=== PATIENT | male | born 1960 | race Caucasian/White ===

== ENCOUNTER 2024-10-03 17:16 | Emergency (ER) | payer MEDICAID, SELFPAY ==
[2024-10-03] VITALS (12 sets, daily range): BP systolic 93–129; BP diastolic 58–92; PULSE 60–90; RESP 12–21; TEMP 36.6–36.7; O2SAT 93–100; BMI 21.4
--- NOTE | 2024-10-03 17:19 | XR_ITS ---
PROCEDURE INFORMATION: Exam: XR Chest Exam date and time: 10/03/2024 5:31 PM Age: 64 years old Clinical indication: Injury or trauma; Fall; Blunt trauma (contusions or hematomas); Additional info: Fall, L shoulder/clav pain TECHNIQUE: Imaging protocol: Radiologic exam of the chest. Views: 1 view. COMPARISON: CR XR CLAVICLE LT 10/03/2024 5:31 PM FINDINGS: Lungs: Unremarkable. No consolidation. Pleural spaces: Unremarkable. No pleural effusion. No pneumothorax. Heart/Mediastinum: Unremarkable. No cardiomegaly. Bones/joints: Comminuted segmental fractures of the mid to distal left clavicle redemonstrated. Displaced fractures of the posterior left 6th through 8th ribs noted thought to be subacute to chronic. Old fracture of the right posterior 7th rib noted. Resection of the distal right clavicle. Old healed fracture of the proximal right humerus. IMPRESSION: 1. Comminuted segmental left clavicle fracture redemonstrated. 2. Left posterior 6th through 8th rib fractures favored to be subacute to chronic. No other acute abnormality identified.
--- NOTE | 2024-10-03 17:19 | XR_ITS ---
PROCEDURE INFORMATION: Exam: XR Left Shoulder Exam date and time: 10/03/2024 5:31 PM Age: 64 years old Clinical indication: Injury or trauma; Fall; Blunt trauma (contusions or hematomas); Shoulder; Left; Additional info: Fall, anterior joint pain TECHNIQUE: Imaging protocol: Radiologic exam of the left shoulder. Views: 2 or more views. COMPARISON: CR XR CLAVICLE LT 10/03/2024 5:31 PM FINDINGS: Bones/joints: A fracture of the mid left clavicle with inferior displacement of the distal fracture component noted. Additional fracture of the more distal portion of the left clavicle noted that may be acute versus subacute. Evidence for displaced fractures of the posterolateral left 6th and 7th ribs of indeterminate age. Old fracture of the lateral 4th left rib noted. Soft tissues: Normal. IMPRESSION: 1. Comminuted left clavicle fractures. The distal fracture component potentially may be subacute. 2. Fractures of the left 6th and 7th ribs of indeterminate age and potentially may be healing or healed fractures if no specific symptoms in this region.
--- NOTE | 2024-10-03 17:19 | XR_ITS ---
PROCEDURE INFORMATION: Exam: XR Left Clavicle, Complete Exam date and time: 10/03/2024 5:31 PM Age: 64 years old Clinical indication: Injury or trauma; Fall; Blunt trauma (contusions or hematomas); Shoulder; Left; Additional info: Fall, deformity TECHNIQUE: Imaging protocol: Radiologic exam of the left clavicle. Complete exam. Views: Any number of views. COMPARISON: CR XR SHOULDER LT MIN 2V 10/03/2024 5:31 PM FINDINGS: Bones/joints: Comminuted segmental fracture of the mid to distal left clavicle. The most distal fracture component potentially may be subacute. Soft tissues: Normal. IMPRESSION: Comminuted left clavicle fractures redemonstrated.
[2024-10-03] MEDS: KETOROLAC 30MG/ML VIAL 15 MG IV (17:27)
[2024-10-03] MEDS: HYDROMORPHONE 2MG/ML SYRINGE 0.5 MG IV (17:28)
[2024-10-03 17:33] LABS: Basophils % 0.2 % (0.1-2.0); Eosinophils # 0.2 Kmm3 (0.0-0.4); Eosinophils % 2.2 % (0.1-12.0); Hemoglobin 11.5 g/dL (14.1-18.0); Immature Granulocytes # 0.03 10^3uL; Immature Granulocytes % 0.3 %; Lymphocytes # 2.5 K/mm3 (0.7-4.5); Lymphocytes % 23.3 % (10-50); Mean Corpuscular HGB Conc 31.1 g/dL (31.8-35.4); Mean Corpuscular Hemoglobin 24.5 pg (27.0-31.2); Mean Corpuscular Volume 78.7 fl (80-94); Mean Platelet Volume 10.4 fl (7.4-10.4); Monocytes # 1.4 K/mm3 (0.1-1.0); Monocytes % 12.7 % (1.7-9.3); Neutrophils # 6.7 K/mm3 (1.8-7.8); Neutrophils % 61.3 % (37.0-80.0); Nucleated Red Blood Cells # 0 10^3/uL; Nucleated Red Blood Cells % 0 %; Platelet Count 453 K/mm3 (142-424); Red Cell Distribution Width 21.5 % (11.5-17.5); Red Cell Distribution Width-SD 58.4 fL; White Blood Count 10.8 K/mm3 (4.8-10.8)
--- NOTE | 2024-10-03 17:33 | XR_ITS ---
PROCEDURE INFORMATION: Exam: XR Left Foot Exam date and time: 10/03/2024 5:35 PM Age: 64 years old Clinical indication: Other: Wound; Additional info: Wound 1st digit TECHNIQUE: Imaging protocol: Radiologic exam of the left foot. Views: 3 or more views. COMPARISON: No relevant prior studies available. FINDINGS: Bones/joints: Hallux valgus and bunion and degenerative changes of the 1st MTP joint. Small ulcer lateral to the 1st metatarsal head. No underlying osteomyelitis. No acute fracture identified. Soft tissues: Normal. IMPRESSION: Small ulcer adjacent to the 1st metatarsal head with no acute bony abnormality.
[2024-10-03 17:36] LABS: Albumin Level 4.1 g/dl (3.5-5.0); Chloride 107 mmol/L (98-107)
[2024-10-03 17:37] LABS: Potassium 3.9 mmoL/L (3.5-5.1); Sodium 139 mmol/L (136-145)
[2024-10-03 17:39] LABS: Alanine Aminotransferase 17 U/L (12-78); Anion Gap 10.9 mEq/L (5-15); Aspartate Amino Transferase 25 U/L (17-59); Blood Urea Nitrogen 3 mg/dl (9-20); Carbon Dioxide 25 mmol/L (22.0-30.0); Creatinine Clearance Estimated 71 mL/min (50-200); Estimated Glomerular Filt Rate 168 ml/min (>60); GFR (African American) 204 ML/MIN (>60)
[2024-10-03 17:40] LABS: Albumin/Globulin Ratio 1.3 (1.1-1.8); Alkaline Phosphatase 71 U/L (38-126); Bilirubin,Total 0.4 mg/dl (0.2-1.3); Calcium 8.8 mg/dl (8.4-10.2); Chol/HDL Ratio 2.6 (1-3.5); Cholesterol 124 mg/dl (140-200); Globulin 3.1 g/dL (1.3-3.2); Glucose 97 mg/dl (74-100); HDL Cholesterol 47 mg/dl (40-60); Total Protein,Serum 7.2 g/dl (6.3-8.2); Triglycerides 127 mg/dl (30-150); VLDL Cholesterol 25 mg/dL (0-40)
--- OUTSIDE RECORDS SUMMARY | 2024-10-03 17:40 | XMS_ITS | Clinical Summary ---
Author Organization [facility] are -Transitions Address [address] [place] [phone] Phone Care Team Providers Care Director Of Operations For Therapy Name Role Phone Darshana Hoffmann APRN Primary Care Physician + Conditions or Problems Problem Name Problem Code Onset Date Status Entry Date Provider Comment Standard Description Annotate Body mass index (BMI) 21.0-21.9; adult Z68.21 (ICD-10-CM) 05/05 Active 05/05 Darshana Hoffmann APRN Body mass index [BMI] 21.0-21.9, adult Body mass index (BMI) 25.0-25.9; adult Z68.25 (ICD-10-CM) 04/21 Correctio n 04/21 Darshana Hoffmann APRN Body mass index [BMI] 25.0-25.9, adult Leg cramps 005175790 (SNOMED CT) 05/05 Active 05/05 Darshana Hoffmann APRN Cramp in lower limb Leg pain, bilateral 05752055 (SNOMED CT) 04/21 Active 04/21 Akilah Elder MANAGER CONTRACT Pain in lower limb Body mass index (BMI) 25.0-25.9; adult Z68.25 (ICD-10-CM) 04/21 Removed 04/21 Akilah Elder MANAGER CONTRACT Body mass index [BMI] 25.0-25.9, adult Body mass index (BMI) 21.0-21.9; adult Z68.21 (ICD-10-CM) Correctio n Akilah Elder APRN Body mass index [BMI] 21.0-21.9, adult Sore throat (acute) 720113781 (SNOMED CT) 04/21 Inactive 04/21 Akilah Mejíazenobia MANAGER CONTRACT Pain in throat Runny nose 49654098 (SNOMED CT) 04/21 Inactive 04/21 Akilah Elder MANAGER CONTRACT Rhinitis Body mass index (BMI) 21.0-21.9; adult Z68.21 (ICD-10-CM) Removed Junejennifer Salazar MANAGER CONTRACT Body mass index [BMI] 21.0-21.9, adult Body mass index (BMI) 20.0-20.9; adult Z68.20 (ICD-10-CM) Correctio n Junejennifer Ayalamary anne MANAGER CONTRACT Body mass index [BMI] 20.0-20.9, adult Neck pain, chronic 25731104267 07 (SNOMED CT) Active Deepti Ayalamary anne MANAGER CONTRACT Chronic neck pain Body mass index (BMI) 20.0-20.9; adult Z68.20 (ICD-10-CM) Removed Darshana Hoffmann APRN Body mass index [BMI] 20.0-20.9, adult Body mass index (BMI) 19 or less; adult Z68.1 (ICD-10-CM) 08/19 Correctio n 08/19 Darshana Hoffmann APRN Body mass index [BMI] 19.9 or less, adult Body mass index (BMI) 19 or less; adult Z68.1 (ICD-10-CM) 08/19 Removed 08/19 Darshana Potts APRN Body mass index [BMI] 19.9 or less, adult Screening for diabetes mellitus 034494756 (SNOMED CT) 08/19 Inactive 08/19 Darshana Potts APRN Diabetes mellitus screening Screening for prostate cancer 040089980 (SNOMED CT) 08/19 Inactive 08/19 Darshana Potts MANAGER CONTRACT Screening for malignant neoplasm of prostate Hx of CVA 028249940 (SNOMED CT) 08/19 Active 08/19 Darshana Potts MANAGER CONTRACT History of cerebrovascula r accident RIGHT PONTINE STROKE Tobacco User 815159815 (SNOMED CT) 08/19 Active 08/19 Darshana Potts MANAGER CONTRACT Tobacco user Hx of alcohol abuse 748816183 (SNOMED CT) 08/19 Active 08/19 Darshana Potts APRN History of alcohol abuse Hx of iron deficiency anemia 574890485 (SNOMED CT) 08/19 Active 08/19 Darshana Potts APRN H/O: anemia - iron deficient Screening for colon cancer 514546607 (SNOMED CT) 08/19 Inactive 08/19 Darshana Potts APRN Screening for malignant neoplasm of colon CLOSED FRACTURE OF NAVICULAR BONE OF WRIST S62.009 (ICD-10-CM) 11/29 Active 11/29 Pratik Monique MD Unspecified fracture of navicular [scaphoid] bone of unspecified wrist FRACTURE, WRIST, RIGHT 46946024 (SNOMED CT) 11/23 Active 11/23 Pratik Monique MD Fracture of carpal bone HYPERTENSIO N 26655731 (SNOMED CT) 11/22 Active 11/22 Pratik Monique MD Hypertensive disorder ALCOHOL ABUSE 65164081 (SNOMED CT) 11/22 Active 11/22 Pratik Monique MD Harmful pattern of use of alcohol WRIST PAIN RIGHT M25.539 (ICD-10-CM) 11/22 Active 11/22 Pratik Monique MD Pain in unspecified wrist Medications Medication Instructions Start Date Stop Date Generic Name ND Provider loperamide 2 mg tablet TAKE 2 TABLETS BY MOUTH ONCE THEN TAKE 1 TABLET AFTER EACH LOOSE BOWEL MOVEMENT. MAX 6 TABLETS IN 24 HOURS. FOR DIARRHEA loperamide 15308182465 Darshana Hoffmann APRN LOPERAMIDE HCL 2 MG TABS TAKE 2 TABLETS BY MOUTH ONCE THEN TAKE 1 TABLET AFTER EACH LOOSE BOWEL MOVEMENT. MAX 6 TABLETS IN 24 HOURS. as neededFOR DIARRHEA loperamide 69422237489 Darshana Hoffmann APRN SM IRON 325 (65 Fe) MG TABS Take 1 tablet by mouth once a day ferrous sulfate 60872092701 Darshana Hoffmann APRN LORATADINE 10 MG TABS as needed as directed TAKE 1 TABLET BY MOUTH EVERY DAY for runny nose and allergies loratadine 73706602853 Akilah Elder APRN FLUTICASONE PROPIONATE 50 MCG/ACT SUSP [place] 2 spray into both nostrils once a day as needed as directed FOR NASAL CONGESTION fluticasone propionate 02939789526 Akilah Elder APRN COUGH DROPS 5 MG LOZG Hold 1 lozenge in mouth four times a day as needed for cough/sore throat menthol 65566137053 Akilah Elder APRN NICODERM CQ 14 MG/24HR PT24 Apply 1 patch to skin once a day remove and replace patch daily for 6 weeks nicotine 72904946645 Deepti Salazar APRN ACETAMINOPHEN 500 MG TABS Take 1 tablet by mouth every six to eight hours as needed for pain for neck pain acetaminophen 70571243570 Deepti Salazar APRN ATORVASTATIN CALCIUM 40 MG TABS Take 1 tablet by mouth every night atorvastatin 96890801760 Darshana Hoffmann APRN CLOPIDOGREL BISULFATE 75 MG TABS TAKE 1 TABLET BY MOUTH EVERY DAY clopidogrel 02782529205 Darshana Hoffmann APRN ESCITALOPRAM OXALATE 10 MG TABS Take 1 tablet by mouth once a day escitalopram oxalate 15927012486 Darshana Hoffmann APRN LISINOPRIL 5 MG TABS Take 1 tablet by mouth once a day lisinopril 37293601213 Darshana Hoffmann APRN OXCARBAZEPINE 150 MG TABS 1 tablet by mouth twice a day oxcarbazepine 68350782723 Darshana Hoffmann APRN PANTOPRAZOLE SODIUM 40 MG TBEC Take 1 tablet by mouth once a day pantoprazole 40730016758 Darshanaisabel Hoffmann APRN TAMSULOSIN HCL 0.4 MG CAPS Take 1 capsule by mouth every night for prostate tamsulosin 89266831780 Darshana Hoffmann APRN TRAZODONE HCL 50 MG TABS Take 1 tablet by mouth every night at bedtime as needed as directed trazodone 73717543331 Darshanaisabel Hoffmann APRN ATORVASTATIN CALCIUM 40 MG TABS Take 1 tablet by mouth every night atorvastatin 94320370102 Darshana Delroy CHESTERN AMLODIPINE BESYLATE 5 MG TABS Take 1 tablet by mouth once a day amlodipine 17357526356 Darshana Potts APRN AMLODIPINE BESYLATE 5 MG TABS TAKE 1 TABLET BY MOUTH 1 TIME A DAY AMLODIPINE BESYLATE 12026452491 Pratik Monique MD Medications Administered No information available. Allergies, Adverse Reactions, Alerts Allergy Name Reaction Description Start Date Severity Statu s Provider IBUPROFEN pt breaks out in hives Severe Active Pratik Monique MD Results Date Name Value Unit Range Flag Description Office Visit: Hx of CVA LDL GOAL <70 mg/dL LDL target l evel Clinical Lists Update: Prelo ad Flowsheet - 06/22/22 bloodwork LDL 56 mg/dL Cholesterol i n LDL [Mass/volume] in Serum or Plasma - mg/dL HDL 58 mg/dL Cholesterol i n HDL [Mass/volume] in Serum or Plasma - mg/dL TRIGLYC TOT 91 mg/dL Triglycer alpesh [Mass/volume] in Serum or Plasma - mg/dL CHOLESTEROL 131 mg/dL Cholester ol [Mass/volume] in Serum or Plasma - mg/dL TRANSFERRIN 280 mg/dL transferr in, serum TIBC 392 ug/dL Iron binding capacity [Mass/volume] in Serum or Plasma EGFR 111 mL/min/1 .73m2 Glomerular filtration rate/1.73 sq M.predicted [Volume Rate/Area] in Serum, Plasma or Blood by Creatinine-based formula (MDRD) CO2 TOTAL 22 mmol/L carbon diox alpesh, serum, total Lab Report: HEPATITIS PANEL, ACUTE W/REFLEX TO CONFIRMATION, HEPATITIS P ... HGBA1C 4.9 % OF TOTAL HGB % <5.7 N Hemoglobin A1c/Hemoglobin, total in Blood - % TSH 2.59 u[iU]/mL 0.40-4.50 N Thyrotropi n [Units/volume] in Serum or Plasma PSA 2.91 ng/mL < OR = 4.00 N Prostate specific Ag [Mass/volume] in Serum or Plasma B12 831 pg/mL 200-1100 N Cobalamin (V itamin B12) [Mass/volume] in Serum or Plasma FOLATE 14.2 ng/mL N Folate [Mass/volume] in Serum or Plasma IRON SATUR % 3 % (CALC) % 20-48 L Iron saturation [Mass Fraction] in Serum or Plasma IRON 13 ug/dL 50-180 L Iron [Mass/vo lume] in Serum or Plasma HCV RNA QT <15 NOT DETECTED IU/mL [iU]/mL NOT DETECTED N Hepatitis C virus RNA [Units/volume] (viral load) in Specimen by EJ with probe detection HEP C AB REACTIVE NON-REACTIV E A Hepatitis C virus Ab [Presence] in Serum HB CORE IGM NON-REACTIVE NON-REACTIV E N Hepatitis B virus core IgM Ab [Units/volume] in Serum HBSAG NON-REACTIVE NON-REACTIV E N Hepatitis B virus surface Ag [Units/volume] in Serum ANTI-HAV IGM NON-REACTIVE NON-REACTI V E N Hepatitis A virus IgM Ab [Presence] in Serum Lab Report: COMPREHENSIVE ME TABOLIC PANEL, CBC (INCLUDES DIFF/PLT) BASO % MANU 0.7 % N basophils as percent of blood leukocytes, manual count EOS % MANU 2.1 % N eosinophil s as percent of blood leukocytes, manual count MONOCYTE % 14.3 % N Monocytes/ 100 leukocytes in Blood by Automated count LYMPH% P BLD 33.6 % N lymphocy jessica as percent of blood leukocytes PMN % 49.3 % N Neutrophils/1 00 leukocytes in Blood by Automated count ABS BASOS 62 {Cells}/ uL 0-200 N Basophils [#/volume] in Blood ABS EOS 187 {Cells}/ uL 15-500 N Eosinophils [#/volume] in Blood ABS MONOS 1273 {Cells}/ uL 200-950 H Monocytes [#/volume] in Blood ABSLYMPHCT 2990 {Cells}/ uL 850-3900 N Lymphocytes [#/volume] in Blood ABS NEUTROPH 4388 CELLS/UL 10*3/uL 9665-3618 N Neutrophils [#/volume] in Blood MPV 11.4 fL 7.5-12.5 N Platelet afua n volume [Entitic volume] in Blood by Bhupendra PLATELETK/UL 414 THOUSAND/UL 10*3/uL 140-400 H platelet count RDW 16.4 % 11.0-15.0 H Erythrocyte distribution width [Ratio] by Automated count OL-MCHC 30.0 g/dL 32.0-36.0 L mean corpus cular hemoglobin concentration, rbc MCH 24.4 pg 27.0-33.0 L MCH [Entiti c mass] by Automated count MCV 81.3 fL 80.0-100.0 N MCV [Entit ic volume] by Automated count HCT 34.7 % 38.5-50.0 L Hematocrit [Volume Fraction] of Blood by Automated count HGB 10.4 g/dL 13.2-17.1 L Hemoglobin [Mass/volume] in Blood RBC M/UL 4.27 MILLION/UL 10*6/uL 4.20-5.80 N red blood count WBC CT BLOOD 8.9 10*3/uL 3.8-10.8 N leukocy te count, blood SGPT (ALT) 15 U/L 9-46 N Alanine aminotransferase [Enzymatic activity/volume] in Serum or Plasma SGOT (AST) 17 U/L 10-35 N Aspartate aminotransferase [Enzymatic activity/volume] in Serum or Plasma ALK PHOS 64 U/L 35-144 N Alkaline phosphatase [Enzymatic activity/volume] in Blood BILI TOTAL 0.6 mg/dL 0.2-1.2 N Bilirubin. total [Mass/volume] in Serum or Plasma A/G RATIO 1.4 (calc) 1.0-2.5 N Albumin/ Globulin [Mass Ratio] in Serum or Plasma GLOBULIN TOT 2.9 G/DL (CALC) g/dL 1.9-3.7 N Globulin [Mass/volume] in Serum ALBUMIN EOP 4.2 g/dL 3.6-5.1 N Albumin [Mass/volume] in Serum or Plasma by Electrophoresis PROTEIN, TOT 7.1 g/dL 6.1-8.1 N Protein [Mass/volume] in Serum or Plasma CALCIUM 9.3 mg/dL 8.6-10.3 N Calcium [Moles/volume] in Serum or Plasma CO2 25 mmol/L 20-32 N Carbon dioxid e, total [Moles/volume] in Venous blood CHLORIDE BLD 102 mmol/L 98-110 N chloride , blood POTASSIUM 4.2 mmol/L 3.5-5.3 N Potassium [Moles/volume] in Serum or Plasma SODIUM 135 mmol/L 135-146 N Sodium [Moles/volume] in Serum or Plasma BUN/CREAT 14 (calc) 6-22 N Urea nitrogen/Creatinine [Mass Ratio] in Serum or Plasma CREATININE 0.69 mg/dL 0.70-1.35 L Creatini ne [Mass/volume] in Serum or Plasma BUN 10 mg/dL 7-25 N Urea nitrogen [Mass/volume] in Serum or Plasma GLUCOSE SER 105 mg/dL 65-99 H Glucose [Mass/volume] in Serum or Plasma Plan of Care Type Date Detail Referral [employer] [facility] [place], [address] Pending order T1 CBC with diff Pending order T1 CMP Pending order T1 CBC with diff Pending order T1 CMP Pending order T1 HGBA1c Pending order T1 TSH reflex to free T4 Pending order T1 Prostate Scre ening Pending order T1 Acute Hepatit s Panel Pending order T1 TIBC w iron l evel Pending order T1 B12 Pending order T1 Folic Acid Pending order T1 G.C. Chlamydi a Pending order T1 G.C. Chlamydi a Pending Order exclud ed from report: Pending order MRI Wrist w-out contrast Pending order X-Ray Wrist Patient education Patient Educat ion Given Patient education Patient Educat ion Given Patient education Patient Educat ion Given Procedures Code Procedure Name Date Entry Date CPT-3074F Most recent systolic blood pressure <130 mm Hg CPT-3078F Most recent diastoli c blood pressure <80 mm Hg CPT-1159F Medication list docu mented in medical record [facility]-[id number] Medication Reconciliation 4004F Patient screened for tobacco use and received tobacco cessation intervention [id number] Current every day smoker 20 11/03/18 [id number] Smoking cessation education CPT-1160F Review of all medica tions by a prescribing practitioner [facility] 6399 T1 CBC with diff [facility] 36524 T1 CMP [id number] Medication Reconciliation CPT-3074F Most recent systolic blood pressure <130 mm Hg CPT-3078F Most recent diastoli c blood pressure <80 mm Hg CPT-1159F Medication list docu mented in medical record CPT-1160F Review of all medica tions by a prescribing practitioner 4004F Patient screened for tobacco use and received tobacco cessation intervention [id number] Current every day smoker 20 11/03/04 [id number] Smoking cessation education [id number] Giving encouragement to exercise 4004F Patient screened for tobacco use and received tobacco cessation intervention [id number] Medication Reconciliation CPT-3074F Most recent systolic blood pressure <130 mm Hg CPT-3078F Most recent diastoli c blood pressure <80 mm Hg CPT-1159F Medication list docu mented in medical record CPT-1160F Review of all medica tions by a prescribing practitioner [id number] Medication Reconciliation 4004F Patient screened for tobacco use and received tobacco cessation intervention [id number] Current every day smoker 20 08/02/29 [id number] Smoking cessation education CPT-3074F Most recent systolic blood pressure <130 mm Hg CPT-3078F Most recent diastoli c blood pressure <80 mm Hg CPT-1159F Medication list docu mented in medical record CPT-1160F Review of all medica tions by a prescribing practitioner CPT-1159F Medication list docu mented in medical record CPT-3075F Most recent systolic blood pressure 130-139 mm Hg CPT-3078F Most recent diastoli c blood pressure <80 mm Hg [facility] 41904 T1 G.C. Chlamydia 4004F Patient screened for tobacco use and received tobacco cessation intervention [facility]-[id number] Medication Reconciliation [facility] 6399 T1 CBC with diff [facility] 20516 T1 CMP [facility] 496 T1 HGBA1c [facility] 04803 T1 TSH reflex to free T4 06/21/03 [facility] 5363 T1 Prostate Screening 08/19 [facility] 00443 T1 Acute Hepatits Panel 2022 [facility] 7573 T1 TIBC w iron level [facility] 927 T1 B12 [facility] 466 T1 Folic Acid ORTHO COMMON Orthopedic Referral [facility] 20 30/12/28 mri wrist w-o edg MRI Wrist w-out contrast X-Ray Wrist X-Ray Wrist Vital Signs Date Name Value Unit Description BMI (Body Mass Index) 21.82 kg/m2 Bod y Mass Index (Ratio) Body Temperature 98.2 [degF] temperat ure E&M Body Temperature 36.78 Dorota temperat ure in centigrade E&M BP Diastolic 68 mm[Hg] blood pressu re, diastolic BP Systolic 107 mm[Hg] blood pressur e, systolic BSA (Body Surface Area) 1.84 b danelle surface area Heart Rate 72 /min pulse rate Height 70 [in_us] height E&M Height 177.8 cm height in cent imeters E&M Weight Measured 68.86 kg weight in kilograms E&M Weight Measured 151.5 [lb_av] weight E& M Weight Measured 151.5 [lb_av] weight E& M Heart Rate 89 /min pulse rate 10 Immunizations Vaccine Administration Date Standard Description CVX Co de Dose flu vax#1 141 Unknown Adacel Intramuscular Suspension 5-2-15.5 Adacel Intramuscular Suspension 5-2-15.5 115 Unknown Advance Directives No information available.
--- OUTSIDE RECORDS SUMMARY | 2024-10-03 17:40 | XMS_ITS | Clinical Summary ---
Author Organization [facility] Address [facility] [place] [address] Phone Care Team Providers Care Clay Hoister Name Role Phone Brandy Martell Unavailable [phone] Conditions or Problems No information available. Medications No information available. Medications Administered No information available. Allergies, Adverse Reactions, Alerts No information available. Results No information available. Plan of Care No information available. Procedures No information available. Vital Signs No information available. Immunizations No information available. Advance Directives No information available.
--- NOTE | 2024-10-03 17:45 | PC.NURSE ---
CONSULTED ON THE PTS XRAYS
[2024-10-03 17:51] LABS: Direct LDL Cholesterol 39.27 mg/dL (100-129)
--- NOTE | 2024-10-03 17:51 | ED_ITS ---
Discharge Plan Disposition Patient Disposition: Home, Self-Care Prescriptions Prescriptions: New doxycycline hyclate 100 mg capsule 100 mg PO BID 7 Days Qty: 14 0RF Referrals Follow up/Referrals: Provider,Referral, MD [Primary Care Provider, Medical] - See instructions Nate Patterson DO [Staff Physician, Orthopedics] - See instructions Krista Almodovar DPM [Staff Physician, Podiatry] - See instructions Activity Restrictions/Add. Instructions Additional Instructions/Restrictions: Call your family doctor to establish care for this visit to the emergency department and schedule follow-up within 48 hours to ensure improvement. If you have any worsening of your condition or any other concerning signs or symptoms, return to the emergency department or your primary care doctor for further evaluation. Call Dr. Almodovar for your foot to schedule follow-up with her in order to manage the ulcer. Doxycycline twice daily for 7 days. While taking doxycycline, limit sunlight exposure. It can cause severe sunburns even if you do not typically get sunburn. Be sure to wear hats, long sleeves, sunscreen if you are out in the sun for prolonged periods of time while taking doxycycline. Call Dr. Patterson to have clavicle (collarbone) managed to determine whether or not you need surgery in the long-term. Clinical Impressions Clinical Impression: Cellulitis of left foot, Closed fracture of left clavicle Print Language Print Language: Swazi Discharge ED Provider: Abhinav Huitron General Adult HPI General Chief complaint: Extremity Injury, Upper Stated complaint: Fall Time Seen by Provider: 10/03/24 17:19 History of Present Illness HPI narrative: Please note that above description of symptoms, in this electronic medical record under categorization of recalled from ER triage doctor by RN are reflective of an initial nursing assessment, however, is not reflective of my full history and physical exam that was personally taken and clarified. Consequentially, this preceding description of symptoms, which may include the patient's categorized chief complaint in the EMR, do not reflect my personal clinical impression, and the ultimate description of history of present illness and patient stated complaints should be deferred to this section of the note. Unless stated otherwise or congruent with this section of the note, additional signs, symptoms, or incongruence should be interpreted as inaccurate with my clinical impression. Related Data Previous Rx's ?Medication ?Instructions ?Recorded doxycycline hyclate 100 mg capsule 100 mg PO BID 7 day s #14 caps 10/03/24 Allergies Allergy/AdvReac Type Severity Reaction Status Date / Time aspirin Allergy Unknown Verified 10/03/24 17:23 allergy reaction [facility] Disclaimer: The information contained in this section may have been updated after the patient was seen, as this information can be updated by other users. Social History Smoking Status: Current every day smoker alcohol intake: never current occupational status: retired Travel in the last 8 weeks?: None ROS Obtained: Yes All systems reviewed & no additional complaints except as documented Physical Exam General General appearance: alert and in distress (secondary to pain) Head Head exam: atraumatic and normocephalic Eye Eye exam: Present normal appearance, PERRL and EOMI Neck Neck exam: Present normal inspection, full ROM and trachea midline Chest Chest inspection: Present tenderness (Left upper outer chest with obvious deformity tenting the skin at the clavicle) Respiratory Respiratory exam: Present normal lung sounds bilaterally; Absent respiratory distress, wheezes, stridor, accessory muscle use or prolonged expiratory phase Cardiovascular Cardiovascular exam: Present other (Pulses equal symmetric in upper and lower extremities) Abdominal Exam Abdominal exam: Present soft; Absent distention, tenderness or pulsatile mass Extremities Exam Extremities exam: Present other (Tenderness of the proximal shoulder anteriorly in the joint space. No obvious deformity or swelling of the shoulder itself.); Absent edema Neurological Exam Neurological exam: Present alert, oriented X3 and CN II-XII intact; Absent motor sensory deficit Skin Skin exam: Present warm and dry; Absent diaphoresis or erythema Medical Decision Making Medical Records Medical records reviewed: Yes I reviewed the patient's medical records. Screening: Per USPSTF and CDC recommendations, given the prevalence of disease in our region, it is our hospital?s policy to screen for HIV and viral Hepatitis for all patients aged 18 and over and those with ongoing risk factors. Thai Inquiry Pt receiving controlled substance: No Thai was queried for this patient: No Vital Signs: 10/03/24 17:31 10/03/24 17:49 10/03/24 18:15 Temperature 97.8 F Temperature Source Oral Pulse Rate 82 65 Pulse Rate [Left] 90 Respiratory Rate 21 16 18 Blood Pressure 117/82 117/82 Blood Pressure [Right Arm] 103/79 L Blood Pressure Mean Blood Pressure Mean [Right Arm] 87 Blood Pressure Source Blood Pressure Source [Right Arm] Automatic Cuff 02 Sat by Pulse Oximetry 93 L 95 97 Oxygen Delivery Method Room Air 10/03/24 18:35 10/03/24 18:37 Temperature Temperature Source Pulse Rate 62 67 Pulse Rate [Left] Respiratory Rate 16 16 Blood Pressure 128/92 H 128/92 H Blood Pressure [Right Arm] Blood Pressure Mean 99 Blood Pressure Mean [Right Arm] Blood Pressure Source Automatic Cuff Blood Pressure Source [Right Arm] 02 Sat by Pulse Oximetry 98 97 Oxygen Delivery Method Room Air Lab Data Lab Results 10/03/24 17:20: WBC 10.8, RBC 4.70, Hgb 11.5 L, Hct 37.0 L, MCV 78.7 L, MCH 24.5 L, MCHC 31.1 L, RDW 21.5 H, Plt Count 453 H, MPV 10.4, Neut % (Auto) 61.3, Lymph % (Auto) 23.3, Custer % (Auto) 12.7 H, Eos % (Auto) 2.2, Baso % (Auto) 0.2, Neut # (Auto) 6.7, Lymph # (Auto) 2.5, Custer # (Auto) 1.4 H, Eos # (Auto) 0.2, Baso # (Auto) 0.0, ESR 17, Sodium 139, Potassium 3.9, Chloride 107, Carbon Dioxide 25, Anion Gap 10.9, BUN 3 L, Creatinine 0.50 L, Estimated Creat Clear 71, Estimated GFR 168, Est GFR ( Amer) 204, Glucose 97, Hemoglobin A1c 5.3, Calcium 8.8, Total Bilirubin 0.4, AST 25, ALT 17, Alkaline Phosphatase 71, C-Reactive Protein 37.6 H, Total Protein 7.2, Albumin 4.1, Globulin 3.1, Albumin/Globulin Ratio 1.3, Triglycerides 127, Cholesterol 124 L, LDL Cholesterol Direct 39.27 L, VLDL Cholesterol 25, HDL Cholesterol 47, Cholesterol/HDL Ratio 2.6 10/03/24 17:42: Lactate 1.8 10/03/24 18:32: HCV Ab JACQUELINE w/Rflx PCR Qn Reactive, HIV Ag/Ab Combo Qual Negative 10/03/24 17:20 10/03/24 17:20 Orders (Tests/Meds): ED MEDICATIONS Generic Name Dose Route Start Last Admin Trade Name Freq PRN Reason Stop Dose Admin Vancomycin/PEG/NADA/Lysine/Water 1.25 gm in 250 mls @ 125 mls/hr 10/03/24 19:15 10/03/24 19:44 Vancomycin 1.25gm/250ml (Peg) Premix IV 10/03/24 21:14 125 mls/hr ONCE ONE Administration Miscellaneous 1 each 10/03/24 19:15 10/03/24 19:29 Vancomycin Consult Request NOTAPPLIC 11/02/24 19:14 1 each [facility]SULT [facility] Administration Discontinued Medications Generic Name Dose Route Start Last Admin Trade Name Alejandra PRN Reason Stop Dose Admin Hydromorphone HCl 0.5 mg 10/03/24 17:19 10/03/24 17:28 Hydromorphone 2mg/Ml Syringe IV 10/03/24 17:20 0.5 mg ONCE ONE Administration Cefepime HCl 2 gm/ Sodium 100 mls @ 200 mls/hr 10/03/24 19:11 10/03/24 19:20 Chloride IV 10/03/24 19:40 200 mls/hr ONCE ONE Administration Ketorolac Tromethamine 15 mg 10/03/24 17:19 10/03/24 17:27 Ketorolac 30mg/Ml Vial IV 10/03/24 17:20 15 mg ONCE ONE Administration ORDERS Category Date Time Status CT shoulder LT wo con Stat Cat Scan 10/03/24 17:59 Completed Clavicle XR left [XR clavicle LT] Stat Exams 10/03/24 17:19 Completed Shoulder XR left minimum 2 views [XR shoulder LT min 2V Exams 10/03/24 17:19 Completed ] Stat XR chest portable Stat Exams 10/03/24 17:19 Completed XR foot LT min 3V Stat Exams 10/03/24 17:33 Completed CBC w/Auto Diff [Complete Blood Count Auto Diff] Stat Lab 10/03/24 17:20 Completed CMP [Comprehensive Metabolic Panel] Stat Lab 10/03/24 17:20 Completed CRP [C-Reactive Protein] Stat Lab 10/03/24 17:20 Completed Erythrocyte Sedimentation Rate Stat Lab 10/03/24 17:20 Completed HCV RNA PCR, Quant Stat Lab 10/03/24 18:32 Received HIV Combo Stat Lab 10/03/24 18:32 Completed Hemoglobin A1C Stat Lab 10/03/24 17:20 Completed Hepatitis C Ab Qual. W/ RFX Stat Lab 06/18/25 18:32 Completed Lactic Acid Stat Lab 10/03/24 17:42 Completed Lipid Panel Stat Lab 10/03/24 17:20 Completed Blood Culture Stat Micro 10/03/24 17:42 Received Wound Culture and Gram Stain Stat Micro 10/03/24 17:38 Results Medical Decision Narrative: This is a 64-year-old male presenting with fall. He states he was sitting in his chair at his assisted facility when he leaned forward, fell out of his chair, landed on his left upper extremity as it was down by his side. Had immediate pain in his left shoulder. States he is unable to elevate his left arm secondary to pain. EMS was called. On arrival, concern for deformity brought him to the emergency department. On arrival to the emergency department, patient had significant pain in his left shoulder. Unable to move it actively due to pain. Passive range of motion intact, but limited secondary to pain. Has anterior left shoulder pain, but obvious deformity at the left clavicle with skin tenting and significant tenderness. I contacted orthopedics, he recommended no acute management especially given patient has pain in his left foot. Repeat evaluation with patient, he is complaining of pain in his medial aspect of his left foot at his first MTP. Patient has obvious ulcer, redness, erythema, pain. Is consistent with cellulitis. X-rays obtained to see if patient has any degree of osteomyelitis underlying. On independent interpretation, no obvious bony erosion. Patient given first dose of vancomycin and cefepime here. I touch base with hospital medicine, no acute need for admission at this time. I agree with this, soft tissue cellulitis able to be treated with outpatient doxycycline. Also, orthopedist said that patient would not be acutely treated in terms of his left clavicular fracture especially if patient has ongoing infection and risk for seeding the hardware at this time. I feel is appropriate. This was relayed to patient. He is agreeable to outpatient management. Because patient at baseline without signs or symptoms of clinical decompensation, deemed appropriate for discharge. Results were relayed to patient[] who voiced understanding and were agreeable to outpatient management and follow up. I discussed my clinical impression with patient[] and answered all questions. At this time, the evidence for any other entities in the differential is insufficient to warrant any further testing or ED observation. This was explained as well. Advisory was given that persistent or worsening symptoms require further evaluation. I confirmed the understanding of this discussion. Orthopedic Shoe Fitter disclaimer Much of this encounter note is an electronic tensile tester spoken language to printed text. Electronic tensile tester of the spoken language may permit errors. Although I have reviewed the note, some errors may still exist. Critical Care Critical Care Time Critical Care Time: No
--- NOTE | 2024-10-03 17:59 | CT_ITS ---
PROCEDURE INFORMATION: Exam: CT Left Upper Extremity Without Contrast, Shoulder Exam date and time: 10/03/2024 6:10 PM Age: 64 years old Clinical indication: Injury or trauma; Fall; Blunt trauma (contusions or hematomas); Shoulder; Left; Additional info: Eval clavicle and shoulder after fall TECHNIQUE: Imaging protocol: Computed tomography of the left upper extremity without contrast. Exam focused on the shoulder. Radiation optimization: All CT scans at this facility use at least one of these dose optimization techniques: automated exposure control; mA and/or kV adjustment per patient size (includes targeted exams where dose is matched to clinical indication); or iterative reconstruction. COMPARISON: CR XR SHOULDER LT MIN 2V 10/03/2024 5:31 PM FINDINGS: Bones/joints: A comminuted fracture of the mid left clavicle with inferior displacement of the major distal fracture component. 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 Old-appearing incompletely united fractures of the posterolateral left 6th through 8th ribs. Old healed fractures of some of the lateral left ribs also noted. No other acute fracture. Soft tissues: Normal. IMPRESSION: 1. Comminuted acute fracture of the mid left clavicle with inferior displacement of the distal fracture components. 2. 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 3. 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
[2024-10-03 18:05] LABS: Lactic Acid 1.8 mmol/L (0.7-2.1)
[2024-10-03 18:10] LABS: C-Reactive Protein 37.6 mg/L (0-4)
[2024-10-03 18:48] LABS: Erythrocyte Sedimentation Rate 17 mm/hr (0-20)
--- NOTE | 2024-10-03 19:09 | PC.NURSE ---
ed provider on the phone at this time speaking with consulting physician.
[2024-10-03] MEDS: CEFEPIME HCL 2 GM in 0.9 % SODIUM CHLORIDE 100 ML IV (19:20)
[2024-10-03 19:21] LABS: Hemoglobin A1C 5.3 % (4.0-6.0)
[2024-10-03] MEDS: VANCOMYCIN CONSULT REQUEST 1 EACH NOTAPPLIC (19:29)
--- NOTE | 2024-10-03 19:29 | PC.NURSE ---
pt resting in bed with eyes closed, nad noted, rr even and non labored, skin pwd.
[2024-10-03 19:40] LABS: HIV Combo NEGATIVE (Negative)
[2024-10-03] MEDS: VANCOMYCIN/WATER FOR INJ (PEG) 1.25 GM/250 ML PIGGYBACK IV (19:44)
[2024-10-03 19:48] LABS: Hepatitis C Ab Qual. W/ RFX REACTIVE (Negative)
--- NOTE | 2024-10-03 19:51 | PC.NURSE ---
Pepsi given upon request with a snack.
--- NOTE | 2024-10-03 21:44 | PC.NURSE ---
multiple attempts at contacting [facility] with no success. No contacts at [facility].
--- NOTE | 2024-10-03 21:47 | PC.NURSE ---
no answer at [facility] at this time either.
--- NOTE | 2024-10-03 21:59 | PC.NURSE ---
Sha Hernandez contacted at this time with staff stating I will try to get ahold of [facility] if I haven't gotten ahold of anybody by 10:10 I'll come and get him myself.
--- NOTE | 2024-10-05 09:01 | PC.NURSE ---
Wound culture results reviewed by Dr. Read, no new orders received at this time.
--- NOTE | 2024-10-06 14:19 | PC.NURSE ---
I spoke with regarding the pts final wound culture. no change needed to treatment plan.
== END 2024-10-03 22:20 | disposition home or self-care (01) ==
PROVIDERS: Emergency Provider Emergency Medicine
DX: S42.002A Fracture of unspecified part of left clavicle, initial encounter for closed fracture (principal); L03.116 Cellulitis of left lower limb; F17.210 Nicotine dependence, cigarettes, uncomplicated; W07.XXXA Fall from chair, initial encounter
CPT/HCPCS: 71045; 73000; 73030; 73200; 73630; 80053; 80061; 80074; 83036; 83605; 85025; 85651; 86140; 87040; 87070; 87077; 87186; 87205; 87389; 87522; 96365; 96366; 96375; 99285; J0692; J1171; J1885; J3372

== ENCOUNTER 2024-10-29 14:34 | Emergency (ER) | payer MEDICAID, SELFPAY ==
[2024-10-29] VITALS (8 sets, daily range): BP systolic 107–149; BP diastolic 74–109; PULSE 69–91; RESP 15–16; TEMP 36.6–36.7; O2SAT 95–100; BMI 21.9
--- NOTE | 2024-10-29 14:36 | ED_ITS ---
Discharge Plan Disposition Chief Complaint: PAIN Prescriptions Prescriptions: No Action doxycycline hyclate 100 mg capsule 100 mg PO BID 7 Days Qty: 14 0RF Referrals Follow up/Referrals: Provider,Referral, MD [Primary Care Provider, Medical] - See instructions Print Language Print Language: Armenian Discharge ED Provider: Tia Lopez General Adult HPI General Chief complaint: PAIN Stated complaint: infected toe Time Seen by Provider: 10/29/24 14:35 Mode of Arrival: EMS Source of Information: Patient Limitations: No Limitations History of Present Illness HPI narrative: 64-year-old male presents to the emergency department via EMS, for a 2-month history of left foot pain, and ongoing left foot wound, patient is somewhat of a poor historian, states he has past medical history consistent with hypertension, denies any history of type 2 diabetes, no diabetic foot ulcer diabetic neuropathy, patient was seen in the emergency department on September 2024 for similar complaint, diagnosed with left foot cellulitis, no evidence of osteomyelitis on radiographic findings and laboratory studies at that time. Was treated with outpatient antibiotics. Patient denies any chest pain shortness of breath, admits to subjective fever and chills, no recorded Tmax, denies any abdominal pain nausea vomiting constipation diarrhea, denies any urinary type symptomatology, patient has no radicular type otology, no back pain, pain is located in his left plantar aspect of his foot, where he has ongoing wound, patient is a current everyday smoker, former alcohol use disorder, states he is 2 months clean and sober, after being what sounds like admitted to alcohol rehabilitation , denies any illicit drug use. Initial triage vitals are unremarkable. Onset (ago): month(s) Related Data Previous Rx's ?Medication ?Instructions ?Recorded doxycycline hyclate 100 mg capsule 100 mg PO BID 7 day s #14 caps 10/03/24 Allergies Allergy/AdvReac Type Severity Reaction Status Date / Time aspirin Allergy Unknown Verified 10/03/24 17:23 allergy reaction [facility] Disclaimer: The information contained in this section may have been updated after the patient was seen, as this information can be updated by other users. Social History Smoking Status: Current every day smoker alcohol intake: never current occupational status: retired Travel in the last 8 weeks?: None Have you lived/traveled outside US in past 30 days?: No Contact w/someone who lives/traveled outside US past 30 days?: No Exposure to someone with infectious disease in past 14 days?: No Do you have a fever (greater than 100.4 F or 38 C)?: No Have you tested positive for COVID-19?: No Exposed to someone with COVID-19 in past 14 days?: No Do you have a sore throat?: No Do you have a cough?: No Do you have any weakness?: No Do you have any diarrhea?: No Are you experiencing any unusual bleeding?: No Do you have any muscle aches/pain?: No Do you have any abdominal pain?: No Are you experiencing loss of taste or smell?: No ROS Obtained: Yes All systems reviewed & no additional complaints except as documented Physical Exam General General appearance: alert and in no apparent distress Head Head exam: atraumatic and normocephalic Eye Eye exam: Present PERRL and EOMI ENT ENT exam: Present mucous membranes moist Neck Neck exam: Present normal inspection Chest Chest inspection: Present normal inspection and symmetric chest wall rise Respiratory Respiratory exam: Present normal lung sounds bilaterally; Absent respiratory distress Cardiovascular Cardiovascular exam: Present regular rate and normal rhythm Abdominal Exam Abdominal exam: Present soft; Absent tenderness, guarding or rebound Extremities Exam Extremities exam: Present normal inspection Neurological Exam Neurological exam: Present alert and oriented X3 Psychiatric Psychiatric exam: Present normal affect Skin Skin exam: Present warm, dry, erythema and other (There is an area of what appears to be a stage I-II diabetic foot ulcer, with some active purulent discharge, and overlying erythema, no real induration or fluctuance per my exam there is pain palpation over the area, otherwise neurovascular intact.) Medical Decision Making Medical Records Medical records reviewed: Yes I reviewed the patient's medical records. Screening: Per USPSTF and CDC recommendations, given the prevalence of disease in our region, it is our hospital?s policy to screen for HIV and viral Hepatitis for all patients aged 18 and over and those with ongoing risk factors. Thai Inquiry Pt receiving controlled substance: No Thai was queried for this patient: No Vital Signs: 10/29/24 14:39 10/29/24 14:48 10/29/24 15:01 Temperature 97.9 F 97.9 F Temperature Source Oral Oral Pulse Rate 75 75 Pulse Rate [Right] 75 Respiratory Rate 15 15 Blood Pressure 149/109 H 127/76 Blood Pressure [Right Arm] 149/109 H Blood Pressure Mean [Right Arm] 122 Blood Pressure Source Automatic Cuff Blood Pressure Source [Right Arm] Automatic Cuff Blood Pressure Position Supine Blood Pressure Position [Right Arm] Supine 02 Sat by Pulse Oximetry 96 96 96 Oxygen Delivery Method Room Air Room Air Lab Data Lab results reviewed: Yes I reviewed the patient's lab results. Orders (Tests/Meds): ORDERS Category Date Time Status CT foot LT w con Stat Cat Scan 10/29/24 14:53 Ordered CRP [C-Reactive Protein] Stat Lab 10/29/24 14:52 Ordered Complete Blood Count Auto Diff Stat Lab 10/29/24 14:52 Ordered Comprehensive Metabolic Panel Stat Lab 10/29/24 14:52 Ordered ESR [Erythrocyte Sedimentation Rate] Stat Lab 10/29/24 14:52 Ordered Lactic Acid Stat Lab 10/29/24 14:52 Ordered Blood Culture Stat Micro 10/29/24 15:54 Ordered Medical Decision Narrative: 64-year-old male presents to the emergency department with left foot pain/left foot wound, differential diagnosis include but not limited to diabetic foot ulcer, cellulitis, cellulitic abscess, osteomyelitis, NSTI, gangrene infection, pressure ulcer among others. Will obtain basic laboratory studies, inflammatory markers to include CRP and ESR, lactic acid level, and CT foot on the left with contrast.
--- OUTSIDE RECORDS SUMMARY | 2024-10-29 14:45 | XMS_ITS | Clinical Summary ---
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 Role Phone Darshana Hoffmann APRN Primary [...] mass index [BMI] 25.0-25.9, adult Leg cramps 639055836 (SNOMED CT) 05/05 Active 05/05 Darshana Hoffmann APRN Cramp in lower limb Leg pain, bilateral 31624588 (SNOMED CT) 04/21 Active 04/21 Akilah Elder [employer] Pain in lower limb Body mass index (BMI) 25.0-25.9; adult Z68.25 (ICD-10-CM) 04/21 Removed 04/21 Akilah Elder [employer] Body mass index [BMI] 25.0-25.9, adult Body mass index (BMI) 21.0-21.9; adult Z68.21 (ICD-10-CM) Correctio n Akilah Elder APRN Body mass index [BMI] 21.0-21.9, adult Sore throat (acute) 539870675 (SNOMED CT) 04/21 Inactive 04/21 Akilah Mejíazenobia [employer] Pain in throat Runny nose 02074411 (SNOMED CT) 04/21 Inactive 04/21 Akilah Elder [employer] Rhinitis Body mass index (BMI) 21.0-21.9; adult Z68.21 (ICD-10-CM) Removed Junejennifer Salazar [employer] Body mass index [BMI] 21.0-21.9, adult Body mass index (BMI) 20.0-20.9; adult Z68.20 (ICD-10-CM) Correctio n Junejennifer Ayalamary anne [employer] Body mass index [BMI] 20.0-20.9, adult Neck pain, chronic [id number] 07 (SNOMED CT) Active Deepti Ayalamary anne [employer] Chronic neck pain Body mass index (BMI) [...] or less, adult Screening for diabetes mellitus 819053451 (SNOMED CT) 08/19 Inactive 08/19 Darshana Potts APRN Diabetes mellitus screening Screening for prostate cancer 960661766 (SNOMED CT) 08/19 Inactive 08/19 Darshana Potts [employer] Screening for malignant neoplasm of prostate Hx of CVA 260448648 (SNOMED CT) 08/19 Active 08/19 Darshana Potts [employer] History of cerebrovascula r accident RIGHT PONTINE STROKE Tobacco User 155235262 (SNOMED CT) 08/19 Active 08/19 Darshana Potts [employer] Tobacco user Hx of alcohol abuse 379593524 (SNOMED CT) 08/19 Active 08/19 Darshaan Potts APRN History of alcohol abuse Hx of iron deficiency anemia 162609967 (SNOMED CT) 08/19 Active 08/19 Darshana Potts APRN H/O: anemia - iron deficient Screening for colon cancer 011098502 (SNOMED CT) 08/19 Inactive 08/19 Darshana Potts APRN Screening for malignant neoplasm of colon CLOSED FRACTURE OF NAVICULAR BONE OF WRIST S62.009 (ICD-10-CM) 11/29 Active 11/29 Pratik Monique MD Unspecified fracture of navicular [scaphoid] bone of unspecified wrist FRACTURE, WRIST, RIGHT 67525353 (SNOMED CT) 11/23 Active 11/23 Pratik Monique MD Fracture of carpal bone HYPERTENSIO N 53393420 (SNOMED CT) 11/22 Active 11/22 Pratik Monique MD Hypertensive disorder ALCOHOL ABUSE 97183635 (SNOMED CT) 11/22 Active 11/22 Pratik Monique [...] TABLETS IN 24 HOURS. FOR DIARRHEA loperamide 40429186666 Darshana Hoffmann APRN LOPERAMIDE HCL 2 MG TABS TAKE 2 TABLETS BY MOUTH ONCE THEN TAKE 1 TABLET AFTER EACH LOOSE BOWEL MOVEMENT. MAX 6 TABLETS IN 24 HOURS. as neededFOR DIARRHEA loperamide 72308061218 Darshana Hoffmann APRN iron 325 mg (65 mg iron) tablet Take 1 tablet by mouth once a day ferrous sulfate 14741521323 Darshana Hoffmann APRN LORATADINE 10 MG TABS as needed as directed TAKE 1 TABLET BY MOUTH EVERY DAY for runny nose and allergies loratadine 30789038645 Akilah Elder APRN FLUTICASONE PROPIONATE 50 MCG/ACT SUSP [place] 2 spray into both nostrils once a day as needed as directed FOR NASAL CONGESTION fluticasone propionate 65196714914 Akilah Elder APRN COUGH DROPS 5 MG LOZG Hold 1 lozenge in mouth four times a day as needed for cough/sore throat menthol 56120650689 Akilah Elder APRN NICODERM CQ 14 MG/24HR PT24 Apply 1 patch to skin once a day remove and replace patch daily for 6 weeks nicotine 90219368051 Deepti Salazar APRN ACETAMINOPHEN 500 MG TABS Take 1 tablet by mouth every six to eight hours as needed for pain for neck pain acetaminophen 23665142272 Deepti Salazar APRN ATORVASTATIN CALCIUM 40 MG TABS Take 1 tablet by mouth every night atorvastatin 81183109331 Darshana Hoffmann APRN CLOPIDOGREL BISULFATE 75 MG TABS TAKE 1 TABLET BY MOUTH EVERY DAY clopidogrel 18095003571 Darshana Hoffmann APRN ESCITALOPRAM OXALATE 10 MG TABS Take 1 tablet by mouth once a day escitalopram oxalate 29606943454 Darshana Hoffmann APRN LISINOPRIL 5 MG TABS Take 1 tablet by mouth once a day lisinopril 21488181511 Darshana Hoffmann APRN OXCARBAZEPINE 150 MG TABS 1 tablet by mouth twice a day oxcarbazepine 94376246440 Darshana Hoffmann APRN PANTOPRAZOLE SODIUM 40 MG TBEC Take 1 tablet by mouth once a day pantoprazole 73317912309 Darshana Hoffmann APRN TAMSULOSIN HCL 0.4 MG CAPS Take 1 capsule by mouth every night for prostate tamsulosin 19691986114 Darshana Hoffmann APRN TRAZODONE HCL 50 MG TABS Take 1 tablet by mouth every night at bedtime as needed as directed trazodone 23399644124 Darshana Hoffmann APRN ATORVASTATIN CALCIUM 40 MG TABS Take 1 tablet by mouth every night atorvastatin 14620888399 Darshana Potts APRN AMLODIPINE BESYLATE 5 MG TABS Take 1 tablet by mouth once a day amlodipine 63364066757 Darshana Potts APRN AMLODIPINE BESYLATE 5 MG TABS TAKE 1 TABLET BY MOUTH 1 TIME A DAY AMLODIPINE BESYLATE 85391815186 Pratik Monique MD Medications Administered No information [...] N Hepatitis B virus core IgM Ab [Presence] in Serum HBSAG NON-REACTIVE NON-REACTIV E N [...] in Blood ABS NEUTROPH 4388 CELLS/UL 10*3/uL 5963-9960 N Neutrophils [#/volume] in Blood MPV 11.4 [...] Plan of Care Type Date Detail Referral [employer] Referral Orthopedic Refer [facility] [place], [address] Pending order T1 CBC with diff Pending [...] Medication list docu mented in medical record [facility]-[id number] Medication Reconciliation 4004F Patient screened for tobacco use and received tobacco cessation intervention [id number] Current every day smoker 20 11/03/18 [id number] Smoking cessation education CPT-1160F Review of all medica tions by a prescribing practitioner [facility] 6399 T1 CBC with diff [facility] 52455 T1 CMP [id number] Medication Reconciliation CPT-3074F Most recent systolic blood pressure <130 mm Hg CPT-3078F Most recent diastoli c blood pressure <80 mm Hg CPT-1159F Medication list docu mented in medical record CPT-1160F Review of all medica tions by a prescribing practitioner 4004F Patient screened for tobacco use and received tobacco cessation intervention [id number] Current every day smoker 11/03/04 [id number] Smoking cessation education [id number] Giving encouragement to exercise 4004F Patient screened for tobacco use and received tobacco cessation intervention [id number] Medication Reconciliation CPT-3074F Most recent systolic blood pressure <130 mm Hg CPT-3078F Most recent diastoli c blood pressure <80 mm Hg CPT-1159F Medication list docu mented in medical record CPT-1160F Review of all medica tions by a prescribing practitioner [id number] Medication Reconciliation 4004F Patient screened for tobacco use and received tobacco cessation intervention [id number] Current every day smoker 20 08/02/29 [id number] Smoking cessation education CPT-3074F Most recent systolic [...] c blood pressure <80 mm Hg [facility] 90772 T1 G.C. Chlamydia 4004F Patient screened for tobacco use and received tobacco cessation intervention [facility]-[id number] Medication Reconciliation [facility] 6399 T1 CBC with diff [facility] 13885 T1 CMP [facility] 496 T1 HGBA1c [facility] 08365 T1 TSH reflex to free T4 06/21/03 [facility] 5363 T1 Prostate Screening 08/19 [facility] 41873 T1 Acute Hepatits Panel 2022 [facility] 7573 [...]
--- NOTE | 2024-10-29 14:53 | CT_ITS ---
PROCEDURE INFORMATION: Exam: CT Left Lower Extremity With Contrast, Foot Exam date and time: 10/29/2024 5:01 PM Age: 64 years old Clinical indication: Other: Concern for osteomyelitis, left plantar wound/ulcer TECHNIQUE: Imaging protocol: CT of the left lower extremity with intravenous contrast was performed. Exam focused on the foot. Radiation optimization: All CT scans at this facility use at least one of these dose optimization techniques: automated exposure control; mA and/or kV adjustment per patient size (includes targeted exams where dose is matched to clinical indication); or iterative reconstruction. Contrast material: ISOVUE; Contrast volume: 100 ml; Contrast route: IV; COMPARISON: CR XR FOOT LT MIN 3V 10/03/2024 5:35 PM FINDINGS: Bones/joints: There is moderate hallux valgus. No acute fracture. No significant arthritic changes. No destructive osseous changes or other findings suggestive of osteomyelitis. Soft tissues: No significant soft tissue swelling. No abnormal soft tissue fluid collections or gas evident. IMPRESSION: No findings concerning for osteomyelitis or necrotic soft tissue infection
--- NOTE | 2024-10-29 15:55 | ED_ITS ---
<Statement entered by Tia Lopez DO - 10/29/24 19:31> I was consulted by the DANNA, and we discussed the complexity of the problems being addressed. I approved the treatment and management plan for this patient's care in the emergency department, thus performing a substantive portion of the medical decision making. Given reassuring workup and exam, patient deemed to be appropriate for discharge home on oral antibiotics. Prior wound cultures reviewed. Strict return precautions given as well as instructions for close follow-up with podiatry. Tia Lopez DO Discharge Plan Disposition Patient Disposition: Home, Self-Care Condition: Good Prescriptions Prescriptions: New sulfamethoxazole-trimethoprim [Bactrim DS] 800-160 mg tablet 1 tab PO BID 14 Days Qty: 28 0RF No Action doxycycline hyclate 100 mg capsule 100 mg PO BID 7 Days Qty: 14 0RF Referrals Follow up/Referrals: Provider,Referral, [Primary Care Provider, Medical] - See instructions Krista Almodovar DPM [Staff Physician, Podiatry] - See instructions Activity Restrictions/Add. Instructions Additional Instructions/Restrictions: Please return to the emergency department with any worsening signs or symptoms, please take your medication as prescribed with food, please follow-up with the foot doctor/financial planning adviser, please continue to wrap your wound. Clinical Impressions Clinical Impression: Foot ulcer, left Instructions Patient Instructions: DI for Diabetic Foot Ulcer, Diabetes and Foot Care Print Language Print Language: Czech Discharge ED Provider: Tia Lopez General Adult HPI General Chief complaint: PAIN Stated complaint: infected toe Time Seen by Provider: 10/29/24 14:35 Mode of Arrival: EMS Source of Information: Patient Limitations: No Limitations History of Present Illness HPI narrative: 64-year-old male presents to the emergency department via EMS, for a 2-month history of left foot pain, and ongoing left foot wound, patient is somewhat of a poor historian, states he has past medical history consistent with hypertension, denies any history of type 2 diabetes, no diabetic foot ulcer diabetic neuropathy, patient was seen in the emergency department on September 2024 for similar complaint, diagnosed with left foot cellulitis, no evidence of osteomyelitis on radiographic findings and laboratory studies at that time. Was treated with outpatient antibiotics. Patient denies any chest pain shortness of breath, admits to subjective fever and chills, no recorded Tmax, denies any abdominal pain nausea vomiting constipation diarrhea, denies any urinary type symptomatology, patient has no radicular type otology, no back pain, pain is located in his left plantar aspect of his foot, where he has ongoing wound, patient is a current everyday smoker, former alcohol use disorder, states he is 2 months clean and sober, after being what sounds like admitted to alcohol rehabilitation , denies any illicit drug use. Initial triage vitals are unremarkable. Onset (ago): month(s) Related Data Previous Rx's ?Medication ?Instructions ?Recorded doxycycline hyclate 100 mg capsule 100 mg PO BID 7 day s #14 caps 10/03/24 sulfamethoxazole 800 1 tab PO BID 14 days #28 tab s 10/29/24 mg-trimethoprim 160 mg tablet (Bactrim DS) Allergies Allergy/AdvReac Type Severity Reaction Status Date / Time aspirin Allergy Unknown Verified 10/03/24 17:23 allergy reaction [facility] Disclaimer: The information contained in this section may have been updated after the patient was seen, as this information can be updated by other users. Social History Smoking Status: Current every day smoker alcohol intake: never current occupational status: retired Travel in the last 8 weeks?: None Have you lived/traveled outside US in past 30 days?: No Contact w/someone who lives/traveled outside US past 30 days?: No Exposure to someone with infectious disease in past 14 days?: No Do you have a fever (greater than 100.4 F or 38 C)?: No Have you tested positive for COVID-19?: No Exposed to someone with COVID-19 in past 14 days?: No Do you have a sore throat?: No Do you have a cough?: No Do you have any weakness?: No Do you have any diarrhea?: No Are you experiencing any unusual bleeding?: No Do you have any muscle aches/pain?: No Do you have any abdominal pain?: No Are you experiencing loss of taste or smell?: No ROS Obtained: Yes All systems reviewed & no additional complaints except as documented Physical Exam General General appearance: alert and in no apparent distress Head Head exam: atraumatic and normocephalic Eye Eye exam: Present PERRL and EOMI ENT ENT exam: Present mucous membranes moist Neck Neck exam: Present normal inspection Chest Chest inspection: Present normal inspection and symmetric chest wall rise Respiratory Respiratory exam: Present normal lung sounds bilaterally; Absent respiratory distress Cardiovascular Cardiovascular exam: Present regular rate and normal rhythm Abdominal Exam Abdominal exam: Present soft; Absent tenderness, guarding or rebound Extremities Exam Extremities exam: Present normal inspection Neurological Exam Neurological exam: Present alert and oriented X3 Psychiatric Psychiatric exam: Present normal affect Skin Skin exam: Present warm, dry, erythema and other (There is an area of what appears to be a stage I-II diabetic foot ulcer, with some active purulent discharge, and overlying erythema, no real induration or fluctuance per my exam there is pain palpation over the area, otherwise neurovascular intact.) Medical Decision Making Medical Records Medical records reviewed: Yes I reviewed the patient's medical records. Screening: Per USPSTF and CDC recommendations, given the prevalence of disease in our region, it is our hospital?s policy to screen for HIV and viral Hepatitis for all patients aged 18 and over and those with ongoing risk factors. Thai Inquiry Pt receiving controlled substance: No Thai was queried for this patient: No Vital Signs: 10/29/24 14:39 10/29/24 14:48 10/29/24 15:01 Temperature 97.9 F 97.9 F Temperature Source Oral Oral Pulse Rate 75 75 Pulse Rate [Right] 75 Respiratory Rate 15 15 Blood Pressure 149/109 H 127/76 Blood Pressure [Right Arm] 149/109 H Blood Pressure Mean Blood Pressure Mean [Right Arm] 122 Blood Pressure Source Automatic Cuff Blood Pressure Source [Right Arm] Automatic Cuff Blood Pressure Position Supine Blood Pressure Position [Right Arm] Supine 02 Sat by Pulse Oximetry 96 96 96 Oxygen Delivery Method Room Air Room Air 10/29/24 15:30 10/29/24 16:30 10/29/24 17:00 Temperature Temperature Source Pulse Rate 72 72 74 Pulse Rate [Right] Respiratory Rate Blood Pressure 122/74 116/76 113/79 Blood Pressure [Right Arm] Blood Pressure Mean 85 Blood Pressure Mean [Right Arm] Blood Pressure Source Blood Pressure Source [Right Arm] Blood Pressure Position Blood Pressure Position [Right Arm] 02 Sat by Pulse Oximetry 100 97 95 Oxygen Delivery Method 10/29/24 17:31 Temperature Temperature Source Pulse Rate 69 Pulse Rate [Right] Respiratory Rate Blood Pressure 107/90 L Blood Pressure [Right Arm] Blood Pressure Mean Blood Pressure Mean [Right Arm] Blood Pressure Source Blood Pressure Source [Right Arm] Blood Pressure Position Blood Pressure Position [Right Arm] 02 Sat by Pulse Oximetry 99 Oxygen Delivery Method Lab Data Lab results reviewed: Yes I reviewed the patient's lab results. Lab Results 10/29/24 16:00: WBC 9.3, RBC 5.29, Hgb 12.9 L, Hct 41.3 L, MCV 78.1 L, MCH 24.4 L, MCHC 31.2 L, RDW 20.2 H, Plt Count 483 H, MPV 10.6 H, Neut % (Auto) 46.1, Lymph % (Auto) 36.8, [place] % (Auto) 13.0 H, Eos % (Auto) 3.1, Baso % (Auto) 0.8, Neut # (Auto) 4.3, Lymph # (Auto) 3.4, [place] # (Auto) 1.2 H, Eos # (Auto) 0.3, Baso # (Auto) 0.1, ESR 5, Sodium 141, Potassium 4.6, Chloride 101, Carbon Dioxide 27, Anion Gap 17.6 H, BUN 11, Creatinine 0.60 L, Estimated Creat Clear 73, Estimated GFR 137, Est GFR ( Amer) 165, Glucose 110 H, Lactate 1.3, Calcium 10.1, Total Bilirubin 0.6, AST 25, ALT 11 L, Alkaline Phosphatase 79, C- Reactive Protein 4.0, Total Protein 8.6 H, Albumin 4.8, Globulin 3.8 H, Albumin/Globulin Ratio 1.3 10/29/24 16:00 10/29/24 16:00 Orders (Tests/Meds): ED MEDICATIONS Generic Name Dose Route Start Last Admin Trade Name Freq PRN Reason Stop Dose Admin Sodium Chloride 10 ml 10/29/24 17:08 10/29/24 17:13 Sodium Chloride 0.9% 10ml Syr (Rad Only) IV 11/28/24 17:07 10 ml NEEDED PRN Administration Maintain IV Site Discontinued Medications Generic Name Dose Route Start Last Admin Trade Name Freq PRN Reason Stop Dose Admin Iopamidol 100 ml 10/29/24 17:08 10/29/24 17:13 Iopamidol-370 (76%);100ml Bottle IV 10/29/24 17:09 100 ml ONCE ONE Administration Iopamidol 10 ml 10/29/24 17:08 10/29/24 17:13 Iopamidol-200 (41%);10ml Vial IV 10/29/24 17:09 Not Given ONCE ONE Sodium Chloride 50 ml 10/29/24 17:08 10/29/24 17:13 0.9 % Sodium Chloride 50 Ml Vial IV 10/29/24 17:09 50 ml ONCE ONE Administration ORDERS Category Date Time Status CT foot LT w con Stat Cat Scan 10/29/24 14:53 Completed CRP [C-Reactive Protein] Stat Lab 10/29/24 16:00 Completed Complete Blood Count Auto Diff Stat Lab 10/29/24 16:00 Completed Comprehensive Metabolic Panel Stat Lab 10/29/24 16:00 Completed ESR [Erythrocyte Sedimentation Rate] Stat Lab 10/29/24 16:00 Completed Lactic Acid Stat Lab 10/29/24 16:00 Completed Blood Culture Stat Micro 10/29/24 16:20 Received Medical Decision Narrative: 64-year-old male presents to the emergency department with left foot pain/left foot wound, differential diagnosis include but not limited to diabetic foot ulcer, cellulitis, cellulitic abscess, osteomyelitis, NSTI, gangrene infection, pressure ulcer among others. I discussed patient case with attending physician Dr. Lopez Will obtain basic laboratory studies, inflammatory markers to include CRP and ESR, lactic acid level, and CT foot on the left with contrast and obtain blood cultures. CBC is notable for MCV that is decreased 78.1, thrombocytosis of 483 CMP is notable for normal lactic acid level, otherwise unremarkable. ESR within normal limits I reviewed the patient's CT foot on the left with contrast along the corresponding radiologic report, no findings concerning for osteomyelitis or necrotic soft tissue infection. I discussed the results with the patient at bedside, patient is in agreement with current treatment plan/discharge plan, prescribe the patient Bactrim DS twice daily for 14 days, we will wrap the patient's foot wound, he was given diabetic foot wound precautions, as well as follow-up with podiatry, patient was given strict ED return precautions, patient voiced understanding agree with current treatment plan/discharge plan. Most likely patient has undiagnosed pressure ulcer versus diabetic foot ulcer stage II to stage III. Patient is otherwise hemodynamically stable, labs are nonactionable, CT imaging shows no evidence of osteomyelitis/cellulitis or soft tissue infection/abscess. Critical Care Critical Care Time Critical Care Time: No
[2024-10-29 16:14] LABS: Hematocrit 41.3 % (42.0-52.0); Hemoglobin 12.9 g/dL (14.1-18.0); Immature Granulocytes % 0.2 %; Mean Corpuscular HGB Conc 31.2 g/dL (31.8-35.4); Mean Corpuscular Hemoglobin 24.4 pg (27.0-31.2); Mean Corpuscular Volume 78.1 fl (80-94); Nucleated Red Blood Cells % 0 %; Platelet Count 483 K/mm3 (142-424); Red Blood Count 5.29 M/mm3 (4.60-6.20); Red Cell Distribution Width-SD 54.9 fL; White Blood Count 9.3 K/mm3 (4.8-10.8)
[2024-10-29 16:33] LABS: Alanine Aminotransferase 11 U/L (12-78); Albumin Level 4.8 g/dl (3.5-5.0); Albumin/Globulin Ratio 1.3 (1.1-1.8); Alkaline Phosphatase 79 U/L (38-126); Anion Gap 17.6 mEq/L (5-15); Aspartate Amino Transferase 25 U/L (17-59); Bilirubin,Total 0.6 mg/dl (0.2-1.3); Blood Urea Nitrogen 11 mg/dl (9-20); Calcium 10.1 mg/dl (8.4-10.2); Carbon Dioxide 27 mmol/L (22.0-30.0); Chloride 101 mmol/L (98-107); Creatinine Clearance Estimated 73 mL/min (50-200); Creatinine,Serum 0.60 mg/dl (0.66-1.25); Estimated Glomerular Filt Rate 137 ml/min (>60); GFR (African American) 165 ML/MIN (>60); Globulin 3.8 g/dL (1.3-3.2); Glucose 110 mg/dl (74-100); Potassium 4.6 mmoL/L (3.5-5.1); Sodium 141 mmol/L (136-145); Total Protein,Serum 8.6 g/dl (6.3-8.2)
[2024-10-29 16:38] LABS: C-Reactive Protein 4.0 mg/L (0-4)
--- NOTE | 2024-10-29 17:00 | PC.NURSE ---
letitia from [facility] called for update on pt. states that phone at facility is not charging, call her with update if pt needs ride back to facility. [phone]
[2024-10-29] MEDS: SODIUM CHLORIDE 0.9% 10ML SYR (RAD ONLY) 10 ML IV (17:13)
[2024-10-29] MEDS: 0.9 % SODIUM CHLORIDE 50 ML VIAL IV (17:13)
[2024-10-29] MEDS: IOPAMIDOL-370 (76%);100ML BOTTLE 100 ML IV (17:13)
--- NOTE | 2024-10-29 18:57 | PC.NURSE ---
DANIEL NOTIFIED PT IS READY FOR DISCHARGE
== END 2024-10-29 19:21 | disposition home or self-care (01) ==
PROVIDERS: Physician Assistant; Emergency Provider Emergency Medicine
DX: L97.529 Non-pressure chronic ulcer of other part of left foot with unspecified severity (principal); F17.210 Nicotine dependence, cigarettes, uncomplicated
CPT/HCPCS: 73701; 80053; 83605; 85025; 85651; 86140; 87040; 99284; Q9967

== ENCOUNTER 2024-12-05 14:16 | Outpatient (CLI) | payer MEDICAID, SELFPAY ==
--- OUTSIDE RECORDS SUMMARY | 2024-12-05 14:17 | XMS_ITS | Clinical Summary ---
Author Organization [employer] [facility] are -Transitions Address [address] [place] [phone] Phone Care Team Providers Care Veterans Contact Representative Name Role Phone Darshana Hoffmann APRN Primary [...] mass index [BMI] 25.0-25.9, adult Leg cramps 128928479 (SNOMED CT) 05/05 Active 05/05 Darshana Hoffmann APRN Cramp in lower limb Leg pain, bilateral 17024170 (SNOMED CT) 04/21 Active 04/21 Akilah Elder HHAS Pain in lower limb Body mass index (BMI) 25.0-25.9; adult Z68.25 (ICD-10-CM) 04/21 Removed 04/21 Akilah Elder HHAS Body mass index [BMI] 25.0-25.9, adult Body mass index (BMI) 21.0-21.9; adult Z68.21 (ICD-10-CM) Correctio n Akilah Elder APRN Body mass index [BMI] 21.0-21.9, adult Sore throat (acute) 488895025 (SNOMED CT) 04/21 Inactive 04/21 Akilah Mejíazenobia HHAS Pain in throat Runny nose 02780570 (SNOMED CT) 04/21 Inactive 04/21 Akilah Elder HHAS Rhinitis Body mass index (BMI) 21.0-21.9; adult Z68.21 (ICD-10-CM) Removed Junejennifer Salazar HHAS Body mass index [BMI] 21.0-21.9, adult Body mass index (BMI) 20.0-20.9; adult Z68.20 (ICD-10-CM) Correctio n Junejennifer Ayalamary anne HHAS Body mass index [BMI] 20.0-20.9, adult Neck pain, chronic 16828501026 07 (SNOMED CT) Active Deepti Ayalamary anne HHAS Chronic neck pain Body mass index (BMI) [...] or less, adult Screening for diabetes mellitus 522994791 (SNOMED CT) 08/19 Inactive 08/19 Darshana Potts APRN Diabetes mellitus screening Screening for prostate cancer 106342695 (SNOMED CT) 08/19 Inactive 08/19 Darshana Potts HHAS Screening for malignant neoplasm of prostate Hx of CVA 898848431 (SNOMED CT) 08/19 Active 08/19 Darshana Potts HHAS History of cerebrovascula r accident RIGHT PONTINE STROKE Tobacco User 792435084 (SNOMED CT) 08/19 Active 08/19 Darshana Potts HHAS Tobacco user Hx of alcohol abuse 651980448 (SNOMED CT) 08/19 Active 08/19 Darshana Potts APRN History of alcohol abuse Hx of iron deficiency anemia 947257694 (SNOMED CT) 08/19 Active 08/19 Darshana Potts APRN H/O: anemia - iron deficient Screening for colon cancer 944720846 (SNOMED CT) 08/19 Inactive 08/19 Darshana Potts APRN Screening for malignant neoplasm of colon CLOSED FRACTURE OF NAVICULAR BONE OF WRIST S62.009 (ICD-10-CM) 11/29 Active 11/29 Pratik Monique MD Unspecified fracture of navicular [scaphoid] bone of unspecified wrist FRACTURE, WRIST, RIGHT 59645260 (SNOMED CT) 11/23 Active 11/23 Pratik Monique MD Fracture of carpal bone HYPERTENSIO N 63577740 (SNOMED CT) 11/22 Active 11/22 Pratik Monique MD Hypertensive disorder ALCOHOL ABUSE 05213417 (SNOMED CT) 11/22 Active 11/22 Pratik Monique [...] TABLETS IN 24 HOURS. FOR DIARRHEA loperamide 23974917344 Darshana Hoffmann APRN LOPERAMIDE HCL 2 MG TABS TAKE 2 TABLETS BY MOUTH ONCE THEN TAKE 1 TABLET AFTER EACH LOOSE BOWEL MOVEMENT. MAX 6 TABLETS IN 24 HOURS. as neededFOR DIARRHEA loperamide 73778852484 Darshana Hoffmann APRN iron 325 mg (65 mg iron) tablet Take 1 tablet by mouth once a day ferrous sulfate 43460599085 Darshana Hoffmann APRN LORATADINE 10 MG TABS as needed as directed TAKE 1 TABLET BY MOUTH EVERY DAY for runny nose and allergies loratadine 46943148637 Akilah Elder APRN FLUTICASONE PROPIONATE 50 MCG/ACT SUSP Lonepine 2 spray into both nostrils once a day as needed as directed FOR NASAL CONGESTION fluticasone propionate 16959545379 Akilah Elder APRN COUGH DROPS 5 MG LOZG Hold 1 lozenge in mouth four times a day as needed for cough/sore throat menthol 37974786609 Akilah Elder APRN NICODERM CQ 14 MG/24HR PT24 Apply 1 patch to skin once a day remove and replace patch daily for 6 weeks nicotine 01926679292 Deepti Salazar APRN ACETAMINOPHEN 500 MG TABS Take 1 tablet by mouth every six to eight hours as needed for pain for neck pain acetaminophen 32432815851 Deepti Salazar APRN ATORVASTATIN CALCIUM 40 MG TABS Take 1 tablet by mouth every night atorvastatin 28663300289 Darshana Hoffmann APRN CLOPIDOGREL BISULFATE 75 MG TABS TAKE 1 TABLET BY MOUTH EVERY DAY clopidogrel 66875563005 Darshana Hoffmann APRN ESCITALOPRAM OXALATE 10 MG TABS Take 1 tablet by mouth once a day escitalopram oxalate 11923868716 Darshana Hoffmann APRN LISINOPRIL 5 MG TABS Take 1 tablet by mouth once a day lisinopril 87498642491 Darshana Hoffmann APRN OXCARBAZEPINE 150 MG TABS 1 tablet by mouth twice a day oxcarbazepine 28640721368 Darshana Hoffmann APRN PANTOPRAZOLE SODIUM 40 MG TBEC Take 1 tablet by mouth once a day pantoprazole 55535322432 Darshana Hoffmann APRN TAMSULOSIN HCL 0.4 MG CAPS Take 1 capsule by mouth every night for prostate tamsulosin 08670802699 Darshana Hoffmann APRN TRAZODONE HCL 50 MG TABS Take 1 tablet by mouth every night at bedtime as needed as directed trazodone 59501310449 Darshana Hoffmann APRN ATORVASTATIN CALCIUM 40 MG TABS Take 1 tablet by mouth every night atorvastatin 80400074360 Darshana Potts APRN AMLODIPINE BESYLATE 5 MG TABS Take 1 tablet by mouth once a day amlodipine 16766700086 Darshana Potts APRN AMLODIPINE BESYLATE 5 MG TABS TAKE 1 TABLET BY MOUTH 1 TIME A DAY AMLODIPINE BESYLATE 14866458163 Pratik Monique MD Medications Administered No information [...] NON-REACTIV E N Hepatitis B virus core IgG+IgM Ab [Presence] in Serum or Plasma by Immunoassay HBSAG NON-REACTIVE NON-REACTIV E N Hepatitis B [...] in Blood ABS NEUTROPH 4388 CELLS/UL 10*3/uL 9010-5116 N Neutrophils [#/volume] in Blood MPV 11.4 [...] Plan of Care Type Date Detail Referral [facility] [place], [address] Pending order T1 CBC with diff Pending [...] docu mented in medical record [facility]-[id number] Medication Reconciliation 4004F Patient screened for tobacco use and received tobacco cessation intervention [id number] Current every day smoker 20 11/03/18 [id number] Smoking cessation education CPT-1160F Review of all medica tions by a prescribing practitioner [facility] 6399 T1 CBC with diff [facility] 91211 T1 CMP [id number] Medication Reconciliation CPT-3074F Most recent systolic blood pressure <130 mm Hg CPT-3078F Most recent diastoli c blood pressure <80 mm Hg CPT-1159F Medication list docu mented in medical record CPT-1160F Review of all medica tions by a prescribing practitioner 4004F Patient screened for tobacco use and received tobacco cessation intervention [id number] Current every day smoker 20 11/03/04 [id number] Smoking cessation education [id number] Giving encouragement to exercise 4004F Patient screened for tobacco use and received tobacco cessation intervention [id number] Medication Reconciliation CPT-3074F Most recent systolic blood pressure <130 mm Hg CPT-3078F Most recent diastoli c blood pressure <80 mm Hg CPT-1159F Medication list docu mented in medical record CPT-1160F Review of all medica tions by a prescribing practitioner [id number] Medication Reconciliation 4004F Patient screened for tobacco use and received tobacco cessation intervention [id number] Current every day smoker 20 08/02/29 [id number] Smoking cessation education CPT-3074F Most recent systolic [...] c blood pressure <80 mm Hg [facility] 10608 T1 G.C. Chlamydia 4004F Patient screened for tobacco use and received tobacco cessation intervention [facility]-[id number] Medication Reconciliation [facility] 6399 T1 CBC with diff [facility] 07527 T1 CMP [facility] 496 T1 HGBA1c [facility] 50254 T1 TSH reflex to free T4 06/21/03 [facility] 5363 T1 Prostate Screening 08/19 [facility] 33500 T1 Acute Hepatits Panel 2022 [facility] 7573 [...]
--- NOTE | 2024-12-05 14:18 | XR_ITS ---
FINAL REPORT CLINICAL HISTORY: Evaluation of left foot cellulitis COMPARISON: 10/03/2024 FINDINGS: LEFT FOOT Three views of the left foot demonstrate no acute fracture or dislocation. A moderate hallux valgus deformity is present with lateral subluxation of the first proximal phalanx. There are mild hypertrophic changes of the first MTP joint. The soft tissues are unremarkable. IMPRESSION: Degenerative changes with no acute bony abnormality. Reviewed, Interpreted and Dictated by Saul Prince MD Transcribed by Yuliana Patricia Authenticated and [facility]
--- OUTSIDE RECORDS SUMMARY | 2024-12-05 14:18 | XMS_ITS | Clinical Summary ---
Author Organization [facility] Address [facility] [place] [address] Phone Care Team Providers Care Route Jumper Name Role Phone Brandy Martell Unavailable [phone] Conditions or Problems No information available. Medications No information available. Medications Administered No information available. Allergies, Adverse Reactions, Alerts No information available. Results No information available. Plan of Care No information available. Procedures No information available. Vital Signs No information available. Immunizations No information available. Advance Directives No information available.
[2024-12-05 16:14] LABS: Hematocrit 42.0 % (42.0-52.0); Hemoglobin 13.0 g/dL (14.1-18.0); Immature Granulocytes % 0.3 %; Mean Corpuscular HGB Conc 31.0 g/dL (31.8-35.4); Mean Corpuscular Hemoglobin 24.4 pg (27.0-31.2); Mean Corpuscular Volume 78.8 fl (80-94); Nucleated Red Blood Cells % 0 %; Platelet Count 451 K/mm3 (142-424); Red Blood Count 5.33 M/mm3 (4.60-6.20); Red Cell Distribution Width-SD 57.8 fL; White Blood Count 11.6 K/mm3 (4.8-10.8)
[2024-12-05 16:32] LABS: Albumin Level 4.8 g/dl (3.5-5.0); Chloride 107 mmol/L (98-107); Potassium 4.7 mmoL/L (3.5-5.1); Sodium 145 mmol/L (136-145)
[2024-12-05 16:34] LABS: Blood Urea Nitrogen 9 mg/dl (9-20); Creatinine,Serum 0.70 mg/dl (0.66-1.25); Estimated Glomerular Filt Rate 114 ml/min (>60); GFR (African American) 138 ML/MIN (>60)
[2024-12-05 16:35] LABS: Alanine Aminotransferase 17 U/L (12-78); Albumin/Globulin Ratio 1.4 (1.1-1.8); Alkaline Phosphatase 88 U/L (38-126); Anion Gap 16.7 mEq/L (5-15); Aspartate Amino Transferase 25 U/L (17-59); Bilirubin,Total 1.0 mg/dl (0.2-1.3); Calcium 10.1 mg/dl (8.4-10.2); Carbon Dioxide 26 mmol/L (22.0-30.0); Globulin 3.4 g/dL (1.3-3.2); Glucose 65 mg/dl (74-100); Total Protein,Serum 8.2 g/dl (6.3-8.2)
[2024-12-05 16:40] LABS: C-Reactive Protein 1.6 mg/L (0-4)
== END 2024-12-05 23:59 | disposition home or self-care (01) ==
LOC: LAB 16:57
PROVIDERS: Visit Provider Podiatrist
DX: L03.116 Cellulitis of left lower limb (principal); L97.529 Non-pressure chronic ulcer of other part of left foot with unspecified severity
CPT/HCPCS: 36415; 73630; 80053; 85025; 85651; 86140; 87070; 87077; 87205

== ENCOUNTER 2024-12-14 09:24 | Outpatient (CLI) | payer MEDICAID, SELFPAY ==
--- OUTSIDE RECORDS SUMMARY | 2024-12-14 09:26 | XMS_ITS | Clinical Summary ---
Author Organization [facility] Address [facility] [place] [address] Phone Care Team Providers Care Change Analyst Name Role Phone Brandy Martell Unavailable [phone] Conditions or Problems No information available. Medications No information available. Medications Administered No information available. Allergies, Adverse Reactions, Alerts No information available. Results No information available. Plan of Care No information available. Procedures No information available. Vital Signs No information available. Immunizations No information available. Advance Directives No information available.
--- OUTSIDE RECORDS SUMMARY | 2024-12-14 09:26 | XMS_ITS | Clinical Summary ---
Author Organization [facility] [facility] are -Transitions Address [address] [place] [phone] Phone Care Team Providers Care Tractor Technician Name Role Phone Darshana Hoffmann APRN Primary [...] mass index [BMI] 25.0-25.9, adult Leg cramps 684951040 (SNOMED CT) 05/05 Active 05/05 Darshana Hoffmann APRN Cramp in lower limb Leg pain, bilateral 28209107 (SNOMED CT) 04/21 Active 04/21 Akilah Elder OFFICE AUTOMATION CLERK Pain in lower limb Body mass index (BMI) 25.0-25.9; adult Z68.25 (ICD-10-CM) 04/21 Removed 04/21 Akilah Elder OFFICE AUTOMATION CLERK Body mass index [BMI] 25.0-25.9, adult Body mass index (BMI) 21.0-21.9; adult Z68.21 (ICD-10-CM) Correctio n Akilah Elder APRN Body mass index [BMI] 21.0-21.9, adult Sore throat (acute) 671912363 (SNOMED CT) 04/21 Inactive 04/21 Akilah Mejíazenobia OFFICE AUTOMATION CLERK Pain in throat Runny nose 77469969 (SNOMED CT) 04/21 Inactive 04/21 Akilah Elder OFFICE AUTOMATION CLERK Rhinitis Body mass index (BMI) 21.0-21.9; adult Z68.21 (ICD-10-CM) Removed Junejennifer Salazar OFFICE AUTOMATION CLERK Body mass index [BMI] 21.0-21.9, adult Body mass index (BMI) 20.0-20.9; adult Z68.20 (ICD-10-CM) Correctio n Junejennifer Ayalamary anne OFFICE AUTOMATION CLERK Body mass index [BMI] 20.0-20.9, adult Neck pain, chronic 91037293439 07 (SNOMED CT) Active Deepti Ayalamary anne OFFICE AUTOMATION CLERK Chronic neck pain Body mass index (BMI) [...] or less, adult Screening for diabetes mellitus 923250460 (SNOMED CT) 08/19 Inactive 08/19 Darshana Potts APRN Diabetes mellitus screening Screening for prostate cancer 786867908 (SNOMED CT) 08/19 Inactive 08/19 Darshana Potts OFFICE AUTOMATION CLERK Screening for malignant neoplasm of prostate Hx of CVA 214770996 (SNOMED CT) 08/19 Active 08/19 Darshana Potts OFFICE AUTOMATION CLERK History of cerebrovascula r accident RIGHT PONTINE STROKE Tobacco User 515432017 (SNOMED CT) 08/19 Active 08/19 Darshana Potts OFFICE AUTOMATION CLERK Tobacco user Hx of alcohol abuse 118463946 (SNOMED CT) 08/19 Active 08/19 Darshana Potts APRN History of alcohol abuse Hx of iron deficiency anemia 591609016 (SNOMED CT) 08/19 Active 08/19 Darshana Potts APRN H/O: anemia - iron deficient Screening for colon cancer 017288063 (SNOMED CT) 08/19 Inactive 08/19 Darshana Potts APRN Screening for malignant neoplasm of colon CLOSED FRACTURE OF NAVICULAR BONE OF WRIST S62.009 (ICD-10-CM) 11/29 Active 11/29 Pratik Mnoique MD Unspecified fracture of navicular [scaphoid] bone of unspecified wrist FRACTURE, WRIST, RIGHT 15119464 (SNOMED CT) 11/23 Active 11/23 Pratik Monique MD Fracture of carpal bone HYPERTENSIO N 20917566 (SNOMED CT) 11/22 Active 11/22 Pratik Monique MD Hypertensive disorder ALCOHOL ABUSE 72606899 (SNOMED CT) 11/22 Active 11/22 Pratik Monique [...] TABLETS IN 24 HOURS. FOR DIARRHEA loperamide 77059433381 Darshana Hoffmann APRN LOPERAMIDE HCL 2 MG TABS TAKE 2 TABLETS BY MOUTH ONCE THEN TAKE 1 TABLET AFTER EACH LOOSE BOWEL MOVEMENT. MAX 6 TABLETS IN 24 HOURS. as neededFOR DIARRHEA loperamide 27059794437 Darshana Hoffmann APRN iron 325 mg (65 mg iron) tablet Take 1 tablet by mouth once a day ferrous sulfate 30183346606 Darshana Hoffmann APRN LORATADINE 10 MG TABS as needed as directed TAKE 1 TABLET BY MOUTH EVERY DAY for runny nose and allergies loratadine 31105120354 Akilah Elder APRN FLUTICASONE PROPIONATE 50 MCG/ACT SUSP Pioneer 2 spray into both nostrils once a day as needed as directed FOR NASAL CONGESTION fluticasone propionate 26088382875 Akilah Elder APRN COUGH DROPS 5 MG LOZG Hold 1 lozenge in mouth four times a day as needed for cough/sore throat menthol 97843882323 Akilah Elder APRN NICODERM CQ 14 MG/24HR PT24 Apply 1 patch to skin once a day remove and replace patch daily for 6 weeks nicotine 81106440057 Deepti Salazar APRN ACETAMINOPHEN 500 MG TABS Take 1 tablet by mouth every six to eight hours as needed for pain for neck pain acetaminophen 55688922729 Deepti Salazar APRN ATORVASTATIN CALCIUM 40 MG TABS Take 1 tablet by mouth every night atorvastatin 28438144952 Darshana Hoffmann APRN CLOPIDOGREL BISULFATE 75 MG TABS TAKE 1 TABLET BY MOUTH EVERY DAY clopidogrel 46702679552 Darshana Hoffmann APRN ESCITALOPRAM OXALATE 10 MG TABS Take 1 tablet by mouth once a day escitalopram oxalate 95386921213 Darshana Hoffmann APRN LISINOPRIL 5 MG TABS Take 1 tablet by mouth once a day lisinopril 40903222375 Darshana Hoffmann APRN OXCARBAZEPINE 150 MG TABS 1 tablet by mouth twice a day oxcarbazepine 52013832871 Darshana Hoffmann APRN PANTOPRAZOLE SODIUM 40 MG TBEC Take 1 tablet by mouth once a day pantoprazole 76499923006 Darshana Hoffmann APRN TAMSULOSIN HCL 0.4 MG CAPS Take 1 capsule by mouth every night for prostate tamsulosin 99197867498 Darshana Hoffmann APRN TRAZODONE HCL 50 MG TABS Take 1 tablet by mouth every night at bedtime as needed as directed trazodone 08273450251 Darshana Hoffmann APRN ATORVASTATIN CALCIUM 40 MG TABS Take 1 tablet by mouth every night atorvastatin 89752590233 Darshana Potts APRN AMLODIPINE BESYLATE 5 MG TABS Take 1 tablet by mouth once a day amlodipine 32718692402 Darshana Potts APRN AMLODIPINE BESYLATE 5 MG TABS TAKE 1 TABLET BY MOUTH 1 TIME A DAY AMLODIPINE BESYLATE 57331317214 Pratik Monique MD Medications Administered No information [...] in Blood ABS NEUTROPH 4388 CELLS/UL 10*3/uL 8601-6184 N Neutrophils [#/volume] in Blood MPV 11.4 [...] Plan of Care Type Date Detail Referral [facility] [place], [address] Pending order T1 CBC with diff Pending [...] Medication list docu mented in medical record [facility]-[id number] Medication Reconciliation 4004F Patient screened for tobacco use and received tobacco cessation intervention [id number] Current every day smoker 20 11/03/18 [id number] Smoking cessation education CPT-1160F Review of all medica tions by a prescribing practitioner [facility] 6399 T1 CBC with diff [facility] 90461 T1 CMP [id number] Medication Reconciliation CPT-3074F Most recent systolic blood pressure <130 mm Hg CPT-3078F Most recent diastoli c blood pressure <80 mm Hg CPT-1159F Medication list docu mented in medical record CPT-1160F Review of all medica tions by a prescribing practitioner 4004F Patient screened for tobacco use and received tobacco cessation intervention [id number] Current every day smoker 20 11/03/04 [id number] Smoking cessation education [id number] Giving encouragement to exercise 4004F Patient screened for tobacco use and received tobacco cessation intervention [id number] Medication Reconciliation CPT-3074F Most recent systolic blood pressure <130 mm Hg CPT-3078F Most recent diastoli c blood pressure <80 mm Hg CPT-1159F Medication list docu mented in medical record CPT-1160F Review of all medica tions by a prescribing practitioner SCT-[id number] Medication Reconciliation 4004F Patient screened for tobacco use and received tobacco cessation intervention [id number] Current every day smoker 20 08/02/29 [id number] Smoking cessation education CPT-3074F Most recent systolic [...] c blood pressure <80 mm Hg [facility] 81351 T1 G.C. Chlamydia 4004F Patient screened for tobacco use and received tobacco cessation intervention [facility]-[id number] Medication Reconciliation [facility] 6399 T1 CBC with diff [facility] 30530 T1 CMP [facility] 496 T1 HGBA1c [facility] 89990 T1 TSH reflex to free T4 06/21/03 [facility] 5363 T1 Prostate Screening 08/19 [facility] 67110 T1 Acute Hepatits Panel 2022 [facility] 7573 [...]
--- NOTE | 2024-12-14 09:30 | US_ITS ---
FINAL REPORT CLINICAL HISTORY: Symptoms and Signs involving the circulatory system. Current smoker, hx of peripheral stents, CAD, HTN. Patient currently has a bunion on left foot that has been scraped and cleaned with bandage in place. COMPARISON: None FINDINGS: ANKLE-BRACHIAL PRESSURE INDICES Pressure indices are as follows: RIGHT LOWER EXTREMITY: Ankle-brachial pressure index: 0.92 Comments: Lower limits of normal LEFT LOWER EXTREMITY: Ankle-brachial pressure index: 0.53 Comments: Moderately depressed IMPRESSION: Moderate significant obstructive peripheral vascular disease in the left lower extremity. No evidence of significant obstructive peripheral vascular disease in the right lower extremity. Reviewed, Interpreted and Dictated by Saul Prince MD Transcribed by Yuliana Patricia Authenticated and [facility]
== END 2024-12-14 23:59 | disposition home or self-care (01) ==
LOC: RT 09:25
PROVIDERS: Visit Provider Podiatrist
DX: I70.202 Unspecified atherosclerosis of native arteries of extremities, left leg (principal)
CPT/HCPCS: 93923

== ENCOUNTER 2025-01-01 10:30 | Outpatient (CLI) | payer MEDICAID, SELFPAY ==
--- OUTSIDE RECORDS SUMMARY | 2025-01-02 12:45 | XMS_ITS | Clinical Summary ---
Author Organization [facility] are -Transitions Address [address] [place] [phone] Phone Care Team Providers Care Mental Health Tech Name Role Phone Darshana Hoffmann APRN Primary Care Physician + Conditions or Problems Problem Name Problem Code Onset Date Status Entry Date Provider Comment Standard Description Annotate Body mass index (BMI) 21.0-21.9; adult Z68.21 (ICD-10-CM) 05/05 Active 05/05 Darshana Hoffmann APRN Body mass index [BMI] 21.0-21.9, adult Body mass index (BMI) 25.0-25.9; adult Z68.25 (ICD-10-CM) 04/21 Correctio n 04/21 Darshana Hoffmnan APRN Body mass index [BMI] 25.0-25.9, adult Leg cramps 041693323 (SNOMED CT) 05/05 Active 05/05 Darshana Hoffmann APRN Cramp in lower limb Leg pain, bilateral 24940130 (SNOMED CT) 04/21 Active 04/21 Akilah Elder WAD LUBRICATOR Pain in lower limb Body mass index (BMI) 25.0-25.9; adult Z68.25 (ICD-10-CM) 04/21 Removed 04/21 Akilah Elder WAD LUBRICATOR Body mass index [BMI] 25.0-25.9, adult Body mass index (BMI) 21.0-21.9; adult Z68.21 (ICD-10-CM) Correctio n Akilah Elder APRN Body mass index [BMI] 21.0-21.9, adult Sore throat (acute) 296364646 (SNOMED CT) 04/21 Inactive 04/21 Akilah Mejíazenobia WAD LUBRICATOR Pain in throat Runny nose 17460694 (SNOMED CT) 04/21 Inactive 04/21 Akilah Elder WAD LUBRICATOR Rhinitis Body mass index (BMI) 21.0-21.9; adult Z68.21 (ICD-10-CM) Removed Junejennifer Salazar WAD LUBRICATOR Body mass index [BMI] 21.0-21.9, adult Body mass index (BMI) 20.0-20.9; adult Z68.20 (ICD-10-CM) Correctio n Junejennifer Ayalamary anne WAD LUBRICATOR Body mass index [BMI] 20.0-20.9, adult Neck pain, chronic 27766609960 07 (SNOMED CT) Active Deepti Ayalamayr anne WAD LUBRICATOR Chronic neck pain Body mass index (BMI) [...] or less, adult Screening for diabetes mellitus 182440251 (SNOMED CT) 08/19 Inactive 08/19 Drashana Potts APRN Diabetes mellitus screening Screening for prostate cancer 468148780 (SNOMED CT) 08/19 Inactive 08/19 Darshana Potts WAD LUBRICATOR Screening for malignant neoplasm of prostate Hx of CVA 909713807 (SNOMED CT) 08/19 Active 08/19 Darshana Potts WAD LUBRICATOR History of cerebrovascula r accident RIGHT PONTINE STROKE Tobacco User 057717892 (SNOMED CT) 08/19 Active 08/19 Darshana Potts WAD LUBRICATOR Tobacco user Hx of alcohol abuse 092881513 (SNOMED CT) 08/19 Active 08/19 Darshana Potts APRN History of alcohol abuse Hx of iron deficiency anemia 229308040 (SNOMED CT) 08/19 Active 08/19 Darshana Potts APRN H/O: anemia - iron deficient Screening for colon cancer 951346804 (SNOMED CT) 08/19 Inactive 08/19 Darshana Potts APRN Screening for malignant neoplasm of colon CLOSED FRACTURE OF NAVICULAR BONE OF WRIST S62.009 (ICD-10-CM) 11/29 Active 11/29 Pratik Monique MD Unspecified fracture of navicular [scaphoid] bone of unspecified wrist FRACTURE, WRIST, RIGHT 66434643 (SNOMED CT) 11/23 Active 11/23 Pratik Monique MD Fracture of carpal bone HYPERTENSIO N 32071287 (SNOMED CT) 11/22 Active 11/22 Pratik Monique MD Hypertensive disorder ALCOHOL ABUSE 61965670 (SNOMED CT) 11/22 Active 11/22 Pratik Monique [...] TABLETS IN 24 HOURS. FOR DIARRHEA loperamide 58352608795 Darshana Hoffmann APRN LOPERAMIDE HCL 2 MG TABS TAKE 2 TABLETS BY MOUTH ONCE THEN TAKE 1 TABLET AFTER EACH LOOSE BOWEL MOVEMENT. MAX 6 TABLETS IN 24 HOURS. as neededFOR DIARRHEA loperamide 09989094732 Darshana Hoffmann APRN iron 325 mg (65 mg iron) tablet Take 1 tablet by mouth once a day ferrous sulfate 02159484028 Darshana Hoffmann APRN LORATADINE 10 MG TABS as needed as directed TAKE 1 TABLET BY MOUTH EVERY DAY for runny nose and allergies loratadine 65020819243 Akilah Elder APRN FLUTICASONE PROPIONATE 50 MCG/ACT SUSP [place] 2 spray into both nostrils once a day as needed as directed FOR NASAL CONGESTION fluticasone propionate 45719306558 Akilah Elder APRN COUGH DROPS 5 MG LOZG Hold 1 lozenge in mouth four times a day as needed for cough/sore throat menthol 66937504986 Akilah Elder APRN NICODERM CQ 14 MG/24HR PT24 Apply 1 patch to skin once a day remove and replace patch daily for 6 weeks nicotine 49038827534 Deepti Salazar APRN ACETAMINOPHEN 500 MG TABS Take 1 tablet by mouth every six to eight hours as needed for pain for neck pain acetaminophen 41715786900 Deepti Salazar APRN ATORVASTATIN CALCIUM 40 MG TABS Take 1 tablet by mouth every night atorvastatin 15513825841 Darshana Hoffmann APRN CLOPIDOGREL BISULFATE 75 MG TABS TAKE 1 TABLET BY MOUTH EVERY DAY clopidogrel 44272187162 Darshana Hoffmann APRN ESCITALOPRAM OXALATE 10 MG TABS Take 1 tablet by mouth once a day escitalopram oxalate 17158485071 Darshana Hoffmann APRN LISINOPRIL 5 MG TABS Take 1 tablet by mouth once a day lisinopril 74853510936 Darshana Hoffmann APRN OXCARBAZEPINE 150 MG TABS 1 tablet by mouth twice a day oxcarbazepine 69827156495 Darshana Hoffmann APRN PANTOPRAZOLE SODIUM 40 MG TBEC Take 1 tablet by mouth once a day pantoprazole 38464966339 Darshana Hoffmann APRN TAMSULOSIN HCL 0.4 MG CAPS Take 1 capsule by mouth every night for prostate tamsulosin 43087742842 Darshana Hoffmann APRN TRAZODONE HCL 50 MG TABS Take 1 tablet by mouth every night at bedtime as needed as directed trazodone 11601230432 Darshana Hoffmann APRN ATORVASTATIN CALCIUM 40 MG TABS Take 1 tablet by mouth every night atorvastatin 51049353621 Darshana Potts APRN AMLODIPINE BESYLATE 5 MG TABS Take 1 tablet by mouth once a day amlodipine 79546222574 Darshana Potts APRN AMLODIPINE BESYLATE 5 MG TABS TAKE 1 TABLET BY MOUTH 1 TIME A DAY AMLODIPINE BESYLATE 91183033316 Pratik Monique MD Medications Administered No information [...] in Blood ABS NEUTROPH 4388 CELLS/UL 10*3/uL 8461-7118 N Neutrophils [#/volume] in Blood MPV 11.4 [...] Plan of Care Type Date Detail Referral [employer] Referral Orthopedic Refer [facility] [place], [address] Pending order T1 CBC with diff Pending [...] Medication list docu mented in medical record [facility]-[id number] Medication Reconciliation 4004F Patient screened for tobacco use and received tobacco cessation intervention [id number] Current every day smoker 20 11/03/18 [id number] Smoking cessation education CPT-1160F Review of all medica tions by a prescribing practitioner [facility] 6399 T1 CBC with diff [facility] 12768 T1 CMP SCT-[id number] Medication Reconciliation CPT-3074F Most recent systolic blood pressure <130 mm Hg CPT-3078F Most recent diastoli c blood pressure <80 mm Hg CPT-1159F Medication list docu mented in medical record CPT-1160F Review of all medica tions by a prescribing practitioner 4004F Patient screened for tobacco use and received tobacco cessation intervention [id number] Current every day smoker 11/03/04 [id number] Smoking cessation education [id number] Giving encouragement to exercise 4004F Patient screened for tobacco use and received tobacco cessation intervention SCT-[id number] Medication Reconciliation CPT-3074F Most recent systolic blood pressure <130 mm Hg CPT-3078F Most recent diastoli c blood pressure <80 mm Hg CPT-1159F Medication list docu mented in medical record CPT-1160F Review of all medica tions by a prescribing practitioner SCT-[id number] Medication Reconciliation 4004F Patient screened for tobacco use and received tobacco cessation intervention [id number] Current every day smoker 20 08/02/29 [id number] Smoking cessation education CPT-3074F Most recent systolic [...] c blood pressure <80 mm Hg [facility] 39841 T1 G.C. Chlamydia 4004F Patient screened for tobacco use and received tobacco cessation intervention [facility]-[id number] Medication Reconciliation [facility] 6399 T1 CBC with diff [facility] 41619 T1 CMP [facility] 496 T1 HGBA1c [facility] 95283 T1 TSH reflex to free T4 06/21/03 [facility] 5363 T1 Prostate Screening 08/19 [facility] 19464 T1 Acute Hepatits Panel 2022 [facility] 7573 [...]
--- OUTSIDE RECORDS SUMMARY | 2025-01-02 12:46 | XMS_ITS | Clinical Summary ---
Author Organization [facility] Address [facility] [place] [address] Phone Care Team Providers Care Product Steward Name Role Phone Brandy Martell Unavailable [phone] Conditions or Problems No information available. Medications No information available. Medications Administered No information available. Allergies, Adverse Reactions, Alerts No information available. Results No information available. Plan of Care No information available. Procedures No information available. Vital Signs No information available. Immunizations No information available. Advance Directives No information available.
== END 2025-01-01 23:59 | disposition home or self-care (01) ==
LOC: LAB.DROPOF 01-02 12:44
PROVIDERS: PCP Podiatrist; Visit Provider Podiatrist
DX: L97.529 Non-pressure chronic ulcer of other part of left foot with unspecified severity (principal)
CPT/HCPCS: 87070; 87077; 87186; 87205

== ENCOUNTER 2025-01-03 11:02 | Outpatient (CLI) | payer MEDICAID, SELFPAY ==
--- NOTE | 2025-01-03 | CA_ITS ---
APPROVED REPORT Exam: Pharmacologic Technologist: Farzana Ramirez Ht: 5 ft 9 in Wt: 142 lbs BSA: 1.79 m2 HR: 65 bpm BP: 131/76 mmHg Stress Test Details Test: Lexiscan Reason for pharmacologic stress test: physical limitation. HR Resting HR: 65 bpm Max Heart Rate (APMHR): 158.744672 bpm Max HR Achieved: 86 bpm Target HR (85% APMHR): 134.672778 bpm % of APMHR: 54.43 Recovery HR: 73 bpm BP Resting BP: 131.0/76.0 mmHg Max BP: 131.0/76.0 mmHg Recovery BP: 122.0/69.0 mmHg ECG Stress ECG Conclusion Symptoms: None. Arrhythmias/Ectopy: None. ST-T Changes: less than 0.5mm upsloping ST segment changes. Conclusion: Nondiagnostic ECG/Lexiscan. Electronically signed by : Rosa Cordon MD 01/05/2025 22:46:22
--- OUTSIDE RECORDS SUMMARY | 2025-01-03 11:04 | XMS_ITS | Clinical Summary ---
Author Organization [facility] are -Transitions Address [address] [place] [phone] Phone Care Team Providers Care Certified Prosthetist/Orthotist Name Role Phone Darshana Hoffmann APRN Primary [...] mass index [BMI] 25.0-25.9, adult Leg cramps 660550731 (SNOMED CT) 05/05 Active 05/05 Darshana Hoffmann APRN Cramp in lower limb Leg pain, bilateral 19249371 (SNOMED CT) 04/21 Active 04/21 Akilah Elder PRODUCT DEVELOPMENT MANAGER Pain in lower limb Body mass index (BMI) 25.0-25.9; adult Z68.25 (ICD-10-CM) 04/21 Removed 04/21 Akilah Elder PRODUCT DEVELOPMENT MANAGER Body mass index [BMI] 25.0-25.9, adult Body mass index (BMI) 21.0-21.9; adult Z68.21 (ICD-10-CM) Correctio n Akilah Elder APRN Body mass index [BMI] 21.0-21.9, adult Sore throat (acute) 828744869 (SNOMED CT) 04/21 Inactive 04/21 Akilah Mejíazenobia PRODUCT DEVELOPMENT MANAGER Pain in throat Runny nose 41830877 (SNOMED CT) 04/21 Inactive 04/21 Akilah Elder PRODUCT DEVELOPMENT MANAGER Rhinitis Body mass index (BMI) 21.0-21.9; adult Z68.21 (ICD-10-CM) Removed Junejennifer Salazar PRODUCT DEVELOPMENT MANAGER Body mass index [BMI] 21.0-21.9, adult Body mass index (BMI) 20.0-20.9; adult Z68.20 (ICD-10-CM) Correctio n Junejennifer Ayalamary anne PRODUCT DEVELOPMENT MANAGER Body mass index [BMI] 20.0-20.9, adult Neck pain, chronic 41029747914 07 (SNOMED CT) Active Deepti Ayalamary anne PRODUCT DEVELOPMENT MANAGER Chronic neck pain Body mass index (BMI) [...] or less, adult Screening for diabetes mellitus 524146330 (SNOMED CT) 08/19 Inactive 08/19 Darshana Potts APRN Diabetes mellitus screening Screening for prostate cancer 564850426 (SNOMED CT) 08/19 Inactive 08/19 Darshana Potts PRODUCT DEVELOPMENT MANAGER Screening for malignant neoplasm of prostate Hx of CVA 861069436 (SNOMED CT) 08/19 Active 08/19 Darshana Potts PRODUCT DEVELOPMENT MANAGER History of cerebrovascula r accident RIGHT PONTINE STROKE Tobacco User 462839394 (SNOMED CT) 08/19 Active 08/19 Darshana Potts PRODUCT DEVELOPMENT MANAGER Tobacco user Hx of alcohol abuse 386729018 (SNOMED CT) 08/19 Active 08/19 Darshana Potts APRN History of alcohol abuse Hx of iron deficiency anemia 947558436 (SNOMED CT) 08/19 Active 08/19 Darshana Potts APRN H/O: anemia - iron deficient Screening for colon cancer 410851620 (SNOMED CT) 08/19 Inactive 08/19 Darshana Potts APRN Screening for malignant neoplasm of colon CLOSED FRACTURE OF NAVICULAR BONE OF WRIST S62.009 (ICD-10-CM) 11/29 Active 11/29 Pratik Monique MD Unspecified fracture of navicular [scaphoid] bone of unspecified wrist FRACTURE, WRIST, RIGHT 77043846 (SNOMED CT) 11/23 Active 11/23 Pratik Monique MD Fracture of carpal bone HYPERTENSIO N 02278727 (SNOMED CT) 11/22 Active 11/22 Pratik Monique MD Hypertensive disorder ALCOHOL ABUSE 63723097 (SNOMED CT) 11/22 Active 11/22 Pratik Monique [...] TABLETS IN 24 HOURS. FOR DIARRHEA loperamide 69007116367 Darshana Hoffmann APRN LOPERAMIDE HCL 2 MG TABS TAKE 2 TABLETS BY MOUTH ONCE THEN TAKE 1 TABLET AFTER EACH LOOSE BOWEL MOVEMENT. MAX 6 TABLETS IN 24 HOURS. as neededFOR DIARRHEA loperamide 15371773101 Darshana Hoffmann APRN iron 325 mg (65 mg iron) tablet Take 1 tablet by mouth once a day ferrous sulfate 53890217951 Darshana Hoffmann APRN LORATADINE 10 MG TABS as needed as directed TAKE 1 TABLET BY MOUTH EVERY DAY for runny nose and allergies loratadine 23630178905 Akilah Elder APRN FLUTICASONE PROPIONATE 50 MCG/ACT SUSP [place] 2 spray into both nostrils once a day as needed as directed FOR NASAL CONGESTION fluticasone propionate 90886993411 Akilah Elder APRN COUGH DROPS 5 MG LOZG Hold 1 lozenge in mouth four times a day as needed for cough/sore throat menthol 90791176327 Akilah Elder APRN NICODERM CQ 14 MG/24HR PT24 Apply 1 patch to skin once a day remove and replace patch daily for 6 weeks nicotine 26756897812 Deepti Salazar APRN ACETAMINOPHEN 500 MG TABS Take 1 tablet by mouth every six to eight hours as needed for pain for neck pain acetaminophen 99919121033 Deepti Salazar APRN ATORVASTATIN CALCIUM 40 MG TABS Take 1 tablet by mouth every night atorvastatin 58532238200 Darshana Hoffmann APRN CLOPIDOGREL BISULFATE 75 MG TABS TAKE 1 TABLET BY MOUTH EVERY DAY clopidogrel 32639705069 Darshana Hoffmann APRN ESCITALOPRAM OXALATE 10 MG TABS Take 1 tablet by mouth once a day escitalopram oxalate 67011008444 Darshana Hoffmann APRN LISINOPRIL 5 MG TABS Take 1 tablet by mouth once a day lisinopril 02240068755 Darshana Hoffmann APRN OXCARBAZEPINE 150 MG TABS 1 tablet by mouth twice a day oxcarbazepine 17815759830 Darshana Hoffmann APRN PANTOPRAZOLE SODIUM 40 MG TBEC Take 1 tablet by mouth once a day pantoprazole 00552469442 Darshana Hoffmann APRN TAMSULOSIN HCL 0.4 MG CAPS Take 1 capsule by mouth every night for prostate tamsulosin 29248178454 Darshana Hoffmann APRN TRAZODONE HCL 50 MG TABS Take 1 tablet by mouth every night at bedtime as needed as directed trazodone 42501215206 Darshana Hoffmann APRN ATORVASTATIN CALCIUM 40 MG TABS Take 1 tablet by mouth every night atorvastatin 76571245251 Darshana Potts APRN AMLODIPINE BESYLATE 5 MG TABS Take 1 tablet by mouth once a day amlodipine 42411500107 Darshana Potts APRN AMLODIPINE BESYLATE 5 MG TABS TAKE 1 TABLET BY MOUTH 1 TIME A DAY AMLODIPINE BESYLATE 85628630113 Pratik Monique MD Medications Administered No information [...] in Blood ABS NEUTROPH 4388 CELLS/UL 10*3/uL 2979-9301 N Neutrophils [#/volume] in Blood MPV 11.4 [...] Plan of Care Type Date Detail Referral [facility] [place], [address] Pending order T1 CBC with diff Pending [...] Medication list docu mented in medical record [facility]-[id number] Medication Reconciliation 4004F Patient screened for tobacco use and received tobacco cessation intervention [id number] Current every day smoker 20 11/03/18 [id number] Smoking cessation education CPT-1160F Review of all medica tions by a prescribing practitioner [facility] 6399 T1 CBC with diff [facility] 90130 T1 CMP [id number] Medication Reconciliation CPT-3074F Most recent systolic blood pressure <130 mm Hg CPT-3078F Most recent diastoli c blood pressure <80 mm Hg CPT-1159F Medication list docu mented in medical record CPT-1160F Review of all medica tions by a prescribing practitioner 4004F Patient screened for tobacco use and received tobacco cessation intervention [id number] Current every day smoker 20 11/03/04 [id number] Smoking cessation education SCT-100812879 Giving encouragement to exercise 4004F Patient screened for tobacco use and received tobacco cessation intervention SCT-[id number] Medication Reconciliation CPT-3074F Most recent systolic blood pressure <130 mm Hg CPT-3078F Most recent diastoli c blood pressure <80 mm Hg CPT-1159F Medication list docu mented in medical record CPT-1160F Review of all medica tions by a prescribing practitioner SCT-[id number] Medication Reconciliation 4004F Patient screened for tobacco use and received tobacco cessation intervention SCT-[id number] Current every day smoker 20 08/02/29 [id number] Smoking cessation education CPT-3074F Most recent systolic [...] c blood pressure <80 mm Hg [facility] 88497 T1 G.C. Chlamydia 4004F Patient screened for tobacco use and received tobacco cessation intervention [facility]-[id number] Medication Reconciliation [facility] 6399 T1 CBC with diff [facility] 15532 T1 CMP [facility] 496 T1 HGBA1c [facility] 53906 T1 TSH reflex to free T4 06/21/03 [facility] 5363 T1 Prostate Screening 08/19 [facility] 98772 T1 Acute Hepatits Panel 2022 [facility] 7573 [...]
--- OUTSIDE RECORDS SUMMARY | 2025-01-03 11:05 | XMS_ITS | Clinical Summary ---
Author Organization [facility] Address [facility] [place] [address] Phone Care Team Providers Care Reach Truck Operator Name Role Phone Brandy Martell Unavailable [phone] Conditions or Problems No information available. Medications No information available. Medications Administered No information available. Allergies, Adverse Reactions, Alerts No information available. Results No information available. Plan of Care No information available. Procedures No information available. Vital Signs No information available. Immunizations No information available. Advance Directives No information available.
--- NOTE | 2025-01-03 11:30 | NM_ITS ---
APPROVED REPORT Exam: Nuclear Stress Test Indication: htn, hyperlipidemia, tob use, fm hx, sob, dizziness, fatigue, abnormal jessica, pvd Patient Location: Outpatient Stress Tech: Vannesa Funez MS Tech:Court Colin MALGORZATA RT(R)(N) Ht: 5 ft 9 in Wt: 142 lbs HR: 62 bpm BP: 131/76 mmHg BSA: 1.79 m2 TID: 1.08 BMI: 20.9 History: htn, hyperlipidemia, tob use, fm hx, sob, dizziness, fatigue, abnormal jessica, pvd Procedure: Patient received 0.4 mg of intravenous Lexiscan, resting heart rate 62 bpm, resting blood pressure 131/76 mmHg, with Lexiscan maximum heart rate achieved was 85 bpm which is % of the maximum predicted heart rate and blood pressure was 111/65 mmHg. With Lexiscan, patient denied any complaint of chest pain. Cardiac Stress and Resting SPECT Images: Cardiac Stress and Resting SPECT images were obtained using technetium 99m Myoview 30.8 mCi stress and 10.31 mCi at rest. Resting and stress imaging in supine and prone positions demonstrate a medium sized, moderate, partially reversible perfusion defect in the inferior LV wall. Gated imaging demonstrates normal global LV systolic function. LVEF is calculated at 63%. Conclusion: Medium sized, moderate, partially reversible perfusion defect in the inferior LV wall. Findings are suggestive of partial reversible ischemia. Gated imaging demonstrates normal global LV systolic function. LVEF is calculated at 63%. Electronically signed by : Rosa Cordon MD 01/05/2025 22:43:25
[2025-01-03 12:50] VITALS: BP 131/76; PULSE 65; RESP 16
[2025-01-03] MEDS: SODIUM CHLORIDE 0.9% 10ML SYR (RAD ONLY) 10 ML IV ×2 (13:06)
[2025-01-03] MEDS: ISOTOPE MYOVIEW (PER STUDY) 1 DOSE IV (13:06)
== END 2025-01-03 23:59 | disposition home or self-care (01) ==
LOC: RAD 11:04
PROVIDERS: Visit Provider Internal Medicine
DX: I73.9 Peripheral vascular disease, unspecified (principal); I10 Essential (primary) hypertension; E78.5 Hyperlipidemia, unspecified; R42 Dizziness and giddiness; R68.89 Other general symptoms and signs; R94.39 Abnormal result of other cardiovascular function study; R06.02 Shortness of breath; R53.83 Other fatigue; Z72.0 Tobacco use
CPT/HCPCS: 78452; 93017; 93018; A9502; J2785

== ENCOUNTER 2025-01-10 07:45 | Outpatient (CLI) | payer MEDICAID, SELFPAY ==
--- OUTSIDE RECORDS SUMMARY | 2025-01-10 07:47 | XMS_ITS | Clinical Summary ---
Author Organization [facility] are -Transitions Address [address] [place] [id number] Phone Care Team Providers Care Molder Wax Ball Name Role Phone Darshana Hoffmann APRN Primary [...] mass index [BMI] 25.0-25.9, adult Leg cramps 033899159 (SNOMED CT) 05/05 Active 05/05 Darshana Hoffmann APRN Cramp in lower limb Leg pain, bilateral 81227673 (SNOMED CT) 04/21 Active 04/21 Akilah Elder AUDIO VIDEO MECHANIC Pain in lower limb Body mass index (BMI) 25.0-25.9; adult Z68.25 (ICD-10-CM) 04/21 Removed 04/21 Akilah Elder AUDIO VIDEO MECHANIC Body mass index [BMI] 25.0-25.9, adult Body mass index (BMI) 21.0-21.9; adult Z68.21 (ICD-10-CM) Correctio n Akilah Elder APRN Body mass index [BMI] 21.0-21.9, adult Sore throat (acute) 965360077 (SNOMED CT) 04/21 Inactive 04/21 Akilah Mejíazenobia AUDIO VIDEO MECHANIC Pain in throat Runny nose 62516433 (SNOMED CT) 04/21 Inactive 04/21 Akilah Elder AUDIO VIDEO MECHANIC Rhinitis Body mass index (BMI) 21.0-21.9; adult Z68.21 (ICD-10-CM) Removed Junejennifer Salazar AUDIO VIDEO MECHANIC Body mass index [BMI] 21.0-21.9, adult Body mass index (BMI) 20.0-20.9; adult Z68.20 (ICD-10-CM) Correctio n Junejennifer Ayalamary anne AUDIO VIDEO MECHANIC Body mass index [BMI] 20.0-20.9, adult Neck pain, chronic 88561919717 07 (SNOMED CT) Active Deepti Ayalamary anne AUDIO VIDEO MECHANIC Chronic neck pain Body mass index (BMI) [...] or less, adult Screening for diabetes mellitus 713931799 (SNOMED CT) 08/19 Inactive 08/19 Darshana Potts APRN Diabetes mellitus screening Screening for prostate cancer 165902337 (SNOMED CT) 08/19 Inactive 08/19 Darshana Potts AUDIO VIDEO MECHANIC Screening for malignant neoplasm of prostate Hx of CVA 209794999 (SNOMED CT) 08/19 Active 08/19 Darshana Potts AUDIO VIDEO MECHANIC History of cerebrovascula r accident RIGHT PONTINE STROKE Tobacco User 443424460 (SNOMED CT) 08/19 Active 08/19 Darshana Potts AUDIO VIDEO MECHANIC Tobacco user Hx of alcohol abuse 167241921 (SNOMED CT) 08/19 Active 08/19 Darshana Potts APRN History of alcohol abuse Hx of iron deficiency anemia 528237481 (SNOMED CT) 08/19 Active 08/19 Darshana Potts APRN H/O: anemia - iron deficient Screening for colon cancer 448634046 (SNOMED CT) 08/19 Inactive 08/19 Darshana Potts APRN Screening for malignant neoplasm of colon CLOSED FRACTURE OF NAVICULAR BONE OF WRIST S62.009 (ICD-10-CM) 11/29 Active 11/29 Pratik Monique MD Unspecified fracture of navicular [scaphoid] bone of unspecified wrist FRACTURE, WRIST, RIGHT 38776453 (SNOMED CT) 11/23 Active 11/23 Pratik Monique MD Fracture of carpal bone HYPERTENSIO N 53869282 (SNOMED CT) 11/22 Active 11/22 Pratik Monique MD Hypertensive disorder ALCOHOL ABUSE 39241665 (SNOMED CT) 11/22 Active 11/22 Pratik Monique [...] TABLETS IN 24 HOURS. FOR DIARRHEA loperamide 48242230164 Darshana Hoffmann APRN LOPERAMIDE HCL 2 MG TABS TAKE 2 TABLETS BY MOUTH ONCE THEN TAKE 1 TABLET AFTER EACH LOOSE BOWEL MOVEMENT. MAX 6 TABLETS IN 24 HOURS. as neededFOR DIARRHEA loperamide 00491661617 Darshana Hoffmann APRN iron 325 mg (65 mg iron) tablet Take 1 tablet by mouth once a day ferrous sulfate 32634537501 Darshana Hoffmann APRN LORATADINE 10 MG TABS as needed as directed TAKE 1 TABLET BY MOUTH EVERY DAY for runny nose and allergies loratadine 08972233241 Akilah Elder APRN FLUTICASONE PROPIONATE 50 MCG/ACT SUSP [place] 2 spray into both nostrils once a day as needed as directed FOR NASAL CONGESTION fluticasone propionate 32638553232 Akilah Elder APRN COUGH DROPS 5 MG LOZG Hold 1 lozenge in mouth four times a day as needed for cough/sore throat menthol 98117861987 Akilah Elder APRN NICODERM CQ 14 MG/24HR PT24 Apply 1 patch to skin once a day remove and replace patch daily for 6 weeks nicotine 64316730106 Deepti Salazar APRN ACETAMINOPHEN 500 MG TABS Take 1 tablet by mouth every six to eight hours as needed for pain for neck pain acetaminophen 69439998427 Deepti Salazar APRN ATORVASTATIN CALCIUM 40 MG TABS Take 1 tablet by mouth every night atorvastatin 91752793210 Darshana Hoffmann APRN CLOPIDOGREL BISULFATE 75 MG TABS TAKE 1 TABLET BY MOUTH EVERY DAY clopidogrel 87321371336 Darshana Hoffmann APRN ESCITALOPRAM OXALATE 10 MG TABS Take 1 tablet by mouth once a day escitalopram oxalate 09533296867 Darshana Hoffmann APRN LISINOPRIL 5 MG TABS Take 1 tablet by mouth once a day lisinopril 98833848915 Darshana Hoffmann APRN OXCARBAZEPINE 150 MG TABS 1 tablet by mouth twice a day oxcarbazepine 91190999234 Darshana Hoffmann APRN PANTOPRAZOLE SODIUM 40 MG TBEC Take 1 tablet by mouth once a day pantoprazole 52063973878 Darshana Hoffmann APRN TAMSULOSIN HCL 0.4 MG CAPS Take 1 capsule by mouth every night for prostate tamsulosin 66668982004 Darshana Hoffmann APRN TRAZODONE HCL 50 MG TABS Take 1 tablet by mouth every night at bedtime as needed as directed trazodone 52640271313 Darshana Hoffmann APRN ATORVASTATIN CALCIUM 40 MG TABS Take 1 tablet by mouth every night atorvastatin 12535343381 Darshana Potts APRN AMLODIPINE BESYLATE 5 MG TABS Take 1 tablet by mouth once a day amlodipine 47771307354 Darshana Potts APRN AMLODIPINE BESYLATE 5 MG TABS TAKE 1 TABLET BY MOUTH 1 TIME A DAY AMLODIPINE BESYLATE 71452610619 Pratik Monique MD Medications Administered No information [...] in Blood ABS NEUTROPH 4388 CELLS/UL 10*3/uL 9983-6384 N Neutrophils [#/volume] in Blood MPV 11.4 [...] Plan of Care Type Date Detail Referral [facility] Referral [facility] [place], [address] Pending order T1 CBC with diff Pending [...] Medication list docu mented in medical record [id number] Medication Reconciliation 4004F Patient screened for tobacco use and received tobacco cessation intervention [id number] Current every day smoker 20 11/03/18 [id number] Smoking cessation education CPT-1160F Review of all medica tions by a prescribing practitioner [facility] 6399 T1 CBC with diff [facility] 59482 T1 CMP [id number] Medication Reconciliation CPT-3074F Most recent systolic blood pressure <130 mm Hg CPT-3078F Most recent diastoli c blood pressure <80 mm Hg CPT-1159F Medication list docu mented in medical record CPT-1160F Review of all medica tions by a prescribing practitioner 4004F Patient screened for tobacco use and received tobacco cessation intervention [id number] Current every day smoker 20 11/03/04 [id number] Smoking cessation education [id number] Giving encouragement to exercise 4004F Patient screened for tobacco use and received tobacco cessation intervention [id number] Medication Reconciliation CPT-3074F Most recent systolic blood pressure <130 mm Hg CPT-3078F Most recent diastoli c blood pressure <80 mm Hg CPT-1159F Medication list docu mented in medical record CPT-1160F Review of all medica tions by a prescribing practitioner [id number] Medication Reconciliation 4004F Patient screened for tobacco use and received tobacco cessation intervention [id number] Current every day smoker 20 08/02/29 [id number] Smoking cessation education CPT-3074F Most recent systolic [...] c blood pressure <80 mm Hg [facility] 79745 T1 G.C. Chlamydia 4004F Patient screened for tobacco use and received tobacco cessation intervention [facility][id number] Medication Reconciliation [facility] 6399 T1 CBC with diff [facility] 28770 T1 CMP [facility] 496 T1 HGBA1c [facility] 17341 T1 TSH reflex to free T4 06/21/03 [facility] 5363 T1 Prostate Screening 08/19 [facility] 89407 T1 Acute Hepatits Panel 2022 [facility] 7573 [...]
--- NOTE | 2025-01-10 08:00 | CT_ITS ---
FINAL REPORT TECHNIQUE: Post contrast axial imaging of the aorta and bilateral lower extremity was obtained and reviewed. This study was performed with techniques to keep radiation doses as low as reasonably achievable (ALARA). Individualized dose reduction techniques using automated exposure control or adjustment of mA and/or kV according to the patient's size were employed. CLINICAL HISTORY: PVD/Abnormal DELMI COMPARISON: none FINDINGS: Extensive vascular calcification within the abdominal aorta, some bulky and extending into the lumen of the aorta resulting in greater than 50% aortic stenosis, well-seen on image 29 of series 3. There are bilateral iliac artery stents involving both common and external iliac arteries. Immediately distal to the left external iliac artery stent there appears to be significant stenosis measuring 70% on image 69 of series 3. The celiac axis and SMA are patent. There are patent single renal arteries. Calcification at the origins of the renal arteries is noted. Stenosis is difficult to quantify. Right: 95% stenosis proximal right SFA well-seen on image 92 of series 3. Scattered stenoses throughout the remainder of the SFA. The SFA is continuous with patent popliteal vessel. There is three-vessel runoff to the foot. Left: Complete occlusion of the entire left SFA with reconstitution at the left popliteal. There is three-vessel runoff to the foot. Review of the remaining abdomen and pelvis demonstrates old healed fracture deformities of left posterior ribs. Lung bases are clear. The liver is homogeneous. Gallbladder is present. Spleen, pancreas, adrenal glands, and kidneys are unremarkable. There is extensive sigmoid diverticulosis without evidence of diverticulitis. IMPRESSION: Intraluminal calcification of the abdominal aorta with greater than 50% stenosis. 70% stenosis distal left external iliac artery immediately distal to the stent. 95% stenosis proximal right SFA. Complete occlusion left SFA. Reviewed, Interpreted and Dictated by Saul Prince MD Transcribed by Aditi Lombardi Authenticated and [facility]
[2025-01-10 08:06] LABS: Blood Urea Nitrogen 7 mg/dl (9-20); Creatinine,Serum 0.80 mg/dl (0.66-1.25); Estimated Glomerular Filt Rate 98 ml/min (>60); GFR (African American) 119 ML/MIN (>60)
[2025-01-10] MEDS: IOPAMIDOL-370 (76%);100ML BOTTLE 100 ML IV (08:34)
[2025-01-10] MEDS: 0.9 % SODIUM CHLORIDE 50 ML VIAL IV ×2 (08:34)
[2025-01-10] MEDS: IOPAMIDOL-370 (76%);100ML BOTTLE 20 ML IV (08:34)
[2025-01-10] MEDS: SODIUM CHLORIDE 0.9% 10ML SYR (RAD ONLY) 10 ML IV (08:34)
== END 2025-01-10 23:59 | disposition home or self-care (01) ==
LOC: RAD 07:46
PROVIDERS: Visit Provider Internal Medicine
DX: I70.0 Atherosclerosis of aorta (principal); I70.203 Unspecified atherosclerosis of native arteries of extremities, bilateral legs; I70.92 Chronic total occlusion of artery of the extremities
CPT/HCPCS: 36415; 75635; 82565; 84520; Q9967

== ENCOUNTER 2025-01-13 17:33 | Observation (INO) | payer MEDICAID, SELFPAY ==
[2025-01-13] VITALS (10 sets, daily range): BP systolic 94–129; BP diastolic 57–77; PULSE 54–83; RESP 15–24; TEMP 36.7–36.8; O2SAT 92–100; BMI 23.1
--- NOTE | 2025-01-13 17:38 | XR_ITS ---
PROCEDURE INFORMATION: Exam: XR Pelvis Exam date and time: 01/13/2025 5:42 PM Age: 64 years old Clinical indication: Injury or trauma TECHNIQUE: Imaging protocol: Radiologic exam of the pelvis. Views: 1 or 2 view. COMPARISON: CT ANGIO ABDOMEN/FEMORAL 01/10/2025 8:20 AM FINDINGS: Bones/joints: Moderate osteoarthritis of the bilateral hip joints. Subtle irregularity in the right inferior pubic ramus, in keeping with a likely chronically healed fracture, best seen on the pelvic CT performed concomitantly, please review. No acutely displaced skeletal fractures. No joint dislocation. No aggressive osseous lesions. Chronic enthesopathic changes in the left greater trochanter. Soft tissues: No acute soft tissue findings. Vasculature: Severe atherosclerotic calcification of the arterial vasculature. IMPRESSION: No acute findings.
--- NOTE | 2025-01-13 17:38 | XR_ITS ---
PROCEDURE INFORMATION: Exam: XR Chest Exam date and time: 01/13/2025 5:39 PM Age: 64 years old Clinical indication: Injury or trauma TECHNIQUE: Imaging protocol: Radiologic exam of the chest. Views: 1 view. COMPARISON: CT ANGIO ABDOMEN/FEMORAL 01/10/2025 8:20 AM FINDINGS: Airway: Airways are patent. Lungs: Subtle bilateral diffuse ground-glass densities. Pleural spaces: No pleural effusions or pneumothorax. Heart/Mediastinum: Mild cardiomegaly. Vasculature: Calcified aortic knob. Bones/joints: Healed proximal right humeral fracture. Multilevel bilateral healed rib fractures. IMPRESSION: Subtle bilateral diffuse ground-glass densities. Question atypical pneumonia or chronic interstitial changes. Please review chest CT performed concomitantly.
--- NOTE | 2025-01-13 17:39 | CT_ITS ---
PROCEDURE INFORMATION: Exam: CT Cervical Spine Without Contrast Exam date and time: 01/13/2025 6:05 PM Age: 64 years old Clinical indication: Injury or trauma; Additional info: Trauma, critical injury suspected TECHNIQUE: Imaging protocol: Computed tomography of the cervical spine without contrast. Radiation optimization: All CT scans at this facility use at least one of these dose optimization techniques: automated exposure control; mA and/or kV adjustment per patient size (includes targeted exams where dose is matched to clinical indication); or iterative reconstruction. COMPARISON: CT HEAD/BRAIN WO CON 01/13/2025 6:02 PM FINDINGS: Bones: Cervical vertebrae normal in height. No acute cervical spine fracture. Partially visualized old left clavicular fracture. Mild right lateral tilt. Maintained craniocervical junction. Grade 1 anterolisthesis C4 on C5 and C5 on C6. Multilevel degenerative changes. Varying degrees of neural foraminal narrowing. No severe spinal canal stenosis. Minimal retrolisthesis C6 on C7. Lungs: See report on concurrently performed CT chest. Vasculature: Bilateral carotid artery calcifications. Soft tissues: Unremarkable neck soft tissues. IMPRESSION: No acute osseous findings.
--- NOTE | 2025-01-13 17:39 | CT_ITS ---
PROCEDURE INFORMATION: Exam: CTA Head With Contrast, Arteriography Exam date and time: 01/13/2025 6:15 PM Age: 64 years old Clinical indication: Injury or trauma; Additional info: Trauma, critical injury suspected TECHNIQUE: Imaging protocol: Computed tomographic angiography of the head with contrast. Exam focused on the arteries. 3D rendering (Not supervised by radiologist): MIP and/or 3D reconstructed images were created by the technologist. Radiation optimization: All CT scans at this facility use at least one of these dose optimization techniques: automated exposure control; mA and/or kV adjustment per patient size (includes targeted exams where dose is matched to clinical indication); or iterative reconstruction. Contrast material: ISO 370; Contrast volume: 80 ml; Contrast route: INTRAVENOUS (IV); COMPARISON: CT HEAD/BRAIN WO CON 01/13/2025 6:02 PM FINDINGS: ANTERIOR CIRCULATION: Right internal carotid artery: Mild atherosclerotic narrowing of the intracranial segment without flow-limiting stenosis. No aneurysm. Right middle cerebral artery: No occlusion or significant stenosis. No aneurysm. Right anterior cerebral artery: Hypoplastic A1 segment. Flow within the A2 segment largely established by means of an anterior communicating artery. No occlusion or significant stenosis. No aneurysm. Left internal carotid artery: Mild atherosclerotic narrowing of the intracranial segment without flow-limiting stenosis. No aneurysm. Left middle cerebral artery: No occlusion or significant stenosis. No aneurysm. Left anterior cerebral artery: No occlusion or significant stenosis. No aneurysm. POSTERIOR CIRCULATION: Right vertebral artery: Focal atherosclerosis of the mid V4 segment although degree of stenosis is difficult to assess. No aneurysm. Left vertebral artery: Focal atherosclerosis of the mid V4 segment although degree of stenosis is difficult to assess. No aneurysm. Basilar artery: No occlusion or significant stenosis. No aneurysm. Right posterior cerebral artery: Hypoplastic P1 segment. Flow within the P2 segment largely established by means of a posterior communicating artery. No occlusion or significant stenosis. No aneurysm. Left posterior cerebral artery: No occlusion or significant stenosis. No aneurysm. Brain: No definite mass, mass effect, or midline shift. Cerebral ventricles: No ventriculomegaly. Bones/joints: Unremarkable. No acute fracture. Soft tissues: Redemonstrated right occipital scalp contusion and laceration/abrasion. IMPRESSION: No large vessel occlusion or flow-limiting stenosis.
--- NOTE | 2025-01-13 17:39 | CT_ITS ---
PROCEDURE INFORMATION: Exam: CTA Neck With Contrast Exam date and time: 01/13/2025 6:15 PM Age: 64 years old Clinical indication: Injury or trauma; Additional info: Trauma, critical injury suspected TECHNIQUE: Imaging protocol: Computed tomographic angiography of the neck with contrast. Exam focused on the cervical segments of the vasculature. 3D rendering (Not supervised by radiologist): MIP and/or 3D reconstructed images were created by the technologist. Radiation optimization: All CT scans at this facility use at least one of these dose optimization techniques: automated exposure control; mA and/or kV adjustment per patient size (includes targeted exams where dose is matched to clinical indication); or iterative reconstruction. Contrast material: ISO 370; Contrast volume: 80 ml; Contrast route: INTRAVENOUS (IV); COMPARISON: CT ANGIO NECK 01/13/2025 6:15 PM FINDINGS: Right common carotid artery: Varying degrees of [id number] atherosclerotic narrowing of the mid to distal segments without flow-limiting stenosis. No dissection or occlusion. Right internal carotid artery: Moderate stenosis at the origin. No dissection or occlusion. Right external carotid artery: Mild focal atherosclerosis at the proximal segment without flow-limiting stenosis. Left common carotid artery: Intermittent mild atherosclerotic narrowing at the origin and mid to distal segments without flow-limiting stenosis Left internal carotid artery: Mild stenosis of the proximal cervical segment. No dissection or occlusion. Left external carotid artery: No occlusion or stenosis of the origin. Right vertebral artery: Hypoplastic vessel. No stenosis. No dissection or occlusion. Left vertebral artery: Aortic arch origin. Mild atherosclerotic narrowing at the origin without flow-limiting stenosis. No dissection or occlusion. Soft tissues: Unremarkable. Bones/joints: No acute fracture. Old left clavicle fracture. Lungs: See report on concurrently performed CT chest. IMPRESSION: 1. No occlusion or dissection. 2. Moderate right internal carotid artery origin stenosis. Mild left internal carotid artery vessel cervical segment stenosis. REFERENCES: NASCET CRITERIA. The degree of stenosis in the cervical segment of the internal carotid artery is based on NASCET criteria. Normal is no stenosis. Mild is less than 50% stenosis. Moderate is 50-69% stenosis. Severe is 70% to 99% stenosis. Total occlusion is no detectable patent lumen.
--- NOTE | 2025-01-13 17:39 | XR_ITS ---
PROCEDURE INFORMATION: Exam: XR Left Knee Exam date and time: 01/13/2025 6:36 PM Age: 64 years old Clinical indication: Injury or trauma; Fall; Blunt trauma; Knee; Left; Additional info: Tenderness S/P fall TECHNIQUE: Imaging protocol: Radiologic exam of the left knee. Views: 3 views. COMPARISON: US ARTERIAL LOWER EXT REST 12/14/2024 9:28 AM FINDINGS: Bones/joints: Normal anatomic alignment. The bone density is normal for this patient's age. Joint spaces are well preserved. No acutely displaced fractures. No joint dislocation. No aggressive osseous lesions. There is no evidence of a joint effusion. Soft tissues: There is no significant soft tissue swelling. Vasculature: Moderate atherosclerotic calcification of the arterial vasculature. IMPRESSION: No acute skeletal pathology.
--- NOTE | 2025-01-13 17:39 | CT_ITS ---
PROCEDURE INFORMATION: Exam: CTA Chest With Contrast Exam date and time: 01/13/2025 6:18 PM Age: 64 years old Clinical indication: Injury or trauma; Additional info: Trauma, critical injury suspected TECHNIQUE: Imaging protocol: Computed tomographic angiography of the chest with contrast. Exam focused on the arteries. 3D rendering (Not supervised by radiologist): MIP and/or 3D reconstructed images were created by the technologist. Radiation optimization: All CT scans at this facility use at least one of these dose optimization techniques: automated exposure control; mA and/or kV adjustment per patient size (includes targeted exams where dose is matched to clinical indication); or iterative reconstruction. Contrast material: ISO 370; Contrast volume: 80 ml; Contrast route: INTRAVENOUS (IV); COMPARISON: CR XR CHEST PORTABLE 01/13/2025 5:39 PM FINDINGS: Pulmonary arteries: Normal. No pulmonary emboli. Great vessels off aortic arch: The mediastinal structures including the esophagus, trachea, great vessels, and heart show no evidence of injury or acute pathologic processes. Aorta: Unremarkable. No aortic aneurysm. No aortic dissection. Lungs: Mild bibasilar atelectasis. No acute infiltrates. Pleural spaces: Unremarkable. No pneumothorax. No pleural effusion. Heart: See Great vessels off aortic arch finding. Lymph nodes: Unremarkable. No enlarged lymph nodes. Bones/joints: Acute comminuted fracture through the distal 1/3 left clavicle. Multiple old left lateral rib fractures identified. Soft tissues: Unremarkable. IMPRESSION: 1. No acute abnormalities are identified. 2. Ununited old comminuted fracture through the distal 1/3 left clavicle. 3. Multiple old left lateral rib fractures identified.
--- NOTE | 2025-01-13 17:39 | XR_ITS ---
PROCEDURE INFORMATION: Exam: XR Left Ankle Exam date and time: 01/13/2025 6:36 PM Age: 64 years old Clinical indication: Injury or trauma; Fall; Blunt trauma; Ankle; Left; Additional info: Tenderness S/P fall TECHNIQUE: Imaging protocol: Radiologic exam of the left ankle. Views: 3 or more views. COMPARISON: CR XR FOOT WT BEARING LT 3V 12/05/2024 2:19 PM FINDINGS: Bones/joints: Normal. Soft tissues: Normal. IMPRESSION: No acute findings.
--- NOTE | 2025-01-13 17:39 | XR_ITS ---
PROCEDURE INFORMATION: Exam: XR Left Tibia and Fibula Exam date and time: 01/13/2025 6:36 PM Age: 64 years old Clinical indication: Injury or trauma; Fall; Blunt trauma; Lower leg; Left; Additional info: Tenderness S/P fall TECHNIQUE: Imaging protocol: Radiologic exam of the left tibia and fibula. Views: 2 views. COMPARISON: CR XR FOOT WT BEARING LT 3V 12/05/2024 2:19 PM FINDINGS: Bones/joints: Normal anatomic alignment. The bone density is normal for this patient's age. No acutely displaced fractures. No joint dislocation. No aggressive osseous lesions. Soft tissues: There is no significant soft tissue swelling. IMPRESSION: No acute skeletal pathology.
--- NOTE | 2025-01-13 17:39 | CT_ITS ---
PROCEDURE INFORMATION: Exam: CTA Abdomen and Pelvis With Contrast Exam date and time: 01/13/2025 6:18 PM Age: 64 years old Clinical indication: Injury or trauma; Fall; Blunt trauma; Lower abdominal or back area; Bilateral; Additional info: Trauma, critical injury suspected TECHNIQUE: Imaging protocol: Computed tomographic angiography of the abdomen and pelvis with contrast. Exam focused on the arteries. 3D rendering (Not supervised by radiologist): MIP and/or 3D reconstructed images were created by the technologist. Radiation optimization: All CT scans at this facility use at least one of these dose optimization techniques: automated exposure control; mA and/or kV adjustment per patient size (includes targeted exams where dose is matched to clinical indication); or iterative reconstruction. Contrast material: ISO 370; Contrast volume: 80 ml; Contrast route: INTRAVENOUS (IV); COMPARISON: CT ANGIO ABDOMEN/FEMORAL 01/10/2025 8:20 AM FINDINGS: Lungs: Bibasilar atelectasis. Aorta: Arthrosclerotic calcifications in the aorta . Celiac and mesenteric arteries: No occlusion or significant stenosis. Renal arteries: No occlusion or significant stenosis. Right iliac arteries: No occlusion or significant stenosis. Left iliac arteries: No occlusion or significant stenosis. Liver: No mass. Gallbladder and biliary ducts: Unremarkable. No calcified stones. No ductal dilation. Pancreas: Unremarkable. No mass. No ductal dilation. Spleen: Unremarkable. No splenomegaly. Adrenal glands: Unremarkable. No mass. Kidneys and ureters: Unremarkable. No solid mass. No hydronephrosis. Stomach and bowel: Diverticulosis in the sigmoid without diverticulitis. No colitis or bowel obstruction Appendix: No evidence of appendicitis. Intraperitoneal space: Unremarkable. No free air. No significant fluid collection. Lymph nodes: Unremarkable. No enlarged lymph nodes. Urinary bladder: Unremarkable. No mass. Reproductive: Unremarkable as visualized. Bones/joints: Multiple chronic left posterolateral rib fractures. Soft tissues: Unremarkable. IMPRESSION: No acute posttraumatic findings in the abdomen pelvis
--- NOTE | 2025-01-13 17:39 | CT_ITS ---
PROCEDURE INFORMATION: Exam: CT Head Without Contrast Exam date and time: 01/13/2025 6:02 PM Age: 64 years old Clinical indication: Injury or trauma; Blunt trauma (contusions or hematomas); Additional info: Trauma, critical injury suspected TECHNIQUE: Imaging protocol: Computed tomography of the head without contrast. Radiation optimization: All CT scans at this facility use at least one of these dose optimization techniques: automated exposure control; mA and/or kV adjustment per patient size (includes targeted exams where dose is matched to clinical indication); or iterative reconstruction. COMPARISON: No relevant prior studies available. FINDINGS: Brain: No acute intracranial hemorrhage, midline shift, or mass effect. Diffuse brain parenchymal volume loss. Areas of encephalomalacia and gliosis within the left parietal lobe and anterior left temporal lobe. Suggestion of small old basal ganglia, thalamic and pontine lacunar infarcts. Cerebral ventricles: No ventriculomegaly. Paranasal sinuses: [id number] paranasal sinus disease. Mastoid air cells: Trace mastoid effusions. Bones: Unremarkable. No acute fracture. Soft tissues: Moderate right occipital scalp contusion associated with superficial lacerations/abrasions. IMPRESSION: 1. No acute intracranial findings. 2. Moderate right occipital scalp contusion associated with superficial lacerations/abrasions. No calvarial fracture.
--- NOTE | 2025-01-13 17:39 | XR_ITS ---
PROCEDURE INFORMATION: Exam: XR Left Foot Exam date and time: 01/13/2025 6:36 PM Age: 64 years old Clinical indication: Injury or trauma; Fall; Blunt trauma; Foot; Left; Additional info: Tenderness S/P fall TECHNIQUE: Imaging protocol: Radiologic exam of the left foot. Views: 3 or more views. COMPARISON: CR XR FOOT WT BEARING LT 3V 12/05/2024 2:19 PM FINDINGS: Bones/joints: 1st metatarsophalangeal angle of 49 degrees. There are pronounced degenerative changes of the first metatarsophalangeal joint. Moderate osteoarthritis of the distal interphalangeal joints. No acutely displaced fractures. No joint dislocation. No aggressive osseous lesions. Soft tissues: There is no significant soft tissue swelling. IMPRESSION: 1. No acute skeletal pathology. 2. Hallux valgus. 3. Moderate osteoarthritis.
--- NOTE | 2025-01-13 17:39 | CT_ITS ---
PROCEDURE INFORMATION: Exam: CT Thoracic Spine Without Contrast Exam date and time: 01/13/2025 6:07 PM Age: 64 years old Clinical indication: Injury or trauma; Additional info: Trauma, critical injury suspected TECHNIQUE: Imaging protocol: Computed tomography of the thoracic spine without contrast. Radiation optimization: All CT scans at this facility use at least one of these dose optimization techniques: automated exposure control; mA and/or kV adjustment per patient size (includes targeted exams where dose is matched to clinical indication); or iterative reconstruction. COMPARISON: CT CERVICAL SPINE WO CON 01/13/2025 6:05 PM FINDINGS: Bones/joints: Partially seen kyphoplasty changes at L2. Moderate degenerative changes of the lower cervical spine. Thoracic vertebra have preserved vertebral body heights and minimal symmetric and diffuse disc space narrowing. Nonunited healed fracture of the left mid clavicle. Partially seen multilevel healed left rib fractures. No acute fracture or dislocation of the thoracic spine. Soft tissues: Unremarkable. Vasculature: Moderate aortic atherosclerosis. Very prominent calcified plaques are present in the infrarenal abdominal aorta and only partially visualized in exam. Please review CTA abdomen performed on 01/10/2025. Lungs: Diffuse ground-glass opacities throughout both lungs with basal dominant dependent interstitial thickening. Could be related to a combination of atelectasis, atypical pneumonia, or chronic interstitial disease. Consider follow-up chest CT. Heart: Moderate aortic valve calcifications. Coronary arteries: Severe coronary calcifications. Spleen: Benign calcified splenic granulomas. Other findings: Benign calcified hilar granulomas. IMPRESSION: No acute fracture or dislocation of the thoracic spine.
--- NOTE | 2025-01-13 17:39 | CT_ITS ---
PROCEDURE INFORMATION: Exam: CT Lumbar Spine Without Contrast Exam date and time: 01/13/2025 6:10 PM Age: 64 years old Clinical indication: Injury or trauma; Additional info: Trauma, critical injury suspected TECHNIQUE: Imaging protocol: Computed tomography of the lumbar spine without contrast. Radiation optimization: All CT scans at this facility use at least one of these dose optimization techniques: automated exposure control; mA and/or kV adjustment per patient size (includes targeted exams where dose is matched to clinical indication); or iterative reconstruction. COMPARISON: CT THORACIC SPINE WO CON 01/13/2025 6:07 PM FINDINGS: Bones/joints: No acute fracture. Normal alignment. L2 chronic fracture and previous kyphoplasty with extrusion of the cement into the L2-L3 disc space. No significant disc bulge or herniation. No severe spinal canal stenosis. No significant neural foraminal narrowing. Soft tissues: Unremarkable. IMPRESSION: No acute lumbar spine fracture.
--- NOTE | 2025-01-13 17:44 | CT_ITS ---
PROCEDURE INFORMATION: Exam: CT Pelvis Without Contrast, Skeleton Exam date and time: 01/13/2025 6:12 PM Age: 64 years old Clinical indication: Injury or trauma; Additional info: Tenderness S/P fall TECHNIQUE: Imaging protocol: Computed tomography of the pelvis without contrast. Exam focused on the skeleton. Radiation optimization: All CT scans at this facility use at least one of these dose optimization techniques: automated exposure control; mA and/or kV adjustment per patient size (includes targeted exams where dose is matched to clinical indication); or iterative reconstruction. COMPARISON: CR XR PELVIS 1-2V 01/13/2025 5:42 PM FINDINGS: Intestine: Colonic diverticulosis. No obstruction or thickening. Vasculature: Severe aortic and bi-iliac atherosclerosis with bilateral iliac stents and right common femoral artery stent. Bones/joints: Subtle chronic or congenital deformity in the right inferior pubic ramus, most likely related to a healed fracture. Mild osteoarthritis of the bilateral hip joints. No acute fracture or dislocation. Soft tissues: Unremarkable. IMPRESSION: No acute findings.
--- NOTE | 2025-01-13 17:44 | XR_ITS ---
PROCEDURE INFORMATION: Exam: XR Left Femur Exam date and time: 01/13/2025 6:36 PM Age: 64 years old Clinical indication: Injury or trauma; Fall; Blunt trauma; Thigh or upper leg; Left; Additional info: Tenderness S/P fall TECHNIQUE: Imaging protocol: Radiologic exam of the left femur. Views: 2 views. COMPARISON: CT ANGIO ABDOMEN/FEMORAL 01/10/2025 8:20 AM FINDINGS: Bones/joints: Mild osteoarthritis of the left hip joint. No acutely displaced fractures. No joint dislocation. No aggressive osseous lesions. Chronic enthesopathic changes in the left greater trochanter. Soft tissues: No acute soft tissue findings. Organs: Contrast filled urinary bladder. Vasculature: Severe atherosclerotic calcification of the arterial vasculature. IMPRESSION: No acute skeletal pathology.
[2025-01-13 17:45] LABS: Hematocrit 36.8 % (42.0-52.0); Hemoglobin 11.9 g/dL (14.1-18.0); Immature Granulocytes % 0.2 %; Mean Corpuscular HGB Conc 32.3 g/dL (31.8-35.4); Mean Corpuscular Hemoglobin 25.2 pg (27.0-31.2); Mean Corpuscular Volume 77.8 fl (80-94); Nucleated Red Blood Cells % 0 %; Platelet Count 435 K/mm3 (142-424); Red Blood Count 4.73 M/mm3 (4.60-6.20); Red Cell Distribution Width-SD 49.5 fL; White Blood Count 9.6 K/mm3 (4.8-10.8)
--- NOTE | 2025-01-13 17:45 | ECG_ITS ---
APPROVED REPORT Exam: Resting ECG HR:68 bpm ECG Measurements Heart Rate 68 AXES VA 187 P 64 QRSd 105 QRS 77 QT 429 T 69 QTc 446 Conclusion SINUS RHYTHM SEPTAL MYOCARDIAL INFARCTION , PROBABLY OLD [40+ ms Q WAVE IN V1/V2] ABNORMAL ECG UNCONFIRMED REPORT Electronically signed by : ANISH KELLY, 01/14/2025 23:02:55
--- NOTE | 2025-01-13 17:45 | HMH.EDGENADL ---
Discharge Plan Disposition Patient Disposition: Admitted Condition: Good Clinical Impressions Clinical Impression: Intoxication Discharge ED Provider: Rebecca Tavarez General Adult HPI General Chief complaint: Trauma Stated complaint: Fall Time Seen by Provider: 01/13/25 17:38 History of Present Illness HPI narrative: Patient is a 64-year-old gentleman who presented to the emergency department as a trauma alert from scene. Reportedly per EMS, another gentleman saw the patient fall backwards and hit his head on a concrete wall. EMS states that bystanders said that his speech sounded the same before and after the fall. Patient had positive loss of consciousness. Patient's vital signs were otherwise unremarkable and route. Patient had some bleeding to the posterior scalp with an obvious hematoma. No other history was known. On arrival, patient appeared intoxicated, history was otherwise unable to be obtained. Patient does report that he has been drinking today. Related Data Home Medications ?Medication ?Instructions ?Recorded ?Confirmed cholecalciferol (vitamin D3) 1,250 50,000 unit PO WEEKLY 12/05/24 01/14/25 mcg (50,000 unit) capsule clopidogrel 75 mg tablet 75 mg PO DAILY 12/05/24 01/14/25 lisinopril 5 mg tablet 5 mg PO DAILY 12/05/24 01/14/25 Held on 01/14/25. Instructions: until PCP f/u melatonin 5 mg tablet 10 mg PO HS 12/05/24 01/14/25 pantoprazole 20 mg tablet,delayed 20 mg PO HS 12/05/24 01/14/25 release salicylic acid 40 % topical patch 1 applic topical Q48H 12/05/24 01/14/25 (Compound W) tamsulosin 0.4 mg capsule 0.4 mg PO DAILY 12/05/24 01/14/25 Previous Rx's ?Medication ?Instructions ?Recorded gentamicin 0.1 % topical cream 1 applic topical BID open wound 3 01/07/25 weeks #30 grams sulfamethoxazole 800 1 tab PO BID cellulitis 10 days 01/07/25 mg-trimethoprim 160 mg tablet #20 tabs (Bactrim DS) ferrous sulfate 325 mg (65 mg 325 mg PO DAILY #30 tabs 01/14/25 iron) tablet (Iron (ferrous sulfate)) Allergies Allergy/AdvReac Type Severity Reaction Status Date / Time aspirin Allergy Unknown Verified 01/07/25 13:19 [facility] Dis[facility]: The information contained in this section may have been updated after the patient was seen, as this information can be updated by other users. Medical History Amputation finger Peripheral vascular disease Other specified symptoms and signs involving the circulatory and respiratory systems Numbness and tingling Hypertension Family History (Updated 01/14/25 @ 02:06 [address] Court Schroeder RN) Other No significant family history Social History Smoking Status: Current every day smoker tobacco type: cigarettes packs per day: 1 alcohol intake: former year quit: 2023 substance use type: former substance user, marijuana and crack/cocaine current occupational status: retired Travel in the last 8 weeks?: None Other Medical History Have you received the Flu Vaccine for this season: No Have you received the Pneumonia Vaccine: No ROS Obtained: Yes All systems reviewed & no additional complaints except as documented and Yes Systems reviewed as appropriate & no additional complaints except as documented Physical Exam General General appearance: alert and in no apparent distress Head Head exam: normocephalic, normal inspection and other (Large posterior scalp hematoma with 3 cm laceration with active bleeding) Eye Eye exam: Present normal appearance, PERRL and EOMI; Absent scleral icterus ENT ENT exam: Present normal exam and normal external ear exam Neck Neck exam: Present normal inspection, full ROM and other (C-collar in place) Chest Chest inspection: Present normal inspection and symmetric chest wall rise Respiratory Respiratory exam: Present normal lung sounds bilaterally; Absent respiratory distress or wheezes Cardiovascular Cardiovascular exam: Present regular rate, normal rhythm, normal heart sounds and other (No chest wall tenderness) Abdominal Exam Abdominal exam: Present soft and distention; Absent tenderness, guarding or rebound Extremities Exam Extremities exam: Present normal inspection and full ROM Back Exam Back exam: Present normal inspection and full ROM Neurological Exam Neurological exam: Present alert and other (Alert and oriented x 1); Absent motor sensory deficit Psychiatric Psychiatric exam: Present normal affect and normal mood Skin Skin exam: Present warm and dry Medical Decision Making Medical Records Medical records reviewed: Yes I reviewed the patient's medical records. Screening: Per USPSTF and CDC recommendations, given the prevalence of disease in our region, it is our hospital?s policy to screen for HIV and viral Hepatitis for all patients aged 18 and over and those with ongoing risk factors. Thai Inquiry Pt receiving controlled substance: No Vital Signs: 01/13/25 17:46 01/13/25 18:26 01/13/25 19:00 Temperature 98.0 F 98.2 F Temperature Source Oral Oral Pulse Rate 69 Pulse Rate [Bilateral Radial] 83 Pulse Rate [Right Radial] 83 83 Respiratory Rate 20 20 18 Blood Pressure 129/65 Blood Pressure [Right Radial Artery] 113/77 113/77 Blood Pressure Mean 89 Blood Pressure Mean [Right Radial Artery] 89 89 Blood Pressure Source Blood Pressure Source [Right Radial Artery] Automatic Cuff Automatic Cuff Blood Pressure Position Blood Pressure Position [Right Radial Artery] Supine Sitting 02 Sat by Pulse Oximetry 93 L 100 95 Oxygen Delivery Method Room Air Room Air 01/13/25 19:15 01/13/25 19:33 01/13/25 20:00 Temperature Temperature Source Pulse Rate 68 70 Pulse Rate [Bilateral Radial] Pulse Rate [Right Radial] Respiratory Rate 24 24 Blood Pressure 125/74 123/76 Blood Pressure [Right Radial Artery] Blood Pressure Mean 82 91 Blood Pressure Mean [Right Radial Artery] Blood Pressure Source Blood Pressure Source [Right Radial Artery] Blood Pressure Position Blood Pressure Position [Right Radial Artery] 02 Sat by Pulse Oximetry 100 95 92 L Oxygen Delivery Method Room Air 01/13/25 20:30 01/13/25 21:00 01/13/25 23:00 Temperature Temperature Source Pulse Rate 67 68 Pulse Rate [Bilateral Radial] Pulse Rate [Right Radial] Respiratory Rate 15 23 Blood Pressure 112/70 122/74 Blood Pressure [Right Radial Artery] Blood Pressure Mean 84 88 Blood Pressure Mean [Right Radial Artery] Blood Pressure Source Blood Pressure Source [Right Radial Artery] Blood Pressure Position Blood Pressure Position [Right Radial Artery] 02 Sat by Pulse Oximetry 97 96 Oxygen Delivery Method Room Air 01/13/25 23:00 01/13/25 23:31 Temperature 98.2 F Temperature Source Temporal Artery Scan Pulse Rate 54 L Pulse Rate [Bilateral Radial] Pulse Rate [Right Radial] Respiratory Rate 15 Blood Pressure 94/57 L Blood Pressure [Right Radial Artery] Blood Pressure Mean Blood Pressure Mean [Right Radial Artery] Blood Pressure Source Automatic Cuff Blood Pressure Source [Right Radial Artery] Blood Pressure Position Supine Blood Pressure Position [Right Radial Artery] 02 Sat by Pulse Oximetry Oxygen Delivery Method Room Air Room Air Lab Data Lab results reviewed: Yes I reviewed the patient's lab results. Lab Results 01/13/25 00:34: Chlamy pneumoniae PCR Not detected, Adenovirus (PCR) Not detected, B. pertussis DNA (PCR) Not detected, Coronavirus OC43 (PCR) Not detected, Coronavirus HKU1 (PCR) Not detected, Coronavirus 229E (PCR) Not detected, SARS-CoV-2 (PCR) Not detected, Coronavirus NL63 (PCR) Not detected, Human Metapneumovir PCR Not detected, Influenza A (H1) PCR Not detected, Influ A (H1N1/09) PCR Not detected, Influenza A (H3) PCR Not detected, Influenza Type A (PCR) Not detected, Influenza Type B (PCR) Not detected, M. pneumoniae (PCR) Not detected, Parainfluenza 1 (PCR) Not detected, Parainfluenza 2 (PCR) Not detected, Parainfluenza 3 (PCR) Not detected, Parainfluenza 4 (PCR) Not detected, RSV (PCR) Not detected, Entero/Rhino (PCR) Detected A 01/13/25 17:30: WBC 9.6, RBC 4.73, Hgb 11.9 L, Hct 36.8 L, MCV 77.8 L, MCH 25.2 L, MCHC 32.3, RDW 17.6 H, Plt Count 435 H, MPV 11.2 H, Neut % (Auto) 47.6, Lymph % (Auto) 43.4, [place] % (Auto) 7.2, Eos % (Auto) 1.1, Baso % (Auto) 0.5, Neut # (Auto) 4.6, Lymph # (Auto) 4.2, [place] # (Auto) 0.7, Eos # (Auto) 0.1, Baso # (Auto) 0.1, PT 11.5, INR 1.04, APTT 28.2, Sodium 134 L, Potassium 3.9, Chloride 102, Carbon Dioxide 16 L, Anion Gap 19.9 H, BUN 9, Creatinine 1.00, Estimated GFR 76, Est GFR ( Amer) 92, Glucose 102 H, Lactate 2.6 H, Calcium 9.0, Total Bilirubin 0.3, AST 23, ALT 12, Alkaline Phosphatase 76, Troponin I < 0.01, Total Protein 7.8, Albumin 4.4, Globulin 3.4 H, Albumin/Globulin Ratio 1.3, Lipase 65, Plasma/Serum Alcohol 260 H 01/13/25 20:04: Urine Color Yellow, Urine Appearance Clear, Urine pH 6.0, Ur Specific [place] <= 1.005, Urine Protein Negative, Urine Glucose (UA) Negative, Urine Ketones Negative, Urine Blood Negative, Urine Nitrate Negative, Urine Bilirubin Negative, Urine Urobilinogen 0.2, Ur Leukocyte Esterase Negative, Urine RBC None, Urine WBC Occasional, Ur Squamous Epith Cells None, Urine Bacteria Trace, Urine Opiates Screen Negative, Urine Methadone Screen Negative, Ur Barbituates Screen Negative, Ur Phencyclidine Scrn Negative, Ur Amphetamines Screen Negative, U Benzodiazepines Scrn Negative, Urine Cocaine Screen Negative, U Marijuana (THC) Screen Negative 01/13/25 22:14: Urine Color Yellow, Urine Appearance Clear, Urine pH 5.5, Ur Specific [place] <= 1.005, Urine Protein Negative, Urine Glucose (UA) Negative, Urine Ketones Negative, Urine Blood Negative, Urine Nitrate Negative, Urine Bilirubin Negative, Urine Urobilinogen 0.2, Ur Leukocyte Esterase Negative, Urine RBC None, Urine WBC Occasional, Ur Squamous Epith Cells None, Urine Bacteria Trace 01/14/25 05:43 01/14/25 05:43 Orders (Tests/Meds): ED MEDICATIONS Discontinued Medications Generic Name Dose Route Start Last Admin Trade Name Alejandra PRN Reason Stop Dose Admin Acetaminophen 650 mg 01/13/25 22:22 01/14/25 08:31 Acetaminophen 325mg Tab PO 02/12/25 22:21 650 mg Q6HP PRN Administration Fever or Mild Pain (1-3) Clopidogrel Bisulfate 75 mg 01/14/25 09:20 01/14/25 10:17 Clopidogrel 75mg Tab PO 02/13/25 09:19 75 mg DAILY SUNNY Administration Diazepam 5 mg 01/13/25 18:46 01/13/25 18:57 Diazepam 10mg/2ml Syringe IV 01/13/25 18:47 5 mg ONCE ONE Administration Diazepam 5 mg 01/13/25 23:58 Diazepam 10mg/2ml Syringe IV 02/12/25 23:57 Q1HP PRN CIWA Score 8-15 Diazepam 10 mg 01/13/25 23:58 Diazepam 10mg/2ml Syringe IV 02/12/25 23:57 Q1HP PRN CIWA >16 Diazepam 5 mg 01/13/25 23:58 Diazepam 5mg Tablet PO 02/12/25 23:57 Q6HP PRN CIWA 2-7 Droperidol 2.5 mg 01/13/25 19:20 01/13/25 19:23 Droperidol 5mg/2ml Vial IV 01/13/25 19:21 2.5 mg ONCE ONE Administration Droperidol 2.5 mg 01/13/25 19:28 01/13/25 19:31 Droperidol 5mg/2ml Vial IV 01/13/25 19:29 2.5 mg ONCE ONE Administration Folic Acid 1 mg 01/14/25 09:00 01/14/25 08:49 Folic Acid 1mg Tablet PO 02/13/25 08:59 1 mg DAILY SUNNY Administration Sodium Chloride 1,000 mls @ 999 mls/hr 01/13/25 17:46 01/13/25 21:06 Sod Chlor 0.9% 1000ml Bag IV 01/13/25 18:46 Infused .Q1H1M ONE Infusion Sodium Chloride 1,000 mls @ 150 mls/hr 01/13/25 22:30 01/14/25 10:24 Sod Chlor 0.9% 1000ml Bag IV 01/14/25 22:29 Not Given .Q6H40M SUNNY Sodium Chloride 1,000 mls @ 999 mls/hr 01/13/25 22:47 01/14/25 00:56 Sod Chlor 0.9% 1000ml Bag IV 01/13/25 23:47 Infused .Q1H1M ONE Infusion Norepinephrine/Dextrose 8 mg in 250 mls @ 3.75 mls/hr 01/13/25 22:49 01/14/25 10:59 Levophed 8mg/250ml-D5w Premix IV 02/12/25 22:48 Infused .Q24H SUNNY Titration Protocol 2 MCG/MIN Thiamine HCl 100 mg/ Sodium 51 mls @ 204 mls/hr 01/13/25 23:39 01/14/25 00:56 Chloride IV 01/13/25 23:40 Infused ONCE ONE Infusion Iron Sucrose 200 mg/ Sodium 110 mls @ 220 mls/hr 01/14/25 09:09 01/14/25 10:24 Chloride IV 01/14/25 09:38 Infused ONCE ONE Infusion Iopamidol 160 ml 01/13/25 18:14 01/13/25 18:14 Iopamidol-370 (76%);100ml Bottle IV 01/13/25 18:15 160 ml ONCE ONE Administration Morphine Sulfate 2 mg 01/13/25 22:22 Morphine 2mg/Ml Syringe IV 02/12/25 22:21 Q4HP PRN Severe Pain (7-10) Multivitamins 1 each 01/14/25 17:00 Multivitamin Tablet PO 02/13/25 16:59 1700 [facility] Ondansetron HCl 4 mg 01/13/25 17:46 01/13/25 18:54 Ondansetron 4mg/2ml Vial IV 01/13/25 17:47 4 mg ONCE ONE Administration Ondansetron HCl 4 mg 01/13/25 22:22 Ondansetron 4mg/2ml Vial IV 02/12/25 22:21 Q8HP PRN Nausea And Vomiting Pantoprazole Sodium 40 mg 01/14/25 21:00 Pantoprazole 40mg Tablet PO 02/13/25 20:59 HS [facility] Sodium Chloride 10 ml 01/13/25 17:38 Sodium Chloride 0.9% 10ml Flush Syringe IV 02/12/25 17:37 NEEDED PRN Maintain IV Site Sodium Chloride 50 ml 01/13/25 18:14 01/13/25 18:14 0.9 % Sodium Chloride 50 Ml Vial IV 01/13/25 18:15 50 ml ONCE ONE Administration Sodium Chloride 10 ml 01/13/25 18:14 01/13/25 18:14 Sodium Chloride 0.9% 10ml Syr (Rad Only) IV 01/13/25 18:15 10 ml ONCE ONE Administration Tamsulosin HCl 0.4 mg 01/14/25 21:00 Tamsulosin 0.4mg Capsule PO 02/13/25 20:59 HS [facility] Tetanus/Reduced Diphtheria/Acell Pertussis 0.5 ml 01/13/25 17:41 01/13/25 18:54 Tet/Diphth/Pert-Adult 0.5ml Syringe IM 01/13/25 17:42 0.5 ml .ONCE ONE Administration Thiamine HCl 100 mg 01/14/25 09:00 01/14/25 08:31 Thiamine 100mg Tablet PO 01/16/25 09:01 100 mg DAILY SUNNY Administration Trimethoprim/Sulfamethoxazole 1 each 01/14/25 09:20 01/14/25 10:17 Sulfa/Trimethoprim 1 Tablet PO 01/24/25 09:19 1 each BID SUNNY Administration ORDERS Category Date Time Status CT angio abd/pel - TRAUMA Stat Cat Scan 01/13/25 17:[address] angio chest - dissection Stat Cat Scan 01/13/25 17:[address] angio head Stat Cat Scan 01/13/25 17:[address] angio neck Stat Cat Scan 01/13/25 17:[address] bony pelvis Stat Cat Scan 01/13/25 17:[address] cervical spine wo con Stat Cat Scan 01/13/25 17:[address] head/brain wo con Stat Cat Scan 01/13/25 17:[address] lumbar spine wo con Stat Cat Scan 01/13/25 17:[address] thoracic spine wo con Stat Cat Scan 01/13/25 17:39 Completed Femur XR left 2 views [XR femur LT 2V] Stat Exams 01/13/25 17:44 Completed Fibula/tibia XR left 2 views [XR tibia fibula LT 2V] Exams 01/13/25 17:39 Completed Stat Foot XR left minimum 3 views [XR foot LT min 3V] Stat Exams 01/13/25 17:39 Completed Knee XR left 3 views [XR knee LT 3V] Stat Exams 01/13/25 17:39 Completed XR ankle LT min 3V Stat Exams 01/13/25 17:39 Completed XR chest portable Stat Exams 01/13/25 17:38 Completed XR pelvis 1-2V Stat Exams 01/13/25 17:38 Completed Activated Partial Thrombo Time Stat Lab 01/13/25 17:30 Completed Complete Blood Count Auto Diff Routine Lab 01/13/25 22:18 Completed Complete Blood Count Auto Diff Stat Lab 01/13/25 17:30 Completed Comprehensive Metabolic Panel Stat Lab 01/13/25 17:30 Completed Ethyl Alcohol Stat Lab 01/13/25 17:30 Completed Lactic Acid Stat Lab 01/13/25 17:30 Completed Lipase Stat Lab 01/13/25 17:30 Completed Magnesium Routine Lab 01/13/25 22:18 Completed Phosphorous Routine Lab 01/13/25 22:18 Completed Prothrombin Time INR Stat Lab 01/13/25 17:30 Completed Troponin I Stat Lab 01/13/25 17:30 Completed UDS [Drug Screen,Urine] Stat Lab 01/13/25 20:04 Completed Urinalysis (cathed specimen) Stat Lab 01/13/25 22:14 Completed Urinalysis and Microscopic Stat Lab 01/13/25 20:04 Completed Medical Decision Narrative: Patient is a 64-year-old gentleman with unclear past medical history who appears intoxicated who presented to the emergency department as a trauma alert. On arrival, patient was hemodynamically stable with unremarkable vital signs. Patient was alert and oriented x 1, patient appeared intoxicated. ABC's otherwise intact. EFAST negative on arrival. Differential includes but not limited to: Intracranial hemorrhage, intracranial ischemia, intrathoracic pathology, intra-abdominal pathology, acute intoxication, dehydration, syncope, fractures, dislocations, sprains, strains, amongst others. Patient's labs were reviewed and interpreted by myself: CBC showed no leukocytosis, hemoglobin was stable. CMP was unremarkable except for mildly elevated anion gap and mild hyponatremia. Lactate mildly elevated at 2.6. Initial troponin less than 0.01. Urine drug screen negative, UA showed no evidence of infection. Alcohol level 260. Lipase normal. X-rays were reviewed and interpreted by myself including chest x-ray pelvis x-ray and left lower extremity x-rays and showed no acute bony pathology. CT head, CTA head and neck, CT chest CT abdomen CT bony pelvis were reviewed and interpreted by myself and showed no acute pathology. Patient had a large 3 cm posterior scalp hematoma and laceration that was cleaned extensively and stapled with 7 dianna. Patient became agitated and patient required droperidol and Versed in the emergency department. At this time, patient is metabolizing to freedom as patient's workup is otherwise negative for acute pathology. Patient Reporting that he needed to pee, bladder scan was obtained and showed greater than 1700. Vela catheter was placed and 1800 mL was drained. On further repeat assessment, patient still had not metabolized. Patient was still altered versus intoxicated. By the time I feel the patient warranted admission for further metabolization and altered mental status if present. I discussed the case with hospital medicine and patient was ultimately admitted to their service for further evaluation workup. Procedures Laceration Laceration 1: Site: scalp Size (cm): 4 Description: linear Depth: simple, single layer Pre-repair: wound explored and irrigated extensively Skin layer closed with: other (dianna) Number of sutures: 7 Critical Care Critical Care Time Critical Care Time: Yes Attestation: On 01/13/25, the high probability of a clinically significant, sudden or life threatening deterioration of the following system(s) required my full and direct attention, intervention and personal management. The time I documented below is in addition to time spent performing reported procedures but includes the following listed in this critical care notation. Total Time Total Critical Care Time: 35
[2025-01-13 18:00] LABS: Activated Partial Thrombo Time 28.2 seconds (22.8-30.6); Alanine Aminotransferase 12 U/L (12-78); Albumin Level 4.4 g/dl (3.5-5.0); Albumin/Globulin Ratio 1.3 (1.1-1.8); Alkaline Phosphatase 76 U/L (38-126); Anion Gap 19.9 mEq/L (5-15); Aspartate Amino Transferase 23 U/L (17-59); Bilirubin,Total 0.3 mg/dl (0.2-1.3); Blood Urea Nitrogen 9 mg/dl (9-20); Calcium 9.0 mg/dl (8.4-10.2); Carbon Dioxide 16 mmol/L (22.0-30.0); Chloride 102 mmol/L (98-107); Creatinine,Serum 1.00 mg/dl (0.66-1.25); Estimated Glomerular Filt Rate 76 ml/min (>60); GFR (African American) 92 ML/MIN (>60); Globulin 3.4 g/dL (1.3-3.2); Glucose 102 mg/dl (74-100); INR 1.04 (0.9-1.1); Lipase 65 U/L (23-300); Potassium 3.9 mmoL/L (3.5-5.1); Prothrombin Time 11.5 seconds (10.1-12.5); Sodium 134 mmol/L (136-145); Total Protein,Serum 7.8 g/dl (6.3-8.2)
[2025-01-13 18:14] LABS: Troponin I < 0.01 ng/ml (0.00-0.034)
[2025-01-13] MEDS: IOPAMIDOL-370 (76%);100ML BOTTLE 160 ML IV (18:14)
[2025-01-13] MEDS: 0.9 % SODIUM CHLORIDE 50 ML VIAL IV (18:14)
[2025-01-13] MEDS: SODIUM CHLORIDE 0.9% 10ML SYR (RAD ONLY) 10 ML IV (18:14)
[2025-01-13] MEDS: TET/DIPHTH/PERT-ADULT 0.5ML SYRINGE 0.5 ML IM (18:54)
[2025-01-13] MEDS: ONDANSETRON 4MG/2ML VIAL 4 MG IV (18:54)
[2025-01-13] MEDS: 0.9 % SODIUM CHLORIDE 1000ML 1,000 ML 999 ML IV ×2 (18:56→22:50)
[2025-01-13] MEDS: diazePAM 10MG/2ML SYRINGE 5 MG IV (18:57)
[2025-01-13] MEDS: droPERidol 5MG/2ML VIAL 2.5 MG IV ×2 (19:23→19:31)
[2025-01-13 20:09] LABS: Microscopic, Urine URINE MICROSCOPIC (MICROSCOPIC)
[2025-01-13 20:12] LABS: Bilirubin,Urine Negative (Negative); Color,Urine YELLOW (Yellow); Glucose,Urine (UA) Negative (Negative); Ketones,Urine Negative (Negative); Leukocyte Esterase,Urine Negative (Negative); PH,Urine 6.0 (5.0-8.5); Protein,Urine Negative (Negative); Specific Gravity, Urine <= 1.005 (1.005-1.030); Urobilinogen,Urine 0.2 EU/dl (0.2)
[2025-01-13 20:24] LABS: Bacteria,Urine Trace /lpf; WBC,Urine Occasional #/hpf (0-3)
[2025-01-13 20:32] LABS: Amphetamine/Metha Screen,Urine Negative ng/ml (<1000)
[2025-01-13 20:33] LABS: Barbiturates Screen,Urine Negative ng/ml (<200)
[2025-01-13 20:34] LABS: Benzodiazepines Screen,Urine Negative ng/ml (<200)
--- NOTE | 2025-01-13 20:34 | PC.NURSE ---
185- TDAP vaccination given per JUN. Patient unable to sign consent form due to altered mental status. Consent form dual signed by Alayna Bravo RN, and Paola Cox RN
[2025-01-13 20:36] LABS: Methadone Screen,Urine Negative ng/ml (<300); Opiate Screen,Urine Negative ng/ml (<300)
[2025-01-13 20:37] LABS: Phencyclidine Screen,Urine Negative ng/ml (<25)
[2025-01-13 21:41] LABS: Reflex Lactic Add Lactic Reflex
--- NOTE | 2025-01-13 22:13 | PC.NURSE ---
2200- patient endorsed needing to pee and having trouble doing so. bladder scan performed on patient which resulted >1723. Noy Tavarez MD notified. verbal orders given to anchor a hi. verbal orders repeated and correct. hi anchored at 2210. 2210- hi anchored. 850 drained, hi clamped to prevent bladder spasms. 2215- hi unclamped. 1000 more drained from the bladder. hi left to drain by gravity at this time. new UA collected and sent
--- NOTE | 2025-01-13 22:20 | EXP.HP ---
History of Present Illness *Admission Date: 01/13/25 *Reason for visit:: Fall with loss of consciousness and head trauma *History of present illness: Patient with past medical history of hypertension, peripheral vascular disease, restless leg syndrome, tobacco use. Patient witnessed fall with loss of consciousness and head trauma prior to admission. Patient brought to emergency room for evaluation. ATLS films done in emergency room show head contusion without intercerebral hemorrhage. Patient originally talkative with ED staff, but somnolent and borderline obtunded by time of my evaluation in emergency room. Patient breathing without respiratory distress, but extremely slow to awaken to loud verbal stimulation or vigorous sternal rub. Patient's blood pressure of 71/49 with MAP 49 during my evaluation in ED. Nursing states patient's awareness/consciousness gradually decreased during ED evaluation. I ordered 1 L normal saline bolus, 150 cc normal saline maintenance IV fluids, IV Levophed, and subsequently admitted patient to ICU for close hemodynamic monitoring. No family present during my evaluation of patient in emergency room. [facility] Disclaimer: The information contained in this section may have been updated after the patient was seen, as this information can be updated by other users. Medical History Amputation finger Peripheral vascular disease Other specified symptoms and signs involving the circulatory and respiratory systems Numbness and tingling Hypertension Social History Smoking Status: Current every day smoker tobacco type: cigarettes packs per day: 1 alcohol intake: former year quit: 2023 substance use type: former substance user, marijuana and crack/cocaine current occupational status: retired Travel in the last 8 weeks?: None Other Medical History Have you received the Flu Vaccine for this season: No Have you received the Pneumonia Vaccine: No Review of Systems Review of Systems Review of systems:: unable to obtain Review of systems (narrative): Patient's somnolent and borderline obtunded during my interview in emergency room Meds Home Medications and Allergies Home Medications ?Medication ?Instructions ?Recorded ?Confirmed ?Type acetaminophen 325 mg tablet mg PO ONCE PRN 12/05/24 01/07/25 History cholecalciferol (vitamin D3) 1,250 PO WEEKLY 12/05/24 01/07/25 History mcg (50,000 unit) capsule clopidogrel 75 mg tablet mg PO DAILY 12/05/24 01/07/25 History lisinopril 5 mg tablet mg PO DAILY 12/05/24 01/07/25 History melatonin 5 mg tablet 10 mg PO DAILY 12/05/24 01/07/25 History pantoprazole 20 mg tablet,delayed mg PO 12/05/24 01/07/25 History release salicylic acid 40 % topical patch 1 applic topical Q48H 12/05/24 01/07/25 History (Compound W) tamsulosin 0.4 mg capsule mg PO 12/05/24 01/07/25 History gentamicin 0.1 % topical cream 1 applic topical BID open wound 3 01/07/25 01/07/25 Rx weeks #30 grams sulfamethoxazole 800 1 tab PO BID cellulitis 10 days 01/07/25 01/07/25 Rx mg-trimethoprim 160 mg tablet #20 tabs (Bactrim DS) New Prescriptions to Start Prescriptions: Allergies Allergy/AdvReac Type Severity Reaction Status Date / Time aspirin Allergy Unknown Verified 01/07/25 13:19 allergy reaction Exam Data for Last 24 hours Vital signs and Labs for Last 24 Hours: Temp Pulse Resp BP Pulse Ox O2 Del Method 98.2 F 68 23 122/74 96 Room Air 01/13/25 18:26 01/13/25 21:00 01/13/25 21:00 01/13/25 21:00 01/13/25 21:00 01/13/25 19:15 Laboratory Results - last 24 hr 01/13/25 17:30: WBC 9.6, RBC 4.73, Hgb 11.9 L, Hct 36.8 L, MCV 77.8 L, MCH 25.2 L, MCHC 32.3, RDW 17.6 H, Plt Count 435 H, MPV 11.2 H, Neut % (Auto) 47.6, Lymph % (Auto) 43.4, [place] % (Auto) 7.2, Eos % (Auto) 1.1, Baso % (Auto) 0.5, Neut # (Auto) 4.6, Lymph # (Auto) 4.2, [place] # (Auto) 0.7, Eos # (Auto) 0.1, Baso # (Auto) 0.1, PT 11.5, INR 1.04, APTT 28.2, Sodium 134 L, Potassium 3.9, Chloride 102, Carbon Dioxide 16 L, Anion Gap 19.9 H, BUN 9, Creatinine 1.00, Estimated GFR 76, Est GFR ( Amer) 92, Glucose 102 H, Lactate 2.6 H, Calcium 9.0, Total Bilirubin 0.3, AST 23, ALT 12, Alkaline Phosphatase 76, Troponin I < 0.01, Total Protein 7.8, Albumin 4.4, Globulin 3.4 H, Albumin/Globulin Ratio 1.3, Lipase 65, Plasma/Serum Alcohol 260 H 01/13/25 20:04: Urine Color Yellow, Urine Appearance Clear, Urine pH 6.0, Ur Specific [place] <= 1.005, Urine Protein Negative, Urine Glucose (UA) Negative, Urine Ketones Negative, Urine Blood Negative, Urine Nitrate Negative, Urine Bilirubin Negative, Urine Urobilinogen 0.2, Ur Leukocyte Esterase Negative, Urine RBC None, Urine WBC Occasional, Ur Squamous Epith Cells None, Urine Bacteria Trace, Urine Opiates Screen Negative, Urine Methadone Screen Negative, Ur Barbituates Screen Negative, Ur Phencyclidine Scrn Negative, Ur Amphetamines Screen Negative, U Benzodiazepines Scrn Negative, Urine Cocaine Screen Negative, U Marijuana (THC) Screen Negative I & O for Last 24 hours: Intake & Output 01/10/25 01/11/25 01/12/25 01/13/25 23:59 23:59 23:59 23:59 Intake Total 1000 / 1000 Balance 1000 / 1000 Weight 79.379 kg Constitutional Constitutional: thin, chronically ill appearing, disheveled, somnolent and obtunded Comments: Extremely slow to respond to vigorous sternal rub and loud verbal stimulation *Routine HEENT Exam Head: Present normocephalic Eye: Present EOMI ENT: Present mucous membranes moist Comments: Laceration posterior scalp noted with reddish bleeding *Routine Neck Exam Neck: Present supple and full ROM *Routine Respiratory Exam Respiratory: Present CTA bilaterally *Routine Cardiovascular Exam Cardiovascular: Present RRR, Normal S1 and Normal S2 *Routine Abdominal Exam Abdominal: Present soft and normoactive bowel sounds *Routine Rectal Exam Rectal:: deferred *Routine Genitalia Exam Genitalia:: deferred *Routine Skin Exam Skin: Present intact and dry Assessment and Plan *Assessment and plan (1) Hypotension: Status: Acute Category: Medical Code(s): I95.9 - Hypotension, unspecified (2) Shock: Status: Acute Category: Medical Code(s): R57.9 - Shock, unspecified (3) Traumatic injury of head with loss of consciousness: Status: Acute Category: Medical Code(s): S06.9X9A - Unspecified intracranial injury with loss of consciousness of unspecified duration, initial encounter (4) Head contusion: Status: Acute Category: Medical Code(s): S00.93XA - Contusion of unspecified part of head, initial encounter (5) Intoxication: Status: Acute Category: Medical Plan 64-year-old inebriated male with witnessed loss of consciousness and head trauma brought to hospital for LOC/head trauma evaluation. Patient hypotensive in emergency room and diagnosed with hypotensive shock. Problems as listed below: Hypotensive shock: ? Patient lethargic, extremely somnolent and did not awaken to sternal/verbal stimulation during my ED evaluation. Patient's blood pressure 71/44 with MAP of 49. Believe patient heavily inebriated and somnolent, but will admit patient to ICU for volume resuscitation given MAP less than 49. Will perform infection workup including blood cultures, procalcitonin, respiratory panel, MRSA screen, urine Legionella/strep pneumo evaluation. Normal saline 1 L at 999, then maintenance IV fluid at 150 cc/h. Levophed 2 mcg/min and titrate to MAP greater than 65. LOC after head trauma: ? Patient reportedly talkative in ED, but very somnolent by time of my evaluation. Thoroughly reviewed ATLS imaging done in ED, noting head contusion on CT brain. No signs of intracerebral hemorrhage on CT imaging. Neurochecks and ICU. Supportive care. Morphine 2 mg IV every 4 as needed pain. Tylenol as needed pain or fever tach. Alcohol intoxication: ? Patient's blood alcohol level 260 at time of presentation. Start CIWA. Patient appears intoxicated which is possible etiology for head trauma with loss of consciousness. Thiamine 100 mg IV x 1. Once patient awakens folic acid 1 g p.o. daily. Thiamine 100 mg p.o. daily. Low threshold to use Versed gtt. and/or Precedex gtt. if patient develops delirium tremens/seizures during ICU stay. PPX: SCD Code: Full FEN Clear advas tolerated ? I spoke with the emergency room physician about patient today. ? Patient's hypotensive shock, loss of consciousness with head contusion, alcohol intoxication, and head trauma pose risk to life and bodily function. ? High risk prescription drug management including Levophed 2 mcg/min with titration to MAP greater than 60 I made decision to admit patient to hospital for hypotensive shock, and head trauma evaluation ? I reviewed all imaging/lab work as above including: WBC 9.6, Hgb 11.9, platelets 435 PT 11.5, INR 1.04, APTT 28.2 NA 134, K3.9, CL 93, CO2 16, BUN 9, CR 1, GLU 102 LA 2.6 Total bili 0.3, AST 23, ALT 12, alk phos 76 Troponin <0.01, ALB 4.4, globulin 2.4 UA pH 5.5, negative GLU/ketones/nitrate/bili/LE, patient WBC, trace bacteria UDS negative Serum alcohol level = 260 CT pelvis: No acute findings X-ray femur: No acute skeletal pathology Left tibia-fibula x-ray: No skeletal pathology CT thoracic spine: No acute fractures CTA neck: No occlusion or dissection, moderate right internal artery stenosis, mild left internal artery stenosis CT lumbar spine: No acute lumbar fracture Knee x-ray left: No acute pathology CTA head: No large vessel occlusion CT head: Moderate right occipital scalp contusion associated with superficial laceration/abrasion Left foot x-ray moderate osteoarthritis CTA chest: Multiple old left lateral rib fractures, ununited old commuted fracture distal one third left clavicle CT cervical spine no acute osseous findings Left foot x-ray: No acute findings CTA abdomen/pelvis no acute posttrauma findings in the abdominal pelvis Pelvis x-ray: No acute findings Chest x-ray: Subtle bilateral diffuse ground glass opacities. Questionable atypical pneumonia or chronic interstitial changes I spent 45 minutes of total critical care time on this patient myself, Isra Landrum MD 01/13/2025 Discharge planning: To be determined patient will spend at least 2 midnights in hospital during this hospitalization
[2025-01-13 22:25] LABS: Microscopic,Cath URINE MICROSCOPIC (MICROSCOPIC)
[2025-01-13 22:26] LABS: Appearance,Urine/Cath CLEAR (Clear); Bilirubin,Cath Negative (Negative); Blood, Urine/Cath Negative (Negative); Color,Urine/Cath YELLOW (Yellow); Glucose,Urine/Cath (UA) Negative (Negative); Ketones,Urine/Cath Negative (Negative); Leukocyte Esterase,Cath Negative (Negative); Nitrate,Cath Negative (Negative); PH,Urine/Cath 5.5 (5.0-8.5); Protein,Urine/Cath Negative (Negative); Specific Gravity, Urine/Cath <= 1.005 (1.005-1.030); Urobilinogen,Cath 0.2 EU/dl (0.2)
--- NOTE | 2025-01-13 22:31 | PC.NURSE ---
Addendum entered by Nany Spears RN 01/13/25 22:55: patient being tx to ICU and no longer to my care in [place] Original Note: report called to Zahira PORTILLO
[2025-01-13 22:33] LABS: WBC,Urine/Cath Occasional #/hpf (0-3)
[2025-01-13 22:34] LABS: Bacteria,Urine/Cath TRACE /lpf
--- NOTE | 2025-01-13 22:51 | PC.NURSE ---
NS bolus going via pressure bag at this time due to hypotension
[2025-01-13] MEDS: NOREPINEPHRINE BITARTRATE/D5W 8 MG/250 ML PLAST..BAG 3.75 MG IV (22:57)
[2025-01-14] VITALS (72 sets, daily range): BP systolic 94–168; BP diastolic 54–85; PULSE 57–84; RESP 14–26; TEMP 36.4–37.2; O2SAT 92–100; BMI 18.9
--- NOTE | 2025-01-14 00:03 | PC.NURSE ---
Patient arrived to ICU unit via stretcher from ED @22:34
[2025-01-14] MEDS: 0.9 % SODIUM CHLORIDE 1000ML 1,000 ML 150 ML IV ×2 (00:05→06:39)
[2025-01-14] MEDS: THIAMINE HCL 100 MG in 0.9 % SODIUM CHLORIDE 50 ML 204 MG IV (00:20)
[2025-01-14 00:43] LABS: Adenovirus,PCR Not Detected (NotDetected); Chlamydophila Pneumoniae, PCR Not Detected (NotDetected); Coronavirus 19, PCR Not Detected (NotDetected); Coronovirus HKU1,PCR Not Detected (NotDetected); Influenza A, PCR Not Detected (NotDetected); Influenza AH1, 2009 Not Detected (NotDetected); Influenza AH1, PCR Not Detected (NotDetected); Influenza AH3,PCR Not Detected (NotDetected); Influenza B, PCR Not Detected (NotDetected); Mycoplasma Pneumoniae, PCR Not Detected (NotDetected); Parainfluenza 1, PCR Not Detected (NotDetected); Parainfluenza 2, PCR Not Detected (NotDetected); Parainfluenza 3, PCR Not Detected (NotDetected); Parainfluenza 4, PCR Not Detected (NotDetected)
[2025-01-14 01:57] LABS: Procalcitonin 0.045 ng/mL (0.0-2.0)
--- NOTE | 2025-01-14 02:19 | PC.NURSE ---
admission completed by pts chart/summary. Pt AMS
[2025-01-14 06:09] LABS: Hematocrit 38.9 % (42.0-52.0); Hemoglobin 11.9 g/dL (14.1-18.0); Immature Granulocytes % 0.2 %; Mean Corpuscular HGB Conc 30.6 g/dL (31.8-35.4); Mean Corpuscular Hemoglobin 24.3 pg (27.0-31.2); Mean Corpuscular Volume 79.6 fl (80-94); Nucleated Red Blood Cells % 0 %; Platelet Count 394 K/mm3 (142-424); Red Blood Count 4.89 M/mm3 (4.60-6.20); Red Cell Distribution Width-SD 51.9 fL; White Blood Count 8.2 K/mm3 (4.8-10.8)
[2025-01-14 06:20] LABS: Anion Gap 14.4 mEq/L (5-15); Blood Urea Nitrogen 5 mg/dl (9-20); Calcium 8.5 mg/dl (8.4-10.2); Carbon Dioxide 19 mmol/L (22.0-30.0); Chloride 113 mmol/L (98-107); Creatinine Clearance Estimated 70 mL/min (50-200); Creatinine,Serum 0.80 mg/dl (0.66-1.25); Estimated Glomerular Filt Rate 98 ml/min (>60); GFR (African American) 119 ML/MIN (>60); Glucose 83 mg/dl (74-100); Magnesium 1.8 mg/dl (1.6-2.3); Phosphorous 4.3 mg/dl (2.5-4.5); Potassium 4.4 mmoL/L (3.5-5.1); Sodium 142 mmol/L (136-145)
[2025-01-14 08:26] LABS: Iron 37 ug/dL (49-181)
[2025-01-14] MEDS: THIAMINE 100MG TABLET 100 MG PO (08:31)
[2025-01-14] MEDS: ACETAMINOPHEN 325MG TAB 650 MG PO (08:31)
[2025-01-14 08:36] LABS: Total Iron Binding Capacity 346 ug/dL (261-462)
[2025-01-14] MEDS: FOLIC ACID 1MG TABLET 1 MG PO (08:49)
[2025-01-14 09:02] LABS: Ferritin 9.42 ng/ml (17.9-464)
--- NOTE | 2025-01-14 09:05 | HMH.PHAINT1 ---
Pharmacy Intervention Comments: MED LIST COMPARED TO FILL HX AND MD OFFICE VISIT NOTES.
--- NOTE | 2025-01-14 09:20 | HMH.PTEV ---
Physical Therapy Evaluation Rehab PT IP Evaluation Start: 01/14/25 08:06 Freq: ONCE Status: Active Protocol: Document 01/14/25 09:10 KARLOS (Rec: 01/14/25 09:20 KARLOS [id number]) Subjective/History History History Per H&P: *History of present illness: Patient with past medical history of hypertension, peripheral vascular disease, restless leg syndrome, tobacco use. Patient witnessed fall with loss of consciousness and head trauma prior to admission. Patient brought to emergency room for evaluation. ATLS films done in emergency room show head contusion without intercerebral hemorrhage. Patient originally talkative with ED staff, but somnolent and borderline obtunded by time of my evaluation in emergency room. Patient breathing without respiratory distress, but extremely slow to awaken to loud verbal stimulation or vigorous sternal rub. Patient's blood pressure of 71/ 49 with MAP 49 during my evaluation in ED. Nursing states patient's awareness/consciousness gradually decreased during ED evaluation. I ordered 1 L normal saline bolus, 150 cc normal saline maintenance IV fluids, IV Levophed, and subsequently admitted patient to ICU for close hemodynamic monitoring. No family present during my evaluation of patient in emergency room. Subjective Subjective Pt reports he is usually IND with his mobility using a rollator. Pt reports he lives at [place]. Pt reports there are steps at [place] but he can get to his room without stair negotiation. Pt reports one fall in past 30 days d/t loss of consciousness. [facility] How much help from another person do you currently need... Turning from your None back to your side while in a flat bed without using bedrails? Moving from lying on None back to sitting on the side of a flat bed without using bedrails? Moving to and from a None bed to a chair ( including a wheelchair)? Standing up from a None chair using your arms? (e.g., wheelchair, bedside chair) Walking in hospital A little room? Climbing 3-5 steps A little with a railing? Mobility Score 22 Mobility Level [facility] Mobility 7 Walk 25 feet or more Mobility Calculator Rehab PT IP Eval Objective Appearance Patient Behavior Appropriate,Cooperative Patient Orientation Person,Place Difficulty following none instructions Speech Pattern Clear Ambulation Patient Able to Yes Ambulate Ambulation Observation IP General Gait Narrow Based Gait Pattern Observation Ambulation Distance 45 (feet) Ambulation Assistive Standard Walker Device Ambulation Ability Supervision/Stand by Balance Ability to Arise Able, uses arms to help Sitting Balance Steady, safe Standing Balance Steady, wide stance Dynamic Sitting Good Balance Ability Dynamic Standing Fair Balance Ability Transfers Bed Transfer Ability Independent Sit to Stand Bed Supervision/Stand by Transfer Ability Rehab PT IP prob,goals,plan Problems Date of Evaluation: 01/14/25 PT IP Problems Transfers,Gait,Balance,Safety Rehab Potential Rehab Potential Good Plan PT Intervention Plan Transfers,Gait,Balance,Safety,Therapeutic Exercise Other Intervention 1-2 times Plan PT Plan Frequency Daily Duration LOS Discharge Goals Bed Transfer Ability Independent Sit to Stand Chair Independent Transfer Ability Ambulation Assistive Rolling Walker Device Ambulation Distance 100 (feet) Discharge Plan PT Discharge Plan Pt presents below baseline in functional mobility and balance. Pt demo'd all mobility with SBA/CGA. Pt did demo one self-corrected LOB when using standard walker around a turn. Pt may benefit from rehabilitation placement d/t impaired standing balance and safety when ambulating. However, pt may be appropriate to d/c home if he achieves his ambulation physical therapy goals while at [facility]. Eval Complexity Eval Charge Codes 80076 - Moderate Complexity PHYSICIAN CERTIFICATION: I certify the specified therapy services for Jovan York are required, authorized, and reviewed every 30 days.
[2025-01-14 09:40] LABS: Vitamin B12 384 pg/mL (239-931)
[2025-01-14] MEDS: IRON SUCROSE COMPLEX 200 MG in 0.9 % SODIUM CHLORIDE 100 ML 220 MG IV (09:44)
--- NOTE | 2025-01-14 09:52 | HMH.OTEV ---
OT Evaluation Rehab OT IP Evaluation Start: 01/14/25 08:06 Freq: ONCE Status: Active Protocol: Document 01/14/25 09:21 JONA (Rec: 01/14/25 09:51 JONA [id number]) Rehab OT IP Assessment Subjective History Patient with past medical history of hypertension, peripheral vascular disease, restless leg syndrome, tobacco use. Patient witnessed fall with loss of consciousness and head trauma prior to admission. Patient brought to emergency room for evaluation. ATLS films done in emergency room show head contusion without intercerebral hemorrhage. Patient originally talkative with ED staff, but somnolent and borderline obtunded by time of my evaluation in emergency room. Patient breathing without respiratory distress, but extremely slow to awaken to loud verbal stimulation or vigorous sternal rub. Patient's blood pressure of 71/ 49 with MAP 49 during my evaluation in ED. Nursing states patient's awareness/consciousness gradually decreased during ED evaluation. I ordered 1 L normal saline bolus, 150 cc normal saline maintenance IV fluids, IV Levophed, and subsequently admitted patient to ICU for close hemodynamic monitoring. No family present during my evaluation of patient in emergency room. Patient lives in at [facility]. Independent with ADLs and fx'l mobility prior to admission. Patient reported having a hx of falling. Subjective I can get up but I feel shaky. Instructed Patient on completing functional mobility within the room via droplet precaution of Rhinovirus. Instructed Patient on safety awareness to complete bed mobility, STS transfers and fx'l mobility to maneuver ~ 20ft within room per limit space. Objective Patient Orientation Person,Place,Time,Name,Birthday Right Upper WFL Extremity Gross ROM Left Upper Extremity WFL Gross ROM Bed Mobility bed mobility - supine/sit Assist Level Supervision/Stand by Transfer Training Sit/Stand/Step Transfer Assist Level Minimal x 1 (25% assist) Chair Transfer Minimal x 1 (25% assist) Ability Rehab OT IP prob,goals,plan Problems Date of Evaluation: 01/14/25 OT IP Problems Bed Mobility,Transfers,Balance,Self care,Safety Rehab Potential Rehab Potential Good Equipment Needs Assistive Devices Rolling / Wheeled Walker Plan OT intervention Plan Bed Mobility,Transfers,Balance,Self care,Safety, Therapeutic Exercise OT Plan Frequency Daily Duration LOS Discharge Goals Bed Mobility Ability Standby Assistance Sit to Stand Chair Contact Guard/Hand Hold Transfer Ability Chair Transfer Contact Guard/Hand Hold Ability Chair Transfer Sit to/from Ambulatory Technique Chair Transfer Rolling Walker Assistive Devices Discharge Plan OT Discharge Plan Recommend placement at this time. Patient is unsafe to return back to [facility] at this time per fx'l performance. Patient is a high fall risk with AE/ devices due to needing verbal cueing for safety. Patient to continue skilled OT IP services while here at [facility] medical d/c. Eval Complexity Eval Charge Codes 62573 - Low Complexity PHYSICIAN CERTIFICATION: I certify the specified therapy services for Jovan York are required, authorized, and reviewed every 30 days.
[2025-01-14] MEDS: CLOPIDOGREL 75MG TAB 75 MG PO (10:17)
[2025-01-14] MEDS: SULFA/TRIMETHOPRIM 1 TABLET 1 EACH PO (10:17)
--- NOTE | 2025-01-14 10:25 | P.DS_ITS ---
<Statement entered by Cosmo Becerra MD - 01/17/25 10:52> Agree with plan of care as outlined by the COMPOSITE LAYUP WORKER below. General Admission date:: 01/13/25 Discharge date: 01/14/25 HPI HPI HPI: Patient with past medical history of hypertension, peripheral vascular disease, restless leg syndrome, tobacco use. Patient witnessed fall with loss of consciousness and head trauma prior to admission. Patient brought to emergency room for evaluation. ATLS films done in emergency room show head contusion without intercerebral hemorrhage. Patient originally talkative with ED staff, but somnolent and borderline obtunded by time of my evaluation in emergency room. Patient breathing without respiratory distress, but extremely slow to awaken to loud verbal stimulation or vigorous sternal rub. Patient's blood pressure of 71/49 with MAP 49 during my evaluation in ED. Nursing states patient's awareness/consciousness gradually decreased during ED evaluation. I ordered 1 L normal saline bolus, 150 cc normal saline maintenance IV fluids, IV Levophed, and subsequently admitted patient to ICU for close hemodynamic monitoring. No family present during my evaluation of patient in emergency room. Hospital Course Hospital Course Hospital Course: Mr. York is a 64-year-old male who presented to the emergency department yesterday after a fall. Patient was brought to the emergency department via EMS due to syncopal episode and posterior head trauma from fall. Workup in the emergency department was significant for alcohol intoxication, head contusion without intracerebral hemorrhage, and hypotension. Patient was obtunded and breathing without respiratory distress but extremely slow to awaken. Patient was admitted due to low blood pressures and decreased stimulation. Patient was admitted to hospital medicine and ultimately placed briefly on a Levophed drip. Drip was discontinued shortly after admission after patient became more lucid. Maintenance fluids continued, blood pressure stabilized. Patient states that he drank for the first time in many months and must of overdone it . Patient incidentally did also test positive for rhinovirus. He appears asymptomatic. O2 saturation 95% on room air. CIWA's continue to be 0. Patient was observed overnight and continued with IV hydration. Patient's head laceration was stapled in the emergency department, neurochecks negative, CT scan showed no acute findings. Assessment day of discharge appears patient is back to baseline function. PT/OT consulted, state patient is at baseline functionality and may return home. Patient currently resides at [facility]. Patient states that he feels well, he states that he has an appointment with podiatry for a bunion infection that they have been treating. Patient has remained hemodynamically stable overnight and throughout the morning. Patient was found to be mildly anemic on admission, hemoglobin 11.9, hematocrit 38.9. Iron studies show iron saturation and ferritin are low. Patient given 1 dose of IV Venofer. Patient discharged home on supplemental p.o. iron daily. Discussed with patient the need for routine screening colonoscopy, patient states he has never had a colonoscopy. Patient does deny any overt signs of GI bleeding. Patient should follow-up with PCP for's scheduled outpatient screening colonoscopy. Patient is currently on Bactrim for his cellulitis of his left foot per podiatry, discussed with patient to hold lisinopril until Bactrim completion. Kidney function stable BUN 5, creatinine 0.8. CT pelvis: No acute findings X-ray femur: No acute skeletal pathology Left tibia-fibula x-ray: No skeletal pathology CT thoracic spine: No acute fractures CTA neck: No occlusion or dissection, moderate right internal artery stenosis, mild left internal artery stenosis CT lumbar spine: No acute lumbar fracture Knee x-ray left: No acute pathology CTA head: No large vessel occlusion CT head: Moderate right occipital scalp contusion associated with superficial laceration/abrasion Left foot x-ray moderate osteoarthritis CTA chest: Multiple old left lateral rib fractures, ununited old commuted fracture distal one third left clavicle CT cervical spine no acute osseous findings Left foot x-ray: No acute findings CTA abdomen/pelvis no acute posttrauma findings in the abdominal pelvis Pelvis x-ray: No acute findings Chest x-ray: Subtle bilateral diffuse ground glass opacities. Questionable atypical pneumonia or chronic interstitial changes Exam Data for Last 24 hours Vital signs and Labs for Last 24 Hours: Temp Pulse Resp BP Pulse Ox O2 Del Method O2 Flow Rate 98.3 F 72 24 119/63 95 Room Air 2 01/14/25 08:00 01/14/25 10:01/14/25 10:00 01/14/25 10:00 01/14/25 10:01/14/25 10:00 01/14/25 01:30 Laboratory Results - last 24 hr 01/13/25 00:34: Chlamy pneumoniae PCR Not detected, Adenovirus (PCR) Not detected, B. pertussis DNA (PCR) Not detected, Coronavirus OC43 (PCR) Not detected, Coronavirus HKU1 (PCR) Not detected, Coronavirus 229E (PCR) Not detected, SARS-CoV-2 (PCR) Not detected, Coronavirus NL63 (PCR) Not detected, Human Metapneumovir PCR Not detected, Influenza A (H1) PCR Not detected, Influ A (H1N1/) PCR Not detected, Influenza A (H3) PCR Not detected, Influenza Type A (PCR) Not detected, Influenza Type B (PCR) Not detected, M. pneumoniae (PCR) Not detected, Parainfluenza 1 (PCR) Not detected, Parainfluenza 2 (PCR) Not detected, Parainfluenza 3 (PCR) Not detected, Parainfluenza 4 (PCR) Not detected, RSV (PCR) Not detected, Entero/Rhino (PCR) Detected A 01/13/25 17:30: WBC 9.6, RBC 4.73, Hgb 11.9 L, Hct 36.8 L, MCV 77.8 L, MCH 25.2 L, MCHC 32.3, RDW 17.6 H, Plt Count 435 H, MPV 11.2 H, Neut % (Auto) 47.6, Lymph % (Auto) 43.4, [place] % (Auto) 7.2, Eos % (Auto) 1.1, Baso % (Auto) 0.5, Neut # (Auto) 4.6, Lymph # (Auto) 4.2, [place] # (Auto) 0.7, Eos # (Auto) 0.1, Baso # (Auto) 0.1, PT 11.5, INR 1.04, APTT 28.2, Sodium 134 L, Potassium 3.9, Chloride 102, Carbon Dioxide 16 L, Anion Gap 19.9 H, BUN 9, Creatinine 1.00, Estimated GFR 76, Est GFR ( Amer) 92, Glucose 102 H, Lactate 2.6 H, Calcium 9.0, Total Bilirubin 0.3, AST 23, ALT 12, Alkaline Phosphatase 76, Troponin I < 0.01, Total Protein 7.8, Albumin 4.4, Globulin 3.4 H, Albumin/Globulin Ratio 1.3, Lipase 65, Plasma/Serum Alcohol 260 H 01/13/25 20:04: Urine Color Yellow, Urine Appearance Clear, Urine pH 6.0, Ur Specific [place] <= 1.005, Urine Protein Negative, Urine Glucose (UA) Negative, Urine Ketones Negative, Urine Blood Negative, Urine Nitrate Negative, Urine Bilirubin Negative, Urine Urobilinogen 0.2, Ur Leukocyte Esterase Negative, Urine RBC None, Urine WBC Occasional, Ur Squamous Epith Cells None, Urine Bacteria Trace, Urine Opiates Screen Negative, Urine Methadone Screen Negative, Ur Barbituates Screen Negative, Ur Phencyclidine Scrn Negative, Ur Amphetamines Screen Negative, U Benzodiazepines Scrn Negative, Urine Cocaine Screen Negative, U Marijuana (THC) Screen Negative 01/13/25 22:14: Urine Color Yellow, Urine Appearance Clear, Urine pH 5.5, Ur Specific [place] <= 1.005, Urine Protein Negative, Urine Glucose (UA) Negative, Urine Ketones Negative, Urine Blood Negative, Urine Nitrate Negative, Urine Bilirubin Negative, Urine Urobilinogen 0.2, Ur Leukocyte Esterase Negative, Urine RBC None, Urine WBC Occasional, Ur Squamous Epith Cells None, Urine Bacteria Trace 01/14/25 00:27: Lactate 2.7 H, Procalcitonin 0.045 01/14/25 05:43: WBC 8.2, RBC 4.89, Hgb 11.9 L, Hct 38.9 L, MCV 79.6 L, MCH 24.3 L, MCHC 30.6 L, RDW 18.0 H, Plt Count 394, MPV 11.1 H, Neut % (Auto) 48.3, Lymph % (Auto) 41.0, [place] % (Auto) 7.7, Eos % (Auto) 2.1, Baso % (Auto) 0.7, Neut # (Auto) 3.9, Lymph # (Auto) 3.4, [place] # (Auto) 0.6, Eos # (Auto) 0.2, Baso # (Auto) 0.1, Sodium 142, Potassium 4.4, Chloride 113 H, Carbon Dioxide 19 L, Anion Gap 14.4, BUN 5 L D, Creatinine 0.80, Estimated Creat Clear 70, Estimated GFR 98, Est GFR ( Amer) 119 D, Glucose 83, Calcium 8.5, Phosphorus 4.3, Magnesium 1.8, Iron 37 L, TIBC 346, Iron Saturation 10.41303 L, Ferritin 9.42 L, Vitamin B12 384 I & O for Last 24 hours: Intake & Output 01/11/25 01/12/25 01/13/25 01/14/25 23:59 23:59 23:59 23:59 Intake Total 1003.626 / 9567.779 2300.005 / 2722.005 Output Total 2575 / 2575 Balance 1003.626 / 353.626 147.005 / 147.005 Weight 79.379 kg 64.864 kg Results Data Completed and Pending Labs on day of discharge: Labs from last 24 hours 01/14/25 01/14/25 01/13/25 05:43 00:27 22:14 WBC 8.2 RBC 4.89 Hgb 11.9 L Hct 38.9 L MCV 79.6 L MCH 24.3 L MCHC 30.6 L RDW 18.0 H Plt Count 394 MPV 11.1 H Neut % (Auto) 48.3 Lymph % (Auto) 41.0 [place] % (Auto) 7.7 Eos % (Auto) 2.1 Baso % (Auto) 0.7 Neut # (Auto) 3.9 Lymph # (Auto) 3.4 [place] # (Auto) 0.6 Eos # (Auto) 0.2 Baso # (Auto) 0.1 PT INR APTT Sodium 142 Potassium 4.4 Chloride 113 H Carbon Dioxide 19 L Anion Gap 14.4 BUN 5 L D Creatinine 0.80 Estimated Creat Clear 70 Estimated GFR 98 Est GFR ( Amer) 119 D Glucose 83 Lactate 2.7 H Calcium 8.5 Phosphorus 4.3 Magnesium 1.8 Iron 37 L TIBC 346 Iron Saturation 10.86265 L Ferritin 9.42 L Total Bilirubin AST ALT Alkaline Phosphatase Troponin I Total Protein Albumin Globulin Albumin/Globulin Ratio Lipase Vitamin B12 384 Procalcitonin 0.045 Urine Color Yellow Urine Appearance Clear Urine pH 5.5 Ur Specific [place] <= 1.005 Urine Protein Negative Urine Glucose (UA) Negative Urine Ketones Negative Urine Blood Negative Urine Nitrate Negative Urine Bilirubin Negative Urine Urobilinogen 0.2 Ur Leukocyte Esterase Negative Urine RBC None Urine WBC Occasional Ur Squamous Epith Cells None Urine Bacteria Trace Urine Opiates Screen Urine Methadone Screen Ur Barbituates Screen Ur Phencyclidine Scrn Ur Amphetamines Screen U Benzodiazepines Scrn Urine Cocaine Screen U Marijuana (THC) Screen Plasma/Serum Alcohol Chlamy pneumoniae PCR Adenovirus (PCR) B. pertussis DNA (PCR) Coronavirus OC43 (PCR) Coronavirus HKU1 (PCR) Coronavirus 229E (PCR) SARS-CoV-2 (PCR) Coronavirus NL63 (PCR) Human Metapneumovir PCR Influenza A (H1) PCR Influ A (H1N1/) PCR Influenza A (H3) PCR Influenza Type A (PCR) Influenza Type B (PCR) M. pneumoniae (PCR) Parainfluenza 1 (PCR) Parainfluenza 2 (PCR) Parainfluenza 3 (PCR) Parainfluenza 4 (PCR) RSV (PCR) Entero/Rhino (PCR) 01/13/25 01/13/25 01/13/25 20:04 17:30 00:34 WBC 9.6 RBC 4.73 Hgb 11.9 L Hct 36.8 L MCV 77.8 L MCH 25.2 L MCHC 32.3 RDW 17.6 H Plt Count 435 H MPV 11.2 H Neut % (Auto) 47.6 Lymph % (Auto) 43.4 [place] % (Auto) 7.2 Eos % (Auto) 1.1 Baso % (Auto) 0.5 Neut # (Auto) 4.6 Lymph # (Auto) 4.2 [place] # (Auto) 0.7 Eos # (Auto) 0.1 Baso # (Auto) 0.1 PT 11.5 INR 1.04 APTT 28.2 Sodium 134 L Potassium 3.9 Chloride 102 Carbon Dioxide 16 L Anion Gap 19.9 H BUN 9 Creatinine 1.00 Estimated Creat Clear Estimated GFR 76 Est GFR ( Amer) 92 Glucose 102 H Lactate 2.6 H Calcium 9.0 Phosphorus Magnesium Iron TIBC Iron Saturation Ferritin Total Bilirubin 0.3 AST 23 ALT 12 Alkaline Phosphatase 76 Troponin I < 0.01 Total Protein 7.8 Albumin 4.4 Globulin 3.4 H Albumin/Globulin Ratio 1.3 Lipase 65 Vitamin B12 Procalcitonin Urine Color Yellow Urine Appearance Clear Urine pH 6.0 Ur Specific [place] <= 1.005 Urine Protein Negative Urine Glucose (UA) Negative Urine Ketones Negative Urine Blood Negative Urine Nitrate Negative Urine Bilirubin Negative Urine Urobilinogen 0.2 Ur Leukocyte Esterase Negative Urine RBC None Urine WBC Occasional Ur Squamous Epith Cells None Urine Bacteria Trace Urine Opiates Screen Negative Urine Methadone Screen Negative Ur Barbituates Screen Negative Ur Phencyclidine Scrn Negative Ur Amphetamines Screen Negative U Benzodiazepines Scrn Negative Urine Cocaine Screen Negative U Marijuana (THC) Screen Negative Plasma/Serum Alcohol 260 H Chlamy pneumoniae PCR Not detected Adenovirus (PCR) Not detected B. pertussis DNA (PCR) Not detected Coronavirus OC43 (PCR) Not detected Coronavirus HKU1 (PCR) Not detected Coronavirus 229E (PCR) Not detected SARS-CoV-2 (PCR) Not detected Coronavirus NL63 (PCR) Not detected Human Metapneumovir PCR Not detected Influenza A (H1) PCR Not detected Influ A (H1N1/09) PCR Not detected Influenza A (H3) PCR Not detected Influenza Type A (PCR) Not detected Influenza Type B (PCR) Not detected M. pneumoniae (PCR) Not detected Parainfluenza 1 (PCR) Not detected Parainfluenza 2 (PCR) Not detected Parainfluenza 3 (PCR) Not detected Parainfluenza 4 (PCR) Not detected RSV (PCR) Not detected Entero/Rhino (PCR) Detected A DS: Diagnosis Discharge Diagnosis (1) Hypotension: Status: Acute Code(s): I95.9 - Hypotension, unspecified (2) Shock: Status: Acute Code(s): R57.9 - Shock, unspecified (3) Traumatic injury of head with loss of consciousness: Status: Acute Code(s): S06.9X9A - Unspecified intracranial injury with loss of consciousness of unspecified duration, initial encounter (4) Head contusion: Status: Acute Code(s): S00.93XA - Contusion of unspecified part of head, initial encounter (5) Intoxication: Status: Acute (6) Anemia: Status: Acute Code(s): D64.9 - Anemia, unspecified Meds Home Medications and Allergies Home Medications ?Medication ?Instructions ?Recorded ?Confirmed ?Type cholecalciferol (vitamin D3) 1,250 50,000 unit PO WEEK LY 12/05/24 01/14/25 History mcg (50,000 unit) capsule clopidogrel 75 mg tablet 75 mg PO DAILY 12/05/2412/18 History lisinopril 5 mg tablet 5 mg PO DAILY 12/05/2401/14 History Held on 01/14/25. Instructions: until PCP f/u melatonin 5 mg tablet 10 mg PO HS 12/05/24 5 History pantoprazole 20 mg tablet,delayed 20 mg PO HS 12/05/24 01/14/25 History release salicylic acid 40 % topical patch 1 applic topical Q48 H 12/05/24 01/14/25 History (Compound W) tamsulosin 0.4 mg capsule 0.4 mg PO DAILY 12/05/24 History gentamicin 0.1 % topical cream 1 applic topical BID op en wound 3 01/07/25 01/14/25 Rx weeks #30 grams sulfamethoxazole 800 1 tab PO BID cellulitis 10 d ays 01/07/25 01/14/25 Rx mg-trimethoprim 160 mg tablet #20 tabs (Bactrim DS) ferrous sulfate 325 mg (65 mg 325 mg PO DAILY #30 tabs 01/14/25 Rx iron) tablet (Iron (ferrous sulfate)) New Prescriptions to Start Prescriptions: ferrous sulfate [Iron (ferrous sulfate)] Stephanie Joshi Allergies Allergy/AdvReac Type Severity Reaction Status Date / Time aspirin Allergy Unknown Verified 01/07/25 13:19 allergy reaction Discharge Plan Disposition Patient Disposition: Home, Self-Care Condition: Good Follow up Plan Follow up with: Belinda Brandt APRN [Nurse Practitioner, Family Practice] - 1 week Prescriptions/Medication Reconciliation: New ferrous sulfate [Iron (ferrous sulfate)] 325 mg (65 mg iron) tablet 325 mg PO DAILY Qty: 30 0RF Continued clopidogrel 75 mg tablet 75 mg PO DAILY pantoprazole 20 mg tablet,delayed release (DR/EC) 20 mg PO HS tamsulosin 0.4 mg capsule 0.4 mg PO DAILY Compound W 40 % adhesive patch,medicated 1 applic topical Q48H cholecalciferol (vitamin D3) 1,250 mcg (50,000 unit) capsule 50,000 unit PO WEEKLY melatonin 5 mg tablet 10 mg PO HS gentamicin 0.1 % cream 1 applic topical BID 21 Days Qty: 30 1RF sulfamethoxazole-trimethoprim [Bactrim DS] 800-160 mg tablet 1 tab PO BID 10 Days Qty: 20 0RF Held lisinopril 5 mg tablet 5 mg PO DAILY Hold Instructions: until PCP f/u Problem Reconciliation Problems Reviewed?: Yes Patient Discharge Instructions ACTIVITY: Continue current activity and Ambulate as tolerated DIET: continue same diet Patient Instructions: DI for Alcohol Use Disorder, How to Prevent Falls Print Language: Jordanian Providers Primary Care Provider: Provider,Referral Admit Provider: Filiberto Topete Attending Provider: Filiberto Topete
--- NOTE | 2025-01-14 11:41 | SW/DCPLANNER ---
Patient currently resides at [facility]. Per repeat OT patient is stable for discharge back to [facility]. Jimmy Joshi stated that patient is medically stable for discharge today. I have updated Kaycee albrecht/ [facility] that the plan is for patient to return today.
--- NOTE | 2025-01-14 13:52 | PC.NURSE ---
Report called to Meghan @ [facility]
--- NOTE | 2025-01-15 10:25 | SW/DCPLANNER ---
Spoke with patient's care professional. Patient's care professional stated that he is doing good. Patient's care professional stated that they are aware of his upcoming appointments. Patient's care professional stated that they were able to get his new medicine. Patient's care professional stated that they have no concerns or questions at this time. Valery Diallo
[2025-01-17 21:16] LABS: Legionella pneumophila Urinary Negative (Negative)
--- NOTE | 2025-01-18 14:56 | PEERSUPPORT ---
Peer Support Note Patient Information Patient Information: DOS: 01/14/2025 Pt reported he was not an everyday drinker. He says he was stressed and aggratvated by the people he lives with at [place]. He is not satisfied with living there. He does share that he just started drinking to stop it all and not let it bother him. He is interested in resources for meetings or somewhere to go to sabianism. Ps provided him with resources to local meetings at [facility] for AA meetings that also serve dinner every . Potential Barriers: -Transportation -Lack of connection to recovery community or positive support -No cell phone Harm Reduction: -Connection to Bridge Support -Education on Alcohol Use disorder -Treatment referrals/resources to local meetings -Local meetings/Within walking distance Ps provided contact information and resources offering ongoing recovery focused support.
== END 2025-01-14 14:25 | disposition home or self-care (01) ==
LOC: ER 20:32 → 2ND 22:21 → ICU 22:42
PROVIDERS: Internal Medicine; Student in an Organized Health Care Education/Training Program; Admitting Provider Internal Medicine Adolescent Medicine; Emergency Provider Student in an Organized Health Care Education/Training Program; Visit Provider Internal Medicine Adolescent Medicine
DX: F10.129 Alcohol abuse with intoxication, unspecified (principal); S06.9X9A Unspecified intracranial injury with loss of consciousness of unspecified duration, initial encounter; R57.0 Cardiogenic shock; S42.032A Displaced fracture of lateral end of left clavicle, initial encounter for closed fracture; S01.01XA Laceration without foreign body of scalp, initial encounter; D64.9 Anemia, unspecified; I10 Essential (primary) hypertension; I73.9 Peripheral vascular disease, unspecified; L03.116 Cellulitis of left lower limb; B34.8 Other viral infections of unspecified site; F17.210 Nicotine dependence, cigarettes, uncomplicated; Y90.8 Blood alcohol level of 240 mg/100 ml or more; Z23 Encounter for immunization; Z88.6 Allergy status to analgesic agent; Z89.029 Acquired absence of unspecified finger(s); Z79.02 Long term (current) use of antithrombotics/antiplatelets; W22.09XA Striking against other stationary object, initial encounter
CPT/HCPCS: 0223U; 12002; 51702; 70450; 70496; 70498; 71045; 71275; 72125; 72128; 72131; 72170; 72192; 73552; 73562; 73590; 73610; 73630; 74174; 80048; 80053; 80307; 80320; 81001; 82607; 82728; 83540; 83550; 83605; 83690; 83735; 84100; 84145; 84484; 85025; 85610; 85730; 87040; 87081; 87449; 90715; 93005; 96361; 96365; 96366; 96367; 96372; 96375; 96376; 97162; 97165; 97530; 99285; 99291; G0378; G0390; J1756; J1790; J2405; J3360; J3411; J7030; Q9967

== ENCOUNTER 2025-01-23 08:20 | Day surgery (SDC) | payer MEDICAID, SELFPAY ==
[2025-01-23] VITALS (9 sets, daily range): BP systolic 95–164; BP diastolic 58–92; PULSE 64–79; RESP 18–24; TEMP 36.6–36.7; O2SAT 90–98; BMI 21.4
--- NOTE | 2025-01-23 08:38 | ECG_ITS ---
APPROVED REPORT Exam: Resting ECG HR:69 bpm ECG Measurements Heart Rate 69 AXES NJ 145 P 57 QRSd 105 QRS 86 QT 386 T 75 QTc 406 Conclusion SINUS RHYTHM NORMAL ECG Electronically signed by : BALTA MILLS, 01/23/2025 16:16:14
--- NOTE | 2025-01-23 08:40 | ED_ITS ---
Discharge Plan Disposition Patient Disposition: Admitted Clinical Impressions Clinical Impression: Acute esophageal obstruction Discharge ED Provider: Michael Cuello General Adult HPI General Chief complaint: Skin/Abscess/Foreign Body Stated complaint: Choking Time Seen by Provider: 01/23/25 08:26 Mode of Arrival: EMS Source of Information: Patient and EMS Description of Symptoms (Recalled from ER Triage Doc. by RN): EMS was called out for pt having trouble swallowing. EMS reports that the pt had beef stew last night and thinks that he has some stuck in his throat. A&O x4. pt reports that he was eating dinner last night around 16:30 and he got a piece of beef stew stuck in his throat. pt was unable to take his medications last night and was up all night spitting trying to get the piece of beef up. Denies shortness of breath and chest pain at this time. History of Present Illness HPI narrative: Patient is 64-year-old male with past medical history of abnormal ankle-brachial index pending stenting, restless leg syndrome, smoker who presents emergency department for evaluation of dysphagia. Yesterday he swallowed beef stew and since then has been unable to swallow completely. This morning he could not tolerate water with morning meds at [facility] which became concerning to him and he presents here for continued evaluation. No other acute complaints at this time. Please note that above description of symptoms, in this electronic medical record under categorization of recalled from ER triage doctor by RN are reflective of an initial nursing assessment, however, is not reflective of my full history and physical exam that was personally taken and clarified. Consequentially, this preceding description of symptoms, which may include the patient's categorized chief complaint in the EMR, do not reflect my personal clinical impression, and the ultimate description of history of present illness and patient stated complaints should be deferred to this section of the note. Unless stated otherwise or congruent with this section of the note, additional signs, symptoms, or incongruence should be interpreted as inaccurate with my clinical impression. Related Data Home Medications ?Medication ?Instructions ?Recorded ?Confirmed cholecalciferol (vitamin D3) 1,250 50,000 unit PO WEEK LY 12/05/24 01/22/25 mcg (50,000 unit) capsule clopidogrel 75 mg tablet 75 mg PO DAILY 12/05/2411/09 lisinopril 5 mg tablet 5 mg PO DAILY 12/05/2401/22 Held on 01/14/25. Instructions: until PCP f/u melatonin 5 mg tablet 10 mg PO HS 12/05/24 5 pantoprazole 20 mg tablet,delayed 20 mg PO HS 12/05/24 01/22/25 release salicylic acid 40 % topical patch 1 applic topical Q48 H 12/05/24 01/22/25 (Compound W) tamsulosin 0.4 mg capsule 0.4 mg PO DAILY 12/05/2411/09 Previous Rx's ?Medication ?Instructions ?Recorded gentamicin 0.1 % topical cream 1 applic topical BID op en wound 3 01/07/25 weeks #30 grams sulfamethoxazole 800 1 tab PO BID cellulitis 10 d ays 01/07/25 mg-trimethoprim 160 mg tablet #20 tabs (Bactrim DS) ferrous sulfate 325 mg (65 mg 325 mg PO DAILY #30 tabs 01/14/25 iron) tablet (Iron (ferrous sulfate)) Allergies Allergy/AdvReac Type Severity Reaction Status Date / Time aspirin Allergy Unknown Verified 01/22/25 08:57 allergy reaction [facility] Disclaimer: The information contained in this section may have been updated after the patient was seen, as this information can be updated by other users. Medical History Dyspnea Abnormal stress test Amputation finger Peripheral vascular disease Other specified symptoms and signs involving the circulatory and respiratory systems Numbness and tingling Hypertension Family History Other No significant family history Social History Smoking Status: Current every day smoker tobacco type: cigarettes packs per day: 1 alcohol intake: former year quit: 2023 substance use type: former substance user, marijuana and crack/cocaine current occupational status: retired Travel in the last 8 weeks?: None Have you lived/traveled outside US in past 30 days?: No Contact w/someone who lives/traveled outside US past 30 days?: No Exposure to someone with infectious disease in past 14 days?: No Do you have a fever (greater than 100.4 F or 38 C)?: No Have you tested positive for COVID-19?: No Exposed to someone with COVID-19 in past 14 days?: No Do you have a sore throat?: No Do you have a cough?: No Do you have any weakness?: No Do you have any diarrhea?: No Are you experiencing any unusual bleeding?: No Do you have any muscle aches/pain?: No Do you have any abdominal pain?: No Are you experiencing loss of taste or smell?: No Other Medical History Have you received the Flu Vaccine for this season: No Have you received the Pneumonia Vaccine: No ROS Obtained: Yes Systems reviewed as appropriate & no additional complaints except as documented Physical Exam General General appearance: alert and in no apparent distress Head Head exam: atraumatic and normocephalic Eye Eye exam: Present PERRL and EOMI ENT ENT exam: Present normal oropharynx and mucous membranes moist Neck Neck exam: Present normal inspection Chest Chest inspection: Present normal inspection and symmetric chest wall rise Respiratory Respiratory exam: Present normal lung sounds bilaterally; Absent respiratory distress Cardiovascular Cardiovascular exam: Present regular rate and normal rhythm Abdominal Exam Abdominal exam: Present soft; Absent tenderness Extremities Exam Extremities exam: Present normal inspection Neurological Exam Neurological exam: Present alert Psychiatric Psychiatric exam: Present normal affect Skin Skin exam: Present warm and dry Medical Decision Making Medical Records Screening: Per USPSTF and CDC recommendations, given the prevalence of disease in our region, it is our hospital?s policy to screen for HIV and viral Hepatitis for all patients aged 18 and over and those with ongoing risk factors. Thai Inquiry Pt receiving controlled substance: No Vital Signs: 01/23/25 08:21 01/23/25 08:21 01/23/25 08:35 Temperature 98 F 98 F Temperature Source Oral Oral Pulse Rate 76 Pulse Rate [Right] 76 Respiratory Rate 18 18 Blood Pressure 150/92 H Blood Pressure [Left Arm] 150/92 H Blood Pressure Mean [Left Arm] 111 Blood Pressure Source Automatic Cuff Blood Pressure Source [Left Arm] Automatic Cuff Blood Pressure Position Supine Blood Pressure Position [Left Arm] Supine 02 Sat by Pulse Oximetry 98 98 98 Oxygen Delivery Method Room Air Room Air Room Air 01/23/25 08:48 Temperature 98.0 F Temperature Source Oral Pulse Rate Pulse Rate [Right] 75 Respiratory Rate 18 Blood Pressure Blood Pressure [Left Arm] 150/92 H Blood Pressure Mean [Left Arm] 111 Blood Pressure Source Blood Pressure Source [Left Arm] Automatic Cuff Blood Pressure Position Blood Pressure Position [Left Arm] Sitting 02 Sat by Pulse Oximetry 98 Oxygen Delivery Method Room Air Lab Data Lab Results 01/23/25 08:36: WBC 9.4, RBC 5.39, Hgb 13.6 L, Hct 43.6, MCV 80.9, MCH 25.2 L, M CHC 31.2 L, RDW 19.2 H, Plt Count 421, MPV 11.4 H, Neut % (Auto) 61.4, Lymph % (Auto) 29.0, [place] % (Auto) 7.4, Eos % (Auto) 1.5, Baso % (Auto) 0.5, Neut # (Auto) 5.8, Lymph # (Auto) 2.7, [place] # (Auto) 0.7, Eos # (Auto) 0.1, Baso # (Auto) 0.1 01/23/25 08:36 Orders (Tests/Meds): ED MEDICATIONS Generic Name Dose Route Start Last Admin Trade Name Freq PRN Reason Stop Dose Admin Glucagon 1 mg 01/23/25 08:45 10 09:00 Glucagon 1 Mg/Ml Vial IV 10 08:46 1 mg ONCE ONE Administration ORDERS Category Date Time Status Gastroenterology Consult [Consult to Gastroenterology] Cons 01/23/25 08:46 Active [CONS] Routine CBC w/Auto Diff [Complete Blood Count Auto Diff] Stat Lab 01/23/25 08:36 Completed CMP [Comprehensive Metabolic Panel] Stat Lab 01/23/25 08:36 Received HIV Combo Stat Lab 01/23/25 08:36 Received Hepatitis C Ab Qual. W/ RFX Stat Lab 01/23/25 08:36 Received EKG Request [ECG Request] Stat Y 01/23/25 08:26 Ordered ECG Data Tracing #1: Independently interpreted by me rate of 69, rhythm is regular, axis is normal, no ST elevation in anatomical contiguous leads, QTc 406. Medical Decision Narrative: In summary patient is a 64-year-old male with past medical history described above presents emergency department for suspected food bolus. Patient is hemodynamically stable nontoxic-appearing upon arrival, afebrile. Managing his secretions so by definition I suspect he has an incomplete food bolus obstruction that may be pending full obstruction. Patient will ironically require endoscopic intervention however 1 mg of IV glucagon will be administered to attempt to relax the lower esophageal sphincter. The case was discussed with Dr. Martinez who agrees with management thus far and patient will proceed for endoscopic intervention at this time. Critical Care Critical Care Time Critical Care Time: No
--- NOTE | 2025-01-23 08:42 | PC.NURSE ---
dr aponte speaking with dr goss
[2025-01-23 08:52] LABS: Hematocrit 43.6 % (42.0-52.0); Hemoglobin 13.6 g/dL (14.1-18.0); Immature Granulocytes % 0.2 %; Mean Corpuscular HGB Conc 31.2 g/dL (31.8-35.4); Mean Corpuscular Hemoglobin 25.2 pg (27.0-31.2); Mean Corpuscular Volume 80.9 fl (80-94); Nucleated Red Blood Cells % 0 %; Platelet Count 421 K/mm3 (142-424); Red Blood Count 5.39 M/mm3 (4.60-6.20); Red Cell Distribution Width-SD 52.8 fL; White Blood Count 9.4 K/mm3 (4.8-10.8)
[2025-01-23] MEDS: GLUCAGON 1 MG/ML VIAL IV (09:00)
--- NOTE | 2025-01-23 09:53 | EXP.HP ---
History of Present Illness *Admission Date: 01/23/25 *Reason for visit:: Food impaction *History of present illness: Mr. York is a 64-year-old gentleman who is here for diagnostic/therapeutic EGD secondary to a food impaction. The patient reports eating beef stew yesterday and a piece of beef got hung with food impaction and he is unable to tolerate liquids or his saliva. He came to the ED. Glucagon was administered. The patient does report more frequent dysphagia with intermittent food hanging. He is often able to swallow this down with liquids. The patient is missing most of his teeth including molar teeth and has difficulty chewing/difficult mastication. The patient reports no heartburn, reflux or weight loss. This is his first EGD. The examination is deemed medically necessary for EGD. The patient has been seen, interviewed and examined prior to the procedure by both myself and the anesthesia provider. [facility] Disclaimer: The information contained in this section may have been updated after the patient was seen, as this information can be updated by other users. Medical History Dyspnea Abnormal stress test Amputation finger Peripheral vascular disease Other specified symptoms and signs involving the circulatory and respiratory systems Numbness and tingling Hypertension Family History Other No significant family history Social History Smoking Status: Current every day smoker tobacco type: cigarettes packs per day: 1 alcohol intake: former year quit: 2023 substance use type: former substance user, marijuana and crack/cocaine current occupational status: retired Travel in the last 8 weeks?: None Have you lived/traveled outside US in past 30 days?: No Contact w/someone who lives/traveled outside US past 30 days?: No Exposure to someone with infectious disease in past 14 days?: No Do you have a fever (greater than 100.4 F or 38 C)?: No Have you tested positive for COVID-19?: No Exposed to someone with COVID-19 in past 14 days?: No Do you have a sore throat?: No Do you have a cough?: No Do you have any weakness?: No Do you have any diarrhea?: No Are you experiencing any unusual bleeding?: No Do you have any muscle aches/pain?: No Do you have any abdominal pain?: No Are you experiencing loss of taste or smell?: No Other Medical History Have you received the Flu Vaccine for this season: No Have you received the Pneumonia Vaccine: No Review of Systems Review of Systems Review of systems (narrative): Negative *Cardiovascular Comments: Negative *Gastrointestinal Comments: Negative *Genitourinary Comments: Negative *Musculoskeletal Comments: Negative *Neurologic Comments: Negative Meds Home Medications and Allergies Home Medications ?Medication ?Instructions ?Recorded ?Confirmed ?Type cholecalciferol (vitamin D3) 1,250 50,000 unit PO WEEKLY 12/05/24 01/22/25 History mcg (50,000 unit) capsule clopidogrel 75 mg tablet 75 mg PO DAILY 12/05/24 01/22/25 History lisinopril 5 mg tablet 5 mg PO DAILY 12/05/24 01/22/25 History Held on 01/14/25. Instructions: until PCP f/u melatonin 5 mg tablet 10 mg PO HS 12/05/24 01/22/25 History pantoprazole 20 mg tablet,delayed 20 mg PO HS 12/05/24 01/22/25 History release salicylic acid 40 % topical patch 1 applic topical Q48H 12/05/24 01/22/25 History (Compound W) tamsulosin 0.4 mg capsule 0.4 mg PO DAILY 12/05/24 01/22/25 History gentamicin 0.1 % topical cream 1 applic topical BID open wound 3 01/07/25 01/22/25 Rx weeks #30 grams sulfamethoxazole 800 1 tab PO BID cellulitis 10 days 01/07/25 01/22/25 Rx mg-trimethoprim 160 mg tablet #20 tabs (Bactrim DS) ferrous sulfate 325 mg (65 mg 325 mg PO DAILY #30 tabs 01/14/25 01/22/25 Rx iron) tablet (Iron (ferrous sulfate)) New Prescriptions to Start Prescriptions: Allergies Allergy/AdvReac Type Severity Reaction Status Date / Time aspirin Allergy Unknown Verified 01/22/25 08:57 allergy reaction Exam Data for Last 24 hours Vital signs and Labs for Last 24 Hours: Temp Pulse Resp BP Pulse Ox O2 Del Method 98 F 70 18 139/89 98 Room Air 01/23/25 09:03 01/23/25 09:03 01/23/25 09:03 01/23/25 09:03 01/23/25 08:48 01/23/25 09:03 Laboratory Results - last 24 hr 01/23/25 08:36: WBC 9.4, RBC 5.39, Hgb 13.6 L, Hct 43.6, MCV 80.9, MCH 25.2 L, MCHC 31.2 L, RDW 19.2 H, Plt Count 421, MPV 11.4 H, Neut % (Auto) 61.4, Lymph % (Auto) 29.0, [place] % (Auto) 7.4, Eos % (Auto) 1.5, Baso % (Auto) 0.5, Neut # (Auto) 5.8, Lymph # (Auto) 2.7, [place] # (Auto) 0.7, Eos # (Auto) 0.1, Baso # (Auto) 0.1 I & O for Last 24 hours: Intake & Output 01/20/25 01/21/25 01/22/25 01/23/25 23:59 23:59 23:59 23:59 Weight 145 lb *Routine HEENT Exam Head: Present normocephalic Eye: Present EOMI and PERRL ENT: Present mucous membranes moist *Routine Neck Exam Neck: Present supple *Routine Respiratory Exam Respiratory: Present CTA bilaterally *Routine Cardiovascular Exam Cardiovascular: Present RRR *Routine Abdominal Exam Abdominal: Present soft and normoactive bowel sounds; Absent tenderness *Routine Rectal Exam Rectal:: deferred *Routine Genitalia Exam Genitalia:: deferred *Routine Extremities Exam Extremities: Absent cyanosis, clubbing or edema *Routine Skin Exam Skin: Present warm; Absent rash *Routine Neurological Exam Neurological: Present alert and oriented X3 Assessment and Plan *Assessment and plan (1) Food impaction of esophagus: Status: Acute Category: Medical Code(s): T18.128A - Food in esophagus causing other injury, initial encounter; [id number].F3XA - Food entering into or through a natural orifice, initial encounter (2) Dysphagia: Status: Acute Category: Medical Code(s): R13.10 - Dysphagia, unspecified Plan A/P: 1. Worsening dysphagia with food impaction is the preprocedural diagnosis. The patient will be anesthetized/sedated using MAC sedation. The patient has been seen and examined. Cardiac and lung assessment prior to the examination is stable. Proceed with planned diagnostic/therapeutic EGD.
--- NOTE | 2025-01-23 09:59 | P.PCN_ITS ---
[facility] Procedure Note Date: 01/23/25 Time: 10:29 Procedure Note:: Upper Endoscopy Procedure Report: Esophagogastroduodenoscopy with removal of meat impaction and TTS balloon dilation Endoscopost: Jose G Martinez II, MD Referring Physician: Michael Cuello MD?ED Date of Procedure: January 23, 2025 Equipment: Olympus GIF-1100 standard upper endoscope Sedation: MAC sedation Indications: Mr. York is a 64-year-old gentleman who is here for diagnostic/therapeutic EGD secondary to a food impaction. The patient reports eating beef stew yesterday and a piece of beef got hung with food impaction and he is unable to tolerate liquids or his saliva. He came to the ED. Glucagon was administered. The patient does report more frequent dysphagia with intermittent food hanging. He is often able to swallow this down with liquids. The patient is missing most of his teeth including molar teeth and has difficulty chewing/difficult mastication. The patient reports no heartburn, reflux or weight loss. This is his first EGD. The examination is deemed medically necessary for EGD. Procedure: Prior to the procedure, a history and physical exam was performed, and patient's medications and allergies were reviewed. The risks, benefits and alternatives of the sedation and procedure were discussed with the patient. All questions were answered and informed consent was obtained. The patient was brought to the procedure room. Patient identification and proposed procedure were verified by the physician and the nurse. The patient was placed in a left lateral decubitus position and the scope was passed under direct vision. Throughout the procedure, the patient's blood pressure, pulse, and oxygen saturations were monitored continuously. The upper GI endoscopy was accomplished without difficulty. The patient tolerated the procedure well. Findings: The scope was passed directly into the upper esophagus. There was a large food bolus in the proximal esophagus. Initially we attempted to place the E cap device but this would not pass readily into the upper esophagus. Next, we did use a Douglas net and there was some difficulty getting the entire bolus out with this but several pieces of food bolus were removed with a Douglas net. We additionally used rat-tooth forceps and [place] grasper devices and several portions of the food bolus were removed with this. We attempted to use a 9 mm snare which was not large enough. Lastly, we did utilize another Douglas net because the first Douglas net broke. With this we were able to remove a larger portion of the food bolus. After this, the remainder of the meat food bolus was easily passed through the proximal esophageal stricture into the stomach and there was clearance of the food bolus. The scope was then advanced to the third portion of the duodenum. The post bulbar duodenum and duodenal bulb were normal with normal mucosa and conniventes. The scope was withdrawn through a normal duodenal bulb and pylorus into the stomach. The antrum body and fundus of the stomach were normal. Upon retroflexion there was a 2 to 3 cm hiatal hernia. The scope was then withdrawn into the esophagus. There was no evidence of reflux esophagitis or Black's. There was some proximal esophageal stenosis with 3 proximal esophageal webs/fibrous mucosa and this was dilated to 18 mm and not beyond because of tightness. Impression: 1. Esophageal food meat impaction status post clearance/removal 2. Proximal esophageal stenosis/webs status post esophageal dilation to 18 mm 3. 2 to 3 cm hiatal hernia Plan: I did dilate the esophagus. The patient's dysphagia also primarily rests on the fact that he is unable to fully chew or masticate food. He will need properly fitting dentures.
[2025-01-23 10:15] LABS: Albumin Level 4.9 g/dl (3.5-5.0); Chloride 103 mmol/L (98-107); Potassium 4.8 mmoL/L (3.5-5.1); Sodium 141 mmol/L (136-145)
[2025-01-23 10:18] LABS: Alanine Aminotransferase 14 U/L (12-78); Albumin/Globulin Ratio 1.1 (1.1-1.8); Alkaline Phosphatase 141 U/L (38-126); Anion Gap 17.8 mEq/L (5-15); Aspartate Amino Transferase 25 U/L (17-59); Bilirubin,Total 0.7 mg/dl (0.2-1.3); Calcium 9.5 mg/dl (8.4-10.2); Carbon Dioxide 25 mmol/L (22.0-30.0); Globulin 4.4 g/dL (1.3-3.2); Glucose 98 mg/dl (74-100); Total Protein,Serum 9.3 g/dl (6.3-8.2)
--- NOTE | 2025-01-23 10:45 | P.PNANES_ITS ---
[facility] Disclaimer: The information contained in this section may have been updated after the patient was seen, as this information can be updated by other users. Medical History Dyspnea Abnormal stress test Amputation finger Peripheral vascular disease Other specified symptoms and signs involving the circulatory and respiratory systems Numbness and tingling Hypertension Family History Other No significant family history Social History Smoking Status: Current every day smoker tobacco type: cigarettes packs per day: 1 alcohol intake: former year quit: 2023 substance use type: former substance user, marijuana and crack/cocaine current occupational status: retired Travel in the last 8 weeks?: None Have you lived/traveled outside US in past 30 days?: No Contact w/someone who lives/traveled outside US past 30 days?: No Exposure to someone with infectious disease in past 14 days?: No Do you have a fever (greater than 100.4 F or 38 C)?: No Have you tested positive for COVID-19?: No Exposed to someone with COVID-19 in past 14 days?: No Do you have a sore throat?: No Do you have a cough?: No Do you have any weakness?: No Do you have any diarrhea?: No Are you experiencing any unusual bleeding?: No Do you have any muscle aches/pain?: No Do you have any abdominal pain?: No Are you experiencing loss of taste or smell?: No [facility] Anesthesia Checklist Patient Identification Patient Identification: Verbal (Name & ) Structural Data Admitted From: Home Planned Operative Procedure/s: egd Consent for Planned Operative Procedure(s) Verified: Yes NPO Status Verified Time NPO: 00:00 Airway Assessment Mallampati Score:: Class II C-Spine Mobility Assessed: Yes TMJ Mobility Assessed: Yes Dentition: Edentulous Neurological Assessment Level of Consciousness: Awake, Alert and Appropriate Anesthesia Plan Anesthesia Risk discussed: Yes Anesthesia Plan: Verified ASA Class: II Anesthesia Type: MAC
[2025-01-23 11:06] LABS: Hepatitis C Ab Qual. W/ RFX REACTIVE (Negative)
[2025-01-23 11:58] LABS: Blood Urea Nitrogen 13 mg/dl (9-20); Creatinine Clearance Estimated 71 mL/min (50-200); Creatinine,Serum 1.00 mg/dl (0.66-1.25); Estimated Glomerular Filt Rate 76 ml/min (>60); GFR (African American) 92 ML/MIN (>60)
== END 2025-01-23 11:03 | disposition home or self-care (01) ==
LOC: ER 08:42 → OR 09:02
PROVIDERS: Emergency Provider Emergency Medicine; Visit Provider Internal Medicine Gastroenterology
PROC: 0DJ08ZZ Inspection of Upper Intestinal Tract, Via Natural or Artificial Opening Endoscopic (ICD-10-PCS; CPT 43247; principal; 2025-01-23 09:15)
DX: T18.128A Food in esophagus causing other injury, initial encounter (principal); W44.F3XA Food entering into or through a natural orifice, initial encounter; K22.2 Esophageal obstruction; K44.9 Diaphragmatic hernia without obstruction or gangrene; I10 Essential (primary) hypertension; Z88.6 Allergy status to analgesic agent; F17.210 Nicotine dependence, cigarettes, uncomplicated
CPT/HCPCS: 43247; 43249; 80053; 85025; 86803; 87389; 87522; 93005; 99285; C1726; J1611; J2003; J2704

== ENCOUNTER 2025-01-24 14:03 | Observation (INO) | payer MEDICAID, SELFPAY ==
[2025-01-24] VITALS (36 sets, daily range): BP systolic 89–157; BP diastolic 54–95; PULSE 50–86; RESP 16–22; TEMP 36.8–37; O2SAT 94–99; BMI 20.9
--- NOTE | 2025-01-24 07:24 | IR_ITS ---
APPROVED REPORT Patient Location: Outpatient Port Traffic Manager: MALGORZATA Cano RT (R) PROCEDURES Catheter placement in the abdominal aorta Abdominal aortography Repositioning of the catheter in the abdominal aorta Bilateral iliofemoral runoff Bare-metal stent deployment to the left external iliac artery Bare-metal stent deployment to the left common iliac artery INDICATION [place] claudication class IV, Abnormal DELMI 0.5 on the left, Peripheral artery disease, Left common and external iliac artery stenosis, Informed consent was obtained prior to the procedure. COMPLICATIONS None Estimated Blood Loss: Less than 10 mls TECHNIQUE 1% lidocaine used anesthetize the right groin the right from artery is accessed via the central technique and a 4 Venezuelan sheath is placed in the right femoral artery. A pigtail catheter was advanced to the abdominal aorta where abdominal aortography was performed. The catheter was then repositioned and bilateral iliofemoral runoff was performed. Following this the 4 Venezuelan sheath was exchanged for a 6 [place] sheath and therapeutic heparin was administered giving a therapeutic ACT. A rim catheter was advanced and used to cannulate the left common iliac artery were an advantage wire was advanced under fluoroscopic guidance into the profunda femoris. Following this the short 6 [place]an sheath was exchanged for a 45 cm hydrophilic 6 [place]an sheath. A 8 mm x 60 mm self-expanding bare-metal stent was deployed in the left external iliac artery reducing the stenosis. A 7 mm x 40 mm balloon was deployed at 10 trista to post dilate. There was atheromatous and metallic debris in the proximal to midportion of the left common iliac artery which was appreciated upon sheath and stent passage. Because of this an 8 mm x 57 mm balloon mounted bare-metal stent was placed in the left common iliac artery extending into the left external iliac artery stent and deployed at 12 trista. The balloon was advanced to half length and deployed at 4 trista in the left external iliac artery. Wide patency was achieved with excellent angiograph results. At the end the procedure the apparatus was removed the long 6 Venezuelan sheath was exchanged for short 6 Venezuelan sheath and the patient was transferred to the postop putting in stable condition ANGIOGRAPHIC RESULTS Distal abdominal aorta is atheromatous mildly aneurysmal Right common and external iliac arteries are patent with stents throughout the entire course the right internal iliac artery is widely patent. The right common femoral artery has a 50 to 60% stenosis. The proximal right SFA has a 1.5 cm in length concentric 80% stenosis while the remaining right superficial femoral artery is patent with antegrade flow throughout its entire course which is scattered with diffuse 40% and 50% stenosis. The proximal right SFA has a concentric 80% stenosis. The right profunda femoris artery is widely patent. The right popliteal artery has 50% stenosis. There is two-vessel runoff below the knee on the right side from the anterior and posterior tibialis artery Left common iliac artery has a mid vessel 40% stenosis. The left internal iliac artery is occluded the left external iliac artery has an eccentric 50% stenosis followed by a concentric 80 to 90% stenosis. The entire left superficial femoral artery is occluded from the ostium throughout its entire course. The profunda femoris artery is widely patent and collateralizes the mid popliteal artery. The popliteal artery has a mid vessel 60% stenosis and then gives single-vessel runoff into the left foot from the posterior tibialis artery IMPRESSION Peripheral artery disease as described above Successful stenting of the left common and external iliac artery severe and critical disease reduced to 0% with 2 bare-metal stents Persistent right proximal SFA stenosis Two-vessel runoff below the knee on the right leg Single-vessel runoff below the knee on the left leg PLAN 1. Xarelto 2.5 twice daily plus aspirin 81 mg daily 2. Avoidance of tobacco products 3. Risk factor modification 4. Cardiac rehabilitation 5. Patient will be brought back to the [facility] in 2 weeks and will undergo radial arterial access with plans to perform cardiac catheterization for the abnormal stress test 6. If patient continues to experience intractable right leg claudication he can be brought back to the [facility] and undergo drug-coated balloon angioplasty to the right SFA Electronically signed by : Dioni Lopez MD 01/24/2025 14:03:46
[2025-01-24] MEDS: HEPARIN 1,000 UNITS/500ML NS (CATH LAB) 3000 UNIT IV (12:42)
[2025-01-24] MEDS: FENTANYL 100MCG/2ML VIAL 50 MCG IV (12:43)
[2025-01-24] MEDS: MIDAZOLAM HCL 1MG/ML 5ML VIAL 1 MG IV (12:43)
[2025-01-24] MEDS: LIDOCAINE 1% 10ML MDV 10 ML IJ (12:43)
[2025-01-24] MEDS: 0.9 % SODIUM CHLORIDE 500 ML 25 ML IV (12:43)
[2025-01-24 15:35] LABS: CATHL Activated Clotting Time 259 SEC (74-125)
[2025-01-24] MEDS: IOPAMIDOL-370 (76%);100ML BOTTLE 50 ML IV (15:38)
[2025-01-24] MEDS: IOHEXOL-240 100ML BOTTLE 100 ML IV (15:39)
--- NOTE | 2025-01-24 16:06 | P.HP_ITS ---
<Statement entered by Cosmo Becerra MD - 01/25/25 11:50> Agree with plan of care as outlined by the STRONG NITRIC OPERATOR. History of Present Illness *Admission Date: 01/24/25 *Reason for visit:: s/p runoff *History of present illness: Mr. York is a 64-year-old male who presented to the outpatient [facility] today for a bolus willian runoff of his left lower extremity. He has a primary medical history of hypertension, PVD, restless leg, tobacco use, CAD, anemia, polyneurop athy, and alcohol use disorder. He was taken for an outpatient left lower extremity runoff where he received successful stenting to the left common and external iliac artery?severe and critical disease reduced to 0% with 2 bare- metal stents. Persistent right proximal SFA stenosis, two-vessel runoff below the knee on the right leg, single-vessel runoff below the knee on the left leg. Patient tolerated procedure well but was at high risk for decompensation and bleeding postprocedure, therefore he was admitted to the hospital for further monitoring and observation. [facility] Disclaimer: The information contained in this section may have been updated after the patient was seen, as this information can be updated by other users. Medical History Dyspnea Abnormal stress test Amputation finger Peripheral vascular disease Other specified symptoms and signs involving the circulatory and respiratory systems Numbness and tingling Hypertension Family History Other No significant family history Social History Smoking Status: Current every day smoker tobacco type: cigarettes packs per day: 1 alcohol intake: former year quit: 2023 substance use type: former substance user, marijuana and crack/cocaine current occupational status: retired Travel in the last 8 weeks?: None Have you lived/traveled outside US in past 30 days?: No Contact w/someone who lives/traveled outside US past 30 days?: No Exposure to someone with infectious disease in past 14 days?: No Do you have a fever (greater than 100.4 F or 38 C)?: No Have you tested positive for COVID-19?: No Exposed to someone with COVID-19 in past 14 days?: No Do you have a sore throat?: No Do you have a cough?: No Do you have any weakness?: No Do you have any diarrhea?: No Are you experiencing any unusual bleeding?: No Do you have any muscle aches/pain?: No Do you have any abdominal pain?: No Are you experiencing loss of taste or smell?: No Other Medical History Have you received the Flu Vaccine for this season: No Have you received the Pneumonia Vaccine: Yes Review of Systems Review of Systems Review of systems (narrative): Negative *Cardiovascular Comments: Negative *Gastrointestinal Comments: Negative *Genitourinary Comments: Negative *Musculoskeletal Comments: Negative *Neurologic Comments: Negative Meds Home Medications and Allergies Home Medications ?Medication ?Instructions ?Recorded ?Confirmed ?Type cholecalciferol (vitamin D3) 1,250 50,000 unit PO WEEK LY 12/05/24 01/24/25 History mcg (50,000 unit) capsule clopidogrel 75 mg tablet 75 mg PO DAILY 12/05/2401/10 History lisinopril 5 mg tablet 5 mg PO DAILY .HELD SINCE 12/05/24 01/24/25 History melatonin 5 mg tablet 10 mg PO HS 12/05/24 5 History pantoprazole 20 mg tablet,delayed 20 mg PO HS 12/05/24 01/24/25 History release salicylic acid 40 % topical patch 1 applic topical Q48 H 12/05/24 01/24/25 History (Compound W) tamsulosin 0.4 mg capsule 0.4 mg PO DAILY 12/05/2401/10 History gentamicin 0.1 % topical cream 1 applic topical BID op en wound 3 01/07/25 01/24/25 Rx weeks #30 grams ferrous sulfate 325 mg (65 mg 325 mg PO DAILY #30 tabs 01/14/25 01/24/25 Rx iron) tablet (Iron (ferrous sulfate)) atorvastatin 40 mg tablet (Lipitor) 40 mg PO DAILY 30 days #30 tabs 01/24/25 Rx New Prescriptions to Start Prescriptions: atorvastatin [Lipitor] Dioni Lopez Allergies Allergy/AdvReac Type Severity Reaction Status Date / Time No Known Allergies Allergy Verified 01/24/25 16:15 Exam Data for Last 24 hours Vital signs and Labs for Last 24 Hours: Pulse Resp BP Pulse Ox O2 Del Method 52 L 16 112/65 96 Room Air 01/24/25 15:15 01/24/25 15:15 01/24/25 15:15 01/24/25 15:15 01/24/25 15:15 Laboratory Results - last 24 hr 01/24/25 13:21: Activated Clotting Time 259 H* I & O for Last 24 hours: Intake & Output 01/21/25 01/22/25 01/23/25 01/24/25 23:59 23:59 23:59 23:59 Intake Total 24.583 / 24.583 Balance 24.583 / 24.583 Weight 64.41 kg *Routine HEENT Exam Head: Present normocephalic Eye: Present EOMI and PERRL ENT: Present mucous membranes moist *Routine Neck Exam Neck: Present supple *Routine Respiratory Exam Respiratory: Present CTA bilaterally *Routine Cardiovascular Exam Cardiovascular: Present RRR *Routine Abdominal Exam Abdominal: Present soft and normoactive bowel sounds; Absent tenderness *Routine Rectal Exam Rectal:: deferred *Routine Genitalia Exam Genitalia:: deferred *Routine Extremities Exam Extremities: Absent cyanosis, clubbing or edema *Routine Skin Exam Skin: Present intact, dry and warm; Absent rash Comments: Right groin cath site, pressure dressing in place *Routine Neurological Exam Neurological: Present alert and oriented X3 Assessment and Plan *Assessment and plan (1) PAD (peripheral artery disease): Status: Acute Category: Medical Code(s): I73.9 - Peripheral vascular disease, unspecified (2) Abnormal ankle brachial index (DELMI): Status: Acute Category: Medical Code(s): R68.89 - Other general symptoms and signs (3) Anemia: Status: Acute Category: Medical Code(s): D64.9 - Anemia, unspecified Plan Mr. York is a 64-year-old male who presented to the outpatient [facility] today for a bolus willian runoff of his left lower extremity. He has a primary medical history of hypertension, PVD, restless leg, tobacco use, CAD, anemia, polyneuropathy, and alcohol use disorder. He was taken for an outpatient left lower extremity runoff where he received successful stenting to the left common and external iliac artery?severe and critical disease reduced to 0% with 2 bare- metal stents. Persistent right proximal SFA stenosis, two-vessel runoff below the knee on the right leg, single-vessel runoff below the knee on the left leg. Patient tolerated procedure well but was at high risk for decompensation and bleeding postprocedure, therefore he was admitted to the hospital for further monitoring and observation. I agreed to accept the patient, plan of care as follows: #PAD #Abnormal DELMI #S/p left lower extremity runoff ? Patient had successful left lower extremity runoff today with stenting. Recommendations from cardiology to start Xarelto 2.5 twice daily and aspirin 81 mg daily. Avoidance of tobacco products. Risk modification and cardiac rehabilitation. Plans to bring patient back in 2 weeks to undergo a left heart cath for previous abnormal stress test, if patient continues to experience right leg claudication he may undergo an angioplasty to the right SFA. Continue close cardiac telemetry monitoring overnight. ?Will continue patient's home medication lisinopril 5 mg, Plavix 75 mg, Lipitor 40 mg. ?CBC, CMP, magnesium, PT/INR ordered for the a.m. ?Initial assessment patient had postoperative bleeding, pressure was held for 20 minutes and pressure dressing applied. Close monitoring will be needed. Patient mostly flat for 6 hours. #BPH: Continue tamsulosin 0.4 mg daily. #Anemia: Continue iron 325 mg daily. Hemoglobin 13.6, hematocrit 43.6. Stable. Full code Bed rest?lay flat until 10 PM Cardiac diet VTE?Xarelto 2.5 mg twice daily
--- NOTE | 2025-01-24 16:37 | PC.NURSE ---
Pt alert and oriented x4. NSR on telemetry. Pt's dressing was saturated and oozing blood approx 25 minutes after arriving to the floor, manual pressure held for 15 minutes and new dressing placed afterwards. Dressing is currently clean, dry, and intact. He has no questions or concerns at this time. Bed is locked and in the lowest position, call light within reach.
[2025-01-24] MEDS: MELATONIN 5MG TABLET 10 MG PO (21:03)
[2025-01-24] MEDS: PANTOPRAZOLE 40MG TABLET 40 MG PO (21:03)
[2025-01-24] MEDS: HYDROCODONE/APAP 5/325 MG TABLET 2 TAB PO (21:08)
[2025-01-25] VITALS: BP 101/57; PULSE 58; PULSE 60; RESP 16; TEMP 36.6; O2SAT 94
[2025-01-25] MEDS: HYDROCODONE/APAP 5/325 MG TABLET 1 TAB PO ×2 (02:40→09:00)
[2025-01-25 04:00] VITALS: BP 88/47; PULSE 53; PULSE 55; RESP 16; TEMP 36.5; O2SAT 93; BMI 20.9
[2025-01-25 04:38] VITALS: BP 99/51
--- NOTE | 2025-01-25 04:40 | PC.NURSE ---
Alert and oriented. Femoral site, dressing CDI. Ambulates to the restroom with walker. Complained of pain, treated per jun. Room air. NSR on tele. Call light in reach.
[2025-01-25 06:25] LABS: Hematocrit 37.0 % (42.0-52.0); Hemoglobin 11.4 g/dL (14.1-18.0); Immature Granulocytes % 0.3 %; Mean Corpuscular HGB Conc 30.8 g/dL (31.8-35.4); Mean Corpuscular Hemoglobin 24.9 pg (27.0-31.2); Mean Corpuscular Volume 80.8 fl (80-94); Nucleated Red Blood Cells % 0 %; Platelet Count 330 K/mm3 (142-424); Red Blood Count 4.58 M/mm3 (4.60-6.20); Red Cell Distribution Width-SD 53.1 fL; White Blood Count 9.3 K/mm3 (4.8-10.8)
[2025-01-25 06:40] LABS: INR 1.09 (0.9-1.1); Prothrombin Time 12.0 seconds (10.1-12.5)
[2025-01-25 06:53] LABS: Anion Gap 15.2 mEq/L (5-15); Blood Urea Nitrogen 11 mg/dl (9-20); Calcium 8.7 mg/dl (8.4-10.2); Carbon Dioxide 23 mmol/L (22.0-30.0); Chloride 103 mmol/L (98-107); Creatinine Clearance Estimated 70 mL/min (50-200); Creatinine,Serum 0.90 mg/dl (0.66-1.25); Estimated Glomerular Filt Rate 86 ml/min (>60); GFR (African American) 103 ML/MIN (>60); Glucose 65 mg/dl (74-100); Potassium 4.2 mmoL/L (3.5-5.1); Sodium 137 mmol/L (136-145)
[2025-01-25 08:00] VITALS: BP 129/49; PULSE 70; RESP 17; TEMP 36.7; O2SAT 96
[2025-01-25] MEDS: FERROUS SULFATE 325MG TABLET 325 MG PO (08:53)
[2025-01-25] MEDS: ASPIRIN EC 81MG TABLET 81 MG PO (08:57)
[2025-01-25] MEDS: TAMSULOSIN 0.4MG CAPSULE 0.4 MG PO (08:57)
--- NOTE | 2025-01-25 08:57 | CA_ITS ---
FINAL REPORT CLINICAL HISTORY: Patient had bolus willian angiogram runoff of bilateral lower extremities 01/24/25 with right groin access. Pain in right groin since procedure. PAD, smoker, HTN, CAD. COMPARISON: None FINDINGS: ARTERIAL DOPPLER RIGHT UPPER LEG: Arterial Doppler examination of the right upper leg, in the region of the groin was performed. There is flow in the right femoral artery without evidence of extravasation. There is also flow noted in the right common femoral vein. No fluid collections are identified. There is no evidence of a pseudoaneurysm. IMPRESSION: No evidence of a pseudoaneurysm or abnormal fluid collection is seen in the region of the right upper leg. Reviewed, Interpreted and Dictated by Laury Kelley MD Transcribed by Yuliana Patricia Authenticated and [facility]
[2025-01-25] MEDS: CLOPIDOGREL 75MG TAB 75 MG PO (08:58)
[2025-01-25 09:05] LABS: Magnesium 1.8 mg/dl (1.6-2.3)
--- NOTE | 2025-01-25 09:39 | P.DS_ITS ---
<Statement entered by Cosmo Becerra MD - 01/29/25 12:39> Agree with the plan of care as outlined by the ENGINE GENERATOR ASSEMBLER below. General Admission date:: 01/24/25 Discharge date: 01/25/25 HPI HPI HPI: Mr. York is a 64-year-old male who presented to the outpatient [facility] today for a bolus willian runoff of his left lower extremity. He has a primary medical history of hypertension, PVD, restless leg, tobacco use, CAD, anemia, polyneuropathy, and alcohol use disorder. He was taken for an outpatient left lower extremity runoff where he received successful stenting to the left common and external iliac artery?severe and critical disease reduced to 0% with 2 bare- metal stents. Persistent right proximal SFA stenosis, two-vessel runoff below the knee on the right leg, single-vessel runoff below the knee on the left leg. Patient tolerated procedure well but was at high risk for decompensation and bleeding postprocedure, therefore he was admitted to the hospital for further monitoring and observation. Hospital Course Hospital Course Hospital Course: Mr. York is a 64-year-old male who presented to the outpatient [facility] yesterday for a bolus willian runoff of his left lower extremity. He has a primary medical history of hypertension, PVD, restless leg, tobacco use, CAD, anemia, polyneuropathy, and alcohol use disorder. He was taken for an outpatient left lower extremity runoff where he received successful stenting to the left common and external iliac artery?severe and critical disease reduced to 0% with 2 bare-metal stents. Persistent right proximal SFA stenosis, two-vessel runoff below the knee on the right leg, single-vessel runoff below the knee on the left leg. Patient tolerated procedure well but was at high risk for decompensation and bleeding postprocedure, therefore he was admitted to the hospital for further monitoring and observation. I agreed to accept the patient, plan of care was as follows: #PAD #Abnormal DELMI #S/p left lower extremity runoff ? Patient had successful left lower extremity runoff today with stenting. Recommendations from cardiology to start Xarelto 2.5 twice daily and aspirin 81 mg daily. Avoidance of tobacco products. Risk modification and cardiac rehabilitation. Plans to bring patient back in 2 weeks to undergo a left heart cath for previous abnormal stress test, if patient continues to experience right leg claudication he may undergo an angioplasty to the right SFA. Patient was monitored overnight with no episodes of bleeding or cardiac events. ?Patient has poor pedal pulses, unable to palpate. Bilateral lower extremities warm with good color. Dopplered pulses intact. Patient had right arterial ultrasound to ensure no pseudoaneurysm can be seen. Ultrasound is negative. Patient given restriction for postop cath site management and activity. ?Will continue patient's home medication lisinopril 5 mg, Plavix 75 mg, Lipitor 40 mg. Will add Xarelto 2.5 mg twice daily, atorvastatin 40 mg daily, aspirin 81 mg daily (stop after 30 days). #Abnormal stress test ? Patient will be brought in to the [facility] in 2 weeks to undergo right radial left heart cath for abnormal stress test prior to admission. Patient on appropriate cardiac therapy at this time. #BPH: Continue tamsulosin 0.4 mg daily. #Anemia: Continue iron 325 mg daily. Hemoglobin 13.6, 11.4, hematocrit 37.0. Stable. #Head contusion, present on arrival ? Patient had a head contusion approximately 2 weeks ago, dianna in place. Patient states he missed appointmen to have dianna removed. [place] removed prior to discharge. Lack well-approximated, clean dry and intact. Total time spent on discharge 37 minutes in counseling, documentation, chart review, and direct care with patient. Exam Data for Last 24 hours Vital signs and Labs for Last 24 Hours: Temp Pulse Resp BP Pulse Ox O2 Del Method 98.0 F 70 17 129/49 L 96 Room Air 01/25/25 08:00 01/25/25 08:00 01/25/25 08:00 01/25/25 08:00 01/25/25 08:00 01/25/25 08:28 Laboratory Results - last 24 hr 01/24/25 13:21: Activated Clotting Time 259 H* 01/25/25 05:34: WBC 9.3, RBC 4.58 L, Hgb 11.4 L, Hct 37.0 L, MCV 80.8, MCH 24.9 L, MCHC 30.8 L, RDW 19.0 H, Plt Count 330, MPV 11.3 H, Neut % (Auto) 48.9, Lymph % (Auto) 38.0, [place] % (Auto) 9.8 H, Eos % (Auto) 2.7, Baso % (Auto) 0.3, Neut # (Auto) 4.6, Lymph # (Auto) 3.5, [place] # (Auto) 0.9, Eos # (Auto) 0.3, Baso # (Auto) 0.0, PT 12.0, INR 1.09, Sodium 137, Potassium 4.2, Chloride 103, Carbon Dioxide 23, Anion Gap 15.2 H, BUN 11, Creatinine 0.90, Estimated Creat Clear 70, Estimated GFR 86, Est GFR ( Amer) 103, Glucose 65 L, Calcium 8.7, Magnesium 1.8 I & O for Last 24 hours: Intake & Output 01/22/25 01/23/25 01/24/25 01/25/25 23:59 23:59 23:59 23:59 Intake Total 24.583 / 324.583 420 / 420 Output Total 625 / 625 0 / 0 Balance -600.417 / -300.417 420 / 420 Weight 64.41 kg 64.229 kg Constitutional Constitutional: no acute distress, thin, chronically ill appearing and cooperative *Routine HEENT Exam Head: Present normocephalic Eye: Present EOMI ENT: Present mucous membranes moist; Absent dentition normal *Routine Neck Exam Neck: Present full ROM; Absent JVD *Routine Respiratory Exam Respiratory: Present CTA bilaterally, prolonged expiratory phase and normal respiratory effort; Absent wheezes or crackles *Routine Cardiovascular Exam Cardiovascular: Present RRR; Absent murmur *Routine Abdominal Exam Abdominal: Present soft and normoactive bowel sounds; Absent tenderness *Routine Rectal Exam Patient deferred: visual exam *Routine Exam Penile: Absent swelling or erythema Groin: Present tenderness (right cath site); Absent swelling or erythema *Routine Extremities Exam Extremities: Present full ROM; Absent edema, pulses intact (pedal pulses non palpable, dopplered), pallor or extremity cold to touch *Routine Skin Exam Skin: Present intact and dry; Absent erythema Comments: Previous head lack with dianna removed, clean dry intact *Routine Neurological Exam Neurological: Present alert, oriented X3 and normal speech Routine Psychiatric Exam Psychiatric: Present normal affect Results Data Completed and Pending Labs on day of discharge: Labs from last 24 hours 01/25/25 01/24/25 05:34 13:21 WBC 9.3 RBC 4.58 L Hgb 11.4 L Hct 37.0 L MCV 80.8 MCH 24.9 L MCHC 30.8 L RDW 19.0 H Plt Count 330 MPV 11.3 H Neut % (Auto) 48.9 Lymph % (Auto) 38.0 [place] % (Auto) 9.8 H Eos % (Auto) 2.7 Baso % (Auto) 0.3 Neut # (Auto) 4.6 Lymph # (Auto) 3.5 [place] # (Auto) 0.9 Eos # (Auto) 0.3 Baso # (Auto) 0.0 PT 12.0 INR 1.09 Activated Clotting Time 259 H* Sodium 137 Potassium 4.2 Chloride 103 Carbon Dioxide 23 Anion Gap 15.2 H BUN 11 Creatinine 0.90 Estimated Creat Clear 70 Estimated GFR 86 Est GFR ( Amer) 103 Glucose 65 L Calcium 8.7 Magnesium 1.8 DS: Diagnosis Discharge Diagnosis (1) PAD (peripheral artery disease): Status: Acute Code(s): I73.9 - Peripheral vascular disease, unspecified (2) Abnormal ankle brachial index (DELMI): Status: Acute Code(s): R68.89 - Other general symptoms and signs (3) Anemia: Status: Acute Code(s): D64.9 - Anemia, unspecified (4) Head contusion: Status: Acute Code(s): S00.93XA - Contusion of unspecified part of head, initial encounter (5) Peripheral vascular disease: Status: Acute Code(s): I73.9 - Peripheral vascular disease, unspecified (6) Neuropathy: Status: Acute Code(s): G62.9 - Polyneuropathy, unspecified (7) Tobacco abuse: Status: Acute Code(s): Z72.0 - Tobacco use Meds Home Medications and Allergies Home Medications ?Medication ?Instructions ?Recorded ?Confirmed ?Type cholecalciferol (vitamin D3) 1,250 50,000 unit PO WEEK LY 12/05/24 01/24/25 History mcg (50,000 unit) capsule clopidogrel 75 mg tablet 75 mg PO DAILY 12/05/2401/10 History lisinopril 5 mg tablet 5 mg PO DAILY .HELD SINCE 12/05/24 01/24/25 History melatonin 5 mg tablet 10 mg PO HS 12/05/24 5 History pantoprazole 20 mg tablet,delayed 20 mg PO HS 12/05/24 01/24/25 History release salicylic acid 40 % topical patch 1 applic topical Q48 H 12/05/24 01/24/25 H istory (Compound W) tamsulosin 0.4 mg capsule 0.4 mg PO DAILY 12/05/2401/10 History gentamicin 0.1 % topical cream 1 applic topical BID op en wound 3 01/07/25 01/24/25 Rx weeks #30 grams ferrous sulfate 325 mg (65 mg 325 mg PO DAILY #30 tabs 01/14/25 01/24/25 Rx iron) tablet (Iron (ferrous sulfate)) atorvastatin 40 mg tablet (Lipitor) 40 mg PO DAILY 30 days #30 tabs 01/24/25 Rx aspirin 81 mg tablet,delayed 81 mg PO DAILY #0 tabs Rx release rivaroxaban 2.5 mg tablet (Xarelto) 2.5 mg PO BID #60 tabs 01/25/25 Rx New Prescriptions to Start Prescriptions: atorvastatin [Lipitor] Dioni Lopez rivaroxaban [Xarelto] Stephanie Joshi Allergies Allergy/AdvReac Type Severity Reaction Status Date / Time No Known Allergies Allergy Verified 01/24/25 16:15 Discharge Plan Disposition Patient Disposition: Home, Self-Care Condition: Fair Follow up Plan Follow up with: Dioni Lopez MD [Staff Physician, Cardiology] - 01/31/25 11:30 am Candy Bush APRN [Referring, Medical] - Enter time for follow up Prescriptions/Medication Reconciliation: New atorvastatin [Lipitor] 40 mg Tablet 40 mg PO DAILY 30 Days Qty: 30 3RF aspirin 81 mg Tablet,Delayed Release (Dr/Ec) 81 mg PO DAILY Qty: 0 0RF rivaroxaban [Xarelto] 2.5 mg Tablet 2.5 mg PO BID Qty: 60 0RF Continued clopidogrel 75 mg tablet 75 mg PO DAILY pantoprazole 20 mg tablet,delayed release (DR/EC) 20 mg PO HS tamsulosin 0.4 mg capsule 0.4 mg PO DAILY Compound W 40 % adhesive patch,medicated 1 applic topical Q48H lisinopril 5 mg tablet 5 mg PO DAILY cholecalciferol (vitamin D3) 1,250 mcg (50,000 unit) capsule 50,000 unit PO WEEKLY melatonin 5 mg tablet 10 mg PO HS gentamicin 0.1 % cream 1 applic topical BID 21 Days Qty: 30 1RF ferrous sulfate [Iron (ferrous sulfate)] 325 mg (65 mg iron) tablet 325 mg PO DAILY Qty: 30 0RF Problem Reconciliation Problems Reviewed?: Yes Patient Discharge Instructions ACTIVITY: Ambulate as tolerated and No heavy lifting DIET: continue same diet Patient Instructions: Cardiac Catheterization, DI for Moderate Sedation Print Language: Thai Providers Primary Care Provider: Provider,Referral Admit Provider: Dioni Lopez Attending Provider: Cosmo Becerra
--- NOTE | 2025-01-25 09:45 | HMH.OTEV ---
OT Evaluation Rehab OT IP Evaluation Start: 01/24/25 15:39 Freq: ONCE Status: Active Protocol: Document 01/25/25 09:41 COOKIE (Rec: 01/25/25 09:44 [id number] Rehab OT IP Assessment Subjective History Pt oriented x 3 on arrival. Pt agreeable to engage in therapy evaluation. Pt admitted on 01/24/25 due to PAD. History and physical: Mr. York is a 64-year-old male who presented to the outpatient [facility] today for a bolus willian runoff of his left lower extremity. He has a primary medical history of hypertension, PVD, restless leg, tobacco use , CAD, anemia, polyneuropathy, and alcohol use disorder . He was taken for an outpatient left lower extremity runoff where he received successful stenting to the left common and external iliac artery?severe and critical disease reduced to 0% with 2 bare-metal stents . Persistent right proximal SFA stenosis, two-vessel runoff below the knee on the right leg, single-vessel runoff below the knee on the left leg. Patient tolerated procedure well but was at high risk for decompensation and bleeding postprocedure, therefore he was admitted to the hospital for further monitoring and observation. Subjective Prior to being in the hospital, pt [facility]. Pt claims normally he is independent with all ADLs. He does use a rollator during functional transfers. Staff assist with IADLs as needed. Objective Patient Orientation Person,Place,Birthday Right Upper WFL Extremity Gross ROM Left Upper Extremity WFL Gross ROM Bed Mobility bed mobility-scooting,bed mobility - supine/sit Assist Level Supervision/Stand by Transfer Training Sit/Stand Transfer Assist Level Supervision/Stand by Chair Transfer Supervision/Stand by Ability Chair Transfer Sit to/from Ambulatory Technique Chair Transfer Rolling Walker Assistive Devices Lower Body Dressing Standby Assistance Ability Performing Toilet Standby Assistance Hygiene Ability Overall Commode/ Standby Assistance Toilet Transfer Ability Commode/Toilet Sit to/from Ambulatory Transfer Technique Commode/Toilet Grab Bars Transfer Assistive Devices Rehab OT IP prob,goals,plan Problems Date of Evaluation: 01/25/25 Rehab Potential Rehab Potential Innapropriate for Skilled Therapy Discharge Plan OT Discharge Plan Pt appears to be at his baseline with functional transfers and ADL independence. Pt can return back to [facility] once he is medically stable per physician. Eval Complexity Eval Charge Codes 33517 - Moderate Complexity PHYSICIAN CERTIFICATION: I certify the specified therapy services for Jovan York are required, authorized, and reviewed every 30 days.
--- NOTE | 2025-01-25 09:45 | HMH.PTEV ---
Physical Therapy Evaluation Rehab PT IP Evaluation Start: 01/24/25 15:39 Freq: ONCE Status: Active Protocol: Document 01/25/25 09:01 KARLOS (Rec: 01/25/25 09:04 KARLOS [id number]) Subjective/History History History Per H&P: Mr. York is a 64-year-old male who presented to the outpatient Salon Assistant today for a bolus willian runoff of his left lower extremity. He has a primary medical history of hypertension, PVD, restless leg, tobacco use, CAD, anemia, polyneuropathy, and alcohol use disorder. He was taken for an outpatient left lower extremity runoff where he received successful stenting to the left common and external iliac artery?severe and critical disease reduced to 0% with 2 bare-metal stents. Persistent right proximal SFA stenosis, two-vessel runoff below the knee on the right leg, single-vessel runoff below the knee on the left leg. Patient tolerated procedure well but was at high risk for decompensation and bleeding postprocedure , therefore he was admitted to the hospital for further monitoring and observation. Subjective Subjective Pt reports she lives one the ground level at [facility]. Pt normally uses a rollator for all mobility. Pt reports one fall in past 6 months (was trying to bring rollator up a curb step and fell backwards) [facility] How much help from another person do you currently need... Turning from your None back to your side while in a flat bed without using bedrails? Moving from lying on None back to sitting on the side of a flat bed without using bedrails? Moving to and from a None bed to a chair ( including a wheelchair)? Standing up from a None chair using your arms? (e.g., wheelchair, bedside chair) Walking in hospital A little room? Climbing 3-5 steps A little with a railing? Mobility Score 22 Mobility Level [facility] Mobility Walk 25 feet or more Mobility Calculator Rehab PT IP Eval Objective Appearance Patient Behavior Appropriate,Cooperative Patient Orientation Person,Place,Situation Difficulty following none instructions Speech Pattern Clear Ambulation Patient Able to Yes Ambulate Ambulation Observation IP General Gait Antalgic Gait Pattern Observation Ambulation Distance 30 (feet) Ambulation Assistive Rolling Walker Device Ambulation Ability Supervision/Stand by Balance Ability to Arise Able, uses arms to help Sitting Balance Steady, safe Standing Balance Steady, wide stance Dynamic Sitting Good Balance Ability Dynamic Standing Fair Balance Ability Transfers Bed Transfer Ability Supervision/Stand by Sit to Stand Bed Supervision/Stand by Transfer Ability Rehab PT IP prob,goals,plan Problems Date of Evaluation: 01/25/25 PT IP Problems Bed Mobility,Transfers,Gait,Balance,Self care,Safety Rehab Potential Rehab Potential Good Plan PT Intervention Plan Bed Mobility,Transfers,Gait,Balance,Self care,Safety, Therapeutic Exercise Other Intervention 1-2 times Plan PT Plan Frequency Daily Duration LOS Discharge Goals Bed Transfer Ability Independent Sit to Stand Chair Independent Transfer Ability Ambulation Distance 100 (feet) Discharge Plan PT Discharge Plan Pt most appropriate to d/c home to [facility] with use of rollator. Pt would benefit from PT services to address strength, balance, and endurance. Pt would benefit from skilled PT while at [facility] to address general strength and prevent functional decline. Eval Complexity Eval Charge Codes 40997 - Moderate Complexity PHYSICIAN CERTIFICATION: I certify the specified therapy services for Jovan York are required, authorized, and reviewed every 30 days.
--- NOTE | 2025-01-25 11:08 | P.PN_ITS ---
Subjective Subjective Date: 01/25/25 Time: 11:08 Principal diagnosis: Postprocedure observation Interval history: 64-year-old white male with history of PAD, hypertension and recent abnormal stress test was in the Operating Room Surgical Technician yesterday for procedure and due to size of the catheter/sheath used in the right femoral artery it was felt that the patient needed to be observed overnight. After the sheath was pulled patient did experience some right femoral bleeding with subsequent manual pressure that achieved control of the bleeding. Patient had no problems overnight. Right femoral site looks good with evidence of hematoma noted. Patient has very poor peripheral pulses but both feet are warm. Exam Data for Last 24 hours Vital signs and Labs for Last 24 Hours: Temp Pulse Resp BP Pulse Ox O2 Del Method 98.0 F 70 17 129/49 L 96 Room Air 01/25/25 08:00 01/25/25 08:00 01/25/25 08:00 01/25/25 08:00 01/25/25 08:00 01/25/25 08:28 Laboratory Results - last 24 hr 01/24/25 13:21: Activated Clotting Time 259 H* 01/25/25 05:34: WBC 9.3, RBC 4.58 L, Hgb 11.4 L, Hct 37.0 L, MCV 80.8, MCH 24.9 L, MCHC 30.8 L, RDW 19.0 H, Plt Count 330, MPV 11.3 H, Neut % (Auto) 48.9, Lymph % (Auto) 38.0, [place] % (Auto) 9.8 H, Eos % (Auto) 2.7, Baso % (Auto) 0.3, Neut # (Auto) 4.6, Lymph # (Auto) 3.5, [place] # (Auto) 0.9, Eos # (Auto) 0.3, Baso # (Auto) 0.0, PT 12.0, INR 1.09, Sodium 137, Potassium 4.2, Chloride 103, Carbon Dioxide 23, Anion Gap 15.2 H, BUN 11, Creatinine 0.90, Estimated Creat Clear 70, Estimated GFR 86, Est GFR ( Amer) 103, Glucose 65 L, Calcium 8.7, Magnesium 1.8 I & O for Last 24 hours: Intake & Output 01/22/25 01/23/25 01/24/25 01/25/25 11:59 11:59 11:59 11:59 Intake Total 444.583 / 444.583 Output Total 725 / 725 Balance -280.417 / -280.417 Weight 142 lb 141 lb 9.6 oz *Routine Cardiovascular Exam Cardiovascular: Present RRR; Absent murmur, gallop or rubs *Routine Extremities Exam Extremities: Absent edema Comments: Unable to appreciate dorsalis pedis pulses of both feet however both feet are warm to touch Progress Note: A&P Assessment and plan (1) PAD (peripheral artery disease): Status: Acute (2) Abnormal ankle brachial index (DELMI): Status: Acute (3) Anemia: Status: Acute Assessment and Plan Assessment and Plan for All Diagnoses:: 1. PAD with subsequent stenting of left common and external iliac artery with 2 bare-metal stents. -Persistent right proximal SFA stenosis of 80%. Two-vessel runoff below the knee of the right leg and single-vessel runoff below the knee of the left leg -Recommend combination of aspirin 81 mg daily and and Xarelto 2.5 mg BID -If patient experiences intractable right leg claudication then he could be brought back to the Operating Room Surgical Technician and undergo drug-coated balloon angioplasty of the right SFA 2. Abnormal stress test -Plan will be to bring the patient back to the Operating Room Surgical Technician in 2 weeks to undergo radial artery access and perform cardiac catheterization for the abnormal stress test -Continue aspirin 81 mg daily, atorvastatin 40 mg daily, Plavix 75 mg daily Due to bleeding post sheath pull, would recommend obtaining arterial ultrasound today. If no evidence of pseudoaneurysm is seen then patient can be discharged home with follow-up next week. Home medication recommendations: Aspirin 81 mg daily (stop after 30 days) Plavix 75 mg daily Xarelto 2.5 mg twice daily Atorvastatin 40 mg daily Lisinopril 5 mg daily
--- NOTE | 2025-01-25 11:18 | SW/DCPLANNER ---
Addendum entered by Jenny Bishop 01/25/25 14:24: Spoke with Diakita at [facility] and she stated that patient has been accepted. Original Note: Spoke with patient and patient requested home health and i faxed his information to [facility] and will update once i hear back if they can accept or not. Valery CARROLL [employer]
[2025-01-25 12:00] VITALS: BP 130/52; PULSE 80; RESP 18; TEMP 36.8; O2SAT 96
--- NOTE | 2025-01-29 10:05 | SW/DCPLANNER ---
Spoke with Ila at [facility]. Ila stated that patient is doing good. Ila stated that she is aware of his upcoming appointments and that she has his bus scheduled to take him. Ila stated that he has his medicine also. Ila stated that she has no concerns or questions at this time. Valery CARROLL [facility]
== END 2025-01-25 13:40 | disposition home health service (06) ==
LOC: 2ND 14:04
PROVIDERS: Admitting Provider Internal Medicine; Visit Provider Student in an Organized Health Care Education/Training Program
DX: I70.213 Atherosclerosis of native arteries of extremities with intermittent claudication, bilateral legs (principal); R94.39 Abnormal result of other cardiovascular function study; R93.1 Abnormal findings on diagnostic imaging of heart and coronary circulation; D64.9 Anemia, unspecified; I10 Essential (primary) hypertension; R06.00 Dyspnea, unspecified; J44.9 Chronic obstructive pulmonary disease, unspecified; R68.89 Other general symptoms and signs; Z86.73 Personal history of transient ischemic attack (TIA), and cerebral infarction without residual deficits; F17.210 Nicotine dependence, cigarettes, uncomplicated; Z95.5 Presence of coronary angioplasty implant and graft; Z79.01 Long term (current) use of anticoagulants; Z79.82 Long term (current) use of aspirin; Z79.899 Other long term (current) drug therapy; Z82.3 Family history of stroke
CPT/HCPCS: 36415; 37221; 80048; 83735; 85025; 85347; 85610; 93926; 97162; 97166; 99152; 99153; C1725; C1766; C1769; C1876; C1894; G0378; J1200; J1644; J2003; J3010; J7040; Q9966; Q9967

== ENCOUNTER 2025-02-04 12:35 | Outpatient (CLI) | payer MEDICAID, SELFPAY ==
--- OUTSIDE RECORDS SUMMARY | 2025-02-06 12:45 | XMS_ITS | Clinical Summary ---
Author Organization [facility] are -Transitions Address [address] [place] [phone] Phone Care Team Providers Care Facility Service Associate Name Role Phone Darshana Hoffmann APRN Primary [...] mass index [BMI] 25.0-25.9, adult Leg cramps 602177718 (SNOMED CT) 05/05 Active 05/05 Darshana Hoffmann APRN Cramp in lower limb Leg pain, bilateral 70831498 (SNOMED CT) 04/21 Active 04/21 Akilah Elder BASS VIOL REPAIRER Pain in lower limb Body mass index (BMI) 25.0-25.9; adult Z68.25 (ICD-10-CM) 04/21 Removed 04/21 Akilah Elder BASS VIOL REPAIRER Body mass index [BMI] 25.0-25.9, adult Body mass index (BMI) 21.0-21.9; adult Z68.21 (ICD-10-CM) Correctio n Akilah Elder APRN Body mass index [BMI] 21.0-21.9, adult Sore throat (acute) 645812933 (SNOMED CT) 04/21 Inactive 04/21 Akilah Mejíazenobia BASS VIOL REPAIRER Pain in throat Runny nose 56013797 (SNOMED CT) 04/21 Inactive 04/21 Akilah Elder BASS VIOL REPAIRER Rhinitis Body mass index (BMI) 21.0-21.9; adult Z68.21 (ICD-10-CM) Removed Junejennifer Salazar BASS VIOL REPAIRER Body mass index [BMI] 21.0-21.9, adult Body mass index (BMI) 20.0-20.9; adult Z68.20 (ICD-10-CM) Correctio n Junejennifer Ayalamary anne BASS VIOL REPAIRER Body mass index [BMI] 20.0-20.9, adult Neck pain, chronic 32036554961 07 (SNOMED CT) Active Deepti Ayalamary anne BASS VIOL REPAIRER Chronic neck pain Body mass index (BMI) [...] or less, adult Screening for diabetes mellitus 949098153 (SNOMED CT) 08/19 Inactive 08/19 Darshana Potts APRN Diabetes mellitus screening Screening for prostate cancer 142188965 (SNOMED CT) 08/19 Inactive 08/19 Darshana Potts BASS VIOL REPAIRER Screening for malignant neoplasm of prostate Hx of CVA 075485830 (SNOMED CT) 08/19 Active 08/19 Darshana Potts BASS VIOL REPAIRER History of cerebrovascula r accident RIGHT PONTINE STROKE Tobacco User 152702853 (SNOMED CT) 08/19 Active 08/19 Darshana Potts BASS VIOL REPAIRER Tobacco user Hx of alcohol abuse 168306573 (SNOMED CT) 08/19 Active 08/19 Darshana Potts APRN History of alcohol abuse Hx of iron deficiency anemia 237272860 (SNOMED CT) 08/19 Active 08/19 Darshana Potts APRN H/O: anemia - iron deficient Screening for colon cancer 213905566 (SNOMED CT) 08/19 Inactive 08/19 Darshana Potts APRN Screening for malignant neoplasm of colon CLOSED FRACTURE OF NAVICULAR BONE OF WRIST S62.009 (ICD-10-CM) 11/29 Active 11/29 Pratik Monique MD Unspecified fracture of navicular [scaphoid] bone of unspecified wrist FRACTURE, WRIST, RIGHT 46148766 (SNOMED CT) 11/23 Active 11/23 Pratik Monique MD Fracture of carpal bone HYPERTENSIO N 53436837 (SNOMED CT) 11/22 Active 11/22 Pratik Monique MD Hypertensive disorder ALCOHOL ABUSE 65349942 (SNOMED CT) 11/22 Active 11/22 Pratik Monique [...] TABLETS IN 24 HOURS. FOR DIARRHEA loperamide 85683846618 Darshana Hoffmann APRN LOPERAMIDE HCL 2 MG TABS TAKE 2 TABLETS BY MOUTH ONCE THEN TAKE 1 TABLET AFTER EACH LOOSE BOWEL MOVEMENT. MAX 6 TABLETS IN 24 HOURS. as neededFOR DIARRHEA loperamide 25643003143 Darshana Hoffmann APRN iron 325 mg (65 mg iron) tablet Take 1 tablet by mouth once a day ferrous sulfate 87083932274 Darshana Hoffmann APRN LORATADINE 10 MG TABS as needed as directed TAKE 1 TABLET BY MOUTH EVERY DAY for runny nose and allergies loratadine 16619150232 Akilah Elder APRN FLUTICASONE PROPIONATE 50 MCG/ACT SUSP [place] 2 spray into both nostrils once a day as needed as directed FOR NASAL CONGESTION fluticasone propionate 98270852148 Akilah Elder APRN COUGH DROPS 5 MG LOZG Hold 1 lozenge in mouth four times a day as needed for cough/sore throat menthol 67632644515 Akilah Elder APRN NICODERM CQ 14 MG/24HR PT24 Apply 1 patch to skin once a day remove and replace patch daily for 6 weeks nicotine 02794126063 Deepti Salazar APRN ACETAMINOPHEN 500 MG TABS Take 1 tablet by mouth every six to eight hours as needed for pain for neck pain acetaminophen 14134341096 Deepti Salazar APRN ATORVASTATIN CALCIUM 40 MG TABS Take 1 tablet by mouth every night atorvastatin 99946987534 Darshana Hoffmann APRN CLOPIDOGREL BISULFATE 75 MG TABS TAKE 1 TABLET BY MOUTH EVERY DAY clopidogrel 74364716780 Darshana Hoffmann APRN ESCITALOPRAM OXALATE 10 MG TABS Take 1 tablet by mouth once a day escitalopram oxalate 52084959133 Darshana Hoffmann APRN LISINOPRIL 5 MG TABS Take 1 tablet by mouth once a day lisinopril 84090544535 Darshana Hoffmann APRN OXCARBAZEPINE 150 MG TABS 1 tablet by mouth twice a day oxcarbazepine 09431026633 Darshana Hoffmann APRN PANTOPRAZOLE SODIUM 40 MG TBEC Take 1 tablet by mouth once a day pantoprazole 21734848610 Darshana Hoffmann APRN TAMSULOSIN HCL 0.4 MG CAPS Take 1 capsule by mouth every night for prostate tamsulosin 36169856564 Darshana Hoffmann APRN TRAZODONE HCL 50 MG TABS Take 1 tablet by mouth every night at bedtime as needed as directed trazodone 27787263241 Darshana Hoffmann APRN ATORVASTATIN CALCIUM 40 MG TABS Take 1 tablet by mouth every night atorvastatin 75985232341 Darshana Potts APRN AMLODIPINE BESYLATE 5 MG TABS Take 1 tablet by mouth once a day amlodipine 00762706170 Darshana Potts APRN AMLODIPINE BESYLATE 5 MG TABS TAKE 1 TABLET BY MOUTH 1 TIME A DAY AMLODIPINE BESYLATE 85669730955 Pratik Monique MD Medications Administered No information [...] in Blood ABS NEUTROPH 4388 CELLS/UL 10*3/uL 1908-0007 N Neutrophils [#/volume] in Blood MPV 11.4 [...] Plan of Care Type Date Detail Referral [facility] [place], [address] Pending order T1 CBC with diff Pending [...] docu mented in medical record [facility]-[id number] Medication Reconciliation 4004F Patient screened for tobacco use and received tobacco cessation intervention [id number] Current every day smoker 20 11/03/18 [id number] Smoking cessation education CPT-1160F Review of all medica tions by a prescribing practitioner [facility] 6399 T1 CBC with diff [facility] 98621 T1 CMP [id number] Medication Reconciliation CPT-3074F Most recent systolic blood pressure <130 mm Hg CPT-3078F Most recent diastoli c blood pressure <80 mm Hg CPT-1159F Medication list docu mented in medical record CPT-1160F Review of all medica tions by a prescribing practitioner 4004F Patient screened for tobacco use and received tobacco cessation intervention [id number] Current every day smoker 20 11/03/04 [id number] Smoking cessation education [id number] Giving encouragement to exercise 4004F Patient screened for tobacco use and received tobacco cessation intervention [id number] Medication Reconciliation CPT-3074F Most recent systolic blood pressure <130 mm Hg CPT-3078F Most recent diastoli c blood pressure <80 mm Hg CPT-1159F Medication list docu mented in medical record CPT-1160F Review of all medica tions by a prescribing practitioner [id number] Medication Reconciliation 4004F Patient screened for tobacco use and received tobacco cessation intervention [id number] Current every day smoker 20 08/02/29 [id number] Smoking cessation education CPT-3074F Most recent systolic [...] c blood pressure <80 mm Hg [facility] 91528 T1 G.C. Chlamydia 4004F Patient screened for tobacco use and received tobacco cessation intervention [facility]-[id number] Medication Reconciliation [facility] 6399 T1 CBC with diff [facility] 06258 T1 CMP [facility] 496 T1 HGBA1c [facility] 91382 T1 TSH reflex to free T4 06/21/03 [facility] 5363 T1 Prostate Screening 08/19 [facility] 87221 T1 Acute Hepatits Panel 2022 [facility] 7573 [...]
--- OUTSIDE RECORDS SUMMARY | 2025-02-06 12:47 | XMS_ITS | Clinical Summary ---
Author Organization [facility] Address [facility] [place] [address] Phone Care Team Providers Care Decatizer Name Role Phone Brandy Martell Unavailable [phone] Conditions or Problems No information available. Medications No information available. Medications Administered No information available. Allergies, Adverse Reactions, Alerts No information available. Results No information available. Plan of Care No information available. Procedures No information available. Vital Signs No information available. Immunizations No information available. Advance Directives No information available.
== END 2025-02-04 23:59 ==
LOC: LAB.DROPOF 02-06 12:35
PROVIDERS: Visit Provider Podiatrist
DX: L97.529 Non-pressure chronic ulcer of other part of left foot with unspecified severity (principal)
CPT/HCPCS: 87070; 87205

== ENCOUNTER 2025-02-07 08:52 | Outpatient (CLI) | payer MEDICAID, SELFPAY ==
--- NOTE | 2025-02-07 08:53 | XR_ITS ---
FINAL REPORT CLINICAL HISTORY: left hand pain COMPARISON: none FINDINGS: Three views of the left hand show no evidence of acute displaced fracture or dislocation of the visualized bony architecture. There are diffuse arthritic changes most pronounced at the 2nd and 3rd MCP joints. Generalized osteopenia is noted. 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 Reviewed, Interpreted and Dictated by Efren Soto MD Transcribed by Aditi Lombardi Authenticated and . [facility]
--- OUTSIDE RECORDS SUMMARY | 2025-02-07 08:59 | XMS_ITS | Clinical Summary ---
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 Role Phone Darshana Hoffmann APRN Primary [...] mass index [BMI] 25.0-25.9, adult Leg cramps 980941367 (SNOMED CT) 05/05 Active 05/05 Darsahna Hoffmann APRN Cramp in lower limb Leg pain, bilateral 95082111 (SNOMED CT) 04/21 Active 04/21 Akilah Elder IRRIGATION SERVICE TECHNICIAN Pain in lower limb Body mass index (BMI) 25.0-25.9; adult Z68.25 (ICD-10-CM) 04/21 Removed 04/21 Akilah Elder IRRIGATION SERVICE TECHNICIAN Body mass index [BMI] 25.0-25.9, adult Body mass index (BMI) 21.0-21.9; adult Z68.21 (ICD-10-CM) Correctio n Akilah Elder APRN Body mass index [BMI] 21.0-21.9, adult Sore throat (acute) 562977121 (SNOMED CT) 04/21 Inactive 04/21 Akilah Mejíazenobia IRRIGATION SERVICE TECHNICIAN Pain in throat Runny nose 45230102 (SNOMED CT) 04/21 Inactive 04/21 Akilah Elder IRRIGATION SERVICE TECHNICIAN Rhinitis Body mass index (BMI) 21.0-21.9; adult Z68.21 (ICD-10-CM) Removed Junejennifer Salazar IRRIGATION SERVICE TECHNICIAN Body mass index [BMI] 21.0-21.9, adult Body mass index (BMI) 20.0-20.9; adult Z68.20 (ICD-10-CM) Correctio n Junejennifer Ayalamary anne IRRIGATION SERVICE TECHNICIAN Body mass index [BMI] 20.0-20.9, adult Neck pain, chronic 04991964028 07 (SNOMED CT) Active Deepti Ayalamary anne IRRIGATION SERVICE TECHNICIAN Chronic neck pain Body mass index (BMI) [...] or less, adult Screening for diabetes mellitus 532038050 (SNOMED CT) 08/19 Inactive 08/19 Darshana Potts APRN Diabetes mellitus screening Screening for prostate cancer 566513760 (SNOMED CT) 08/19 Inactive 08/19 Darshana Potts IRRIGATION SERVICE TECHNICIAN Screening for malignant neoplasm of prostate Hx of CVA 632181992 (SNOMED CT) 08/19 Active 08/19 Darshana Potts IRRIGATION SERVICE TECHNICIAN History of cerebrovascula r accident RIGHT PONTINE STROKE Tobacco User 871708754 (SNOMED CT) 08/19 Active 08/19 Darshana Potts IRRIGATION SERVICE TECHNICIAN Tobacco user Hx of alcohol abuse 452355018 (SNOMED CT) 08/19 Active 08/19 Darshana Potts APRN History of alcohol abuse Hx of iron deficiency anemia 806486604 (SNOMED CT) 08/19 Active 08/19 Darshana Potts APRN H/O: anemia - iron deficient Screening for colon cancer 091195965 (SNOMED CT) 08/19 Inactive 08/19 Darshana Potts APRN Screening for malignant neoplasm of colon CLOSED FRACTURE OF NAVICULAR BONE OF WRIST S62.009 (ICD-10-CM) 11/29 Active 11/29 Pratik Monique MD Unspecified fracture of navicular [scaphoid] bone of unspecified wrist FRACTURE, WRIST, RIGHT 17369148 (SNOMED CT) 11/23 Active 11/23 Pratik Monique MD Fracture of carpal bone HYPERTENSIO N 67130412 (SNOMED CT) 11/22 Active 11/22 Pratik Monique MD Hypertensive disorder ALCOHOL ABUSE 82952857 (SNOMED CT) 11/22 Active 11/22 Pratik Monique [...] TABLETS IN 24 HOURS. FOR DIARRHEA loperamide 78182592881 Darshana Hoffmann APRN LOPERAMIDE HCL 2 MG TABS TAKE 2 TABLETS BY MOUTH ONCE THEN TAKE 1 TABLET AFTER EACH LOOSE BOWEL MOVEMENT. MAX 6 TABLETS IN 24 HOURS. as neededFOR DIARRHEA loperamide 44401393938 Darshana Hoffmann APRN iron 325 mg (65 mg iron) tablet Take 1 tablet by mouth once a day ferrous sulfate 42629577009 Darshana Hoffmann APRN LORATADINE 10 MG TABS as needed as directed TAKE 1 TABLET BY MOUTH EVERY DAY for runny nose and allergies loratadine 05438858758 Akilah Elder APRN FLUTICASONE PROPIONATE 50 MCG/ACT SUSP [place] 2 spray into both nostrils once a day as needed as directed FOR NASAL CONGESTION fluticasone propionate 50135064990 Akilah Elder APRN COUGH DROPS 5 MG LOZG Hold 1 lozenge in mouth four times a day as needed for cough/sore throat menthol 57597219669 Akilah Elder APRN NICODERM CQ 14 MG/24HR PT24 Apply 1 patch to skin once a day remove and replace patch daily for 6 weeks nicotine 02688404861 Deepti Salazar APRN ACETAMINOPHEN 500 MG TABS Take 1 tablet by mouth every six to eight hours as needed for pain for neck pain acetaminophen 87318975662 Deepti Salazar APRN ATORVASTATIN CALCIUM 40 MG TABS Take 1 tablet by mouth every night atorvastatin 00052939072 Darshana Hoffmann APRN CLOPIDOGREL BISULFATE 75 MG TABS TAKE 1 TABLET BY MOUTH EVERY DAY clopidogrel 74833279290 Darshana Hoffmann APRN ESCITALOPRAM OXALATE 10 MG TABS Take 1 tablet by mouth once a day escitalopram oxalate 51938959913 Darshana Hoffmann APRN LISINOPRIL 5 MG TABS Take 1 tablet by mouth once a day lisinopril 15440030910 Darshana Hoffmann APRN OXCARBAZEPINE 150 MG TABS 1 tablet by mouth twice a day oxcarbazepine 87145318363 Darshana Hoffmann APRN PANTOPRAZOLE SODIUM 40 MG TBEC Take 1 tablet by mouth once a day pantoprazole 70557372718 Darshana Hoffmann APRN TAMSULOSIN HCL 0.4 MG CAPS Take 1 capsule by mouth every night for prostate tamsulosin 97004132183 Darshana Hoffmann APRN TRAZODONE HCL 50 MG TABS Take 1 tablet by mouth every night at bedtime as needed as directed trazodone 01636652027 Darshana Hoffmann APRN ATORVASTATIN CALCIUM 40 MG TABS Take 1 tablet by mouth every night atorvastatin 57302714057 Darshana Potts APRN AMLODIPINE BESYLATE 5 MG TABS Take 1 tablet by mouth once a day amlodipine 95759244490 Darshana Potts APRN AMLODIPINE BESYLATE 5 MG TABS TAKE 1 TABLET BY MOUTH 1 TIME A DAY AMLODIPINE BESYLATE 52867407547 Pratik Monique MD Medications Administered No information [...] in Blood ABS NEUTROPH 4388 CELLS/UL 10*3/uL 3605-2771 N Neutrophils [#/volume] in Blood MPV 11.4 [...] Plan of Care Type Date Detail Referral [facility] [place], [address] Pending order T1 CBC with diff Pending [...] Medication list docu mented in medical record [facility]-[id number] Medication Reconciliation 4004F Patient screened for tobacco use and received tobacco cessation intervention [id number] Current every day smoker 20 11/03/18 [id number] Smoking cessation education CPT-1160F Review of all medica tions by a prescribing practitioner [facility] 6399 T1 CBC with diff [facility] 95331 T1 CMP [id number] Medication Reconciliation CPT-3074F Most recent systolic blood pressure <130 mm Hg CPT-3078F Most recent diastoli c blood pressure <80 mm Hg CPT-1159F Medication list docu mented in medical record CPT-1160F Review of all medica tions by a prescribing practitioner 4004F Patient screened for tobacco use and received tobacco cessation intervention [id number] Current every day smoker 20 11/03/04 [id number] Smoking cessation education [id number] Giving encouragement to exercise 4004F Patient screened for tobacco use and received tobacco cessation intervention [id number] Medication Reconciliation CPT-3074F Most recent systolic blood pressure <130 mm Hg CPT-3078F Most recent diastoli c blood pressure <80 mm Hg CPT-1159F Medication list docu mented in medical record CPT-1160F Review of all medica tions by a prescribing practitioner [id number] Medication Reconciliation 4004F Patient screened for tobacco use and received tobacco cessation intervention [id number] Current every day smoker 20 08/02/29 [id number] Smoking cessation education CPT-3074F Most recent systolic [...] c blood pressure <80 mm Hg [facility] 90079 T1 G.C. Chlamydia 4004F Patient screened for tobacco use and received tobacco cessation intervention [facility]-[id number] Medication Reconciliation [facility] 6399 T1 CBC with diff [facility] 12963 T1 CMP [facility] 496 T1 HGBA1c [facility] 23635 T1 TSH reflex to free T4 06/21/03 [facility] 5363 T1 Prostate Screening 08/19 [facility] 16651 T1 Acute Hepatits Panel 2022 [facility] 7573 [...]
--- OUTSIDE RECORDS SUMMARY | 2025-02-07 09:00 | XMS_ITS | Clinical Summary ---
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 Medications No information available. Medications Administered No information available. Allergies, Adverse Reactions, Alerts No information available. Results No information available. Plan of Care No information available. Procedures No information available. Vital Signs No information available. Immunizations No information available. Advance Directives No information available.
== END 2025-02-07 23:59 | disposition home or self-care (01) ==
LOC: RAD 08:53
PROVIDERS: Visit Provider Physician Assistant
DX: M19.042 Primary osteoarthritis, left hand (principal); M85.842 Other specified disorders of bone density and structure, left hand; Z89.022 Acquired absence of left finger(s)
CPT/HCPCS: 73130

== ENCOUNTER 2025-02-15 08:29 | Day surgery (SDC) | payer MEDICAID, SELFPAY ==
[2025-02-15] VITALS (10 sets, daily range): BP systolic 127–166; BP diastolic 68–97; PULSE 60–71; RESP 18–20; O2SAT 90–100; BMI 20.9
--- NOTE | 2025-02-15 07:16 | IR_ITS ---
APPROVED REPORT Patient Location: Outpatient PROCEDURES Left heart catheterization Left ventriculogram Selective coronary angiogram Drug-eluting stent deployment to the proximal and mid dominant right coronary INDICATION Coronary artery disease, Abnormal Myoview with inferior ischemia, Angina pectoris Informed consent was obtained prior to the procedure. COMPLICATIONS NONE Estimated Blood Loss: LESS THAN 10 ML TECHNIQUE One percent lidocaine used to anesthetize the right anterior aspect of the wrist. The right radial artery was accessed via the Seldinger technique. A 6 Hebrew sheath was placed in the right radial artery. 2.5 mg of Verapamil, 800 mcg of nitroglycerin, 1mg Lidocaine and 5000 U Heparin were given through the arterial sheath. The JL3 catheter was also used to perform left heart catheterization, left ventriculogram and selective coronary angiogram. At the end the diagnostic angiogram therapeutic heparin was administered giving a therapeutic ACT and the guide catheter was placed in the right coronary followed by Choice PT extra-support wire placed distally. 3.5 x 38 mm Bonner frontier stent was deployed at 16 trista in the proximal to mid dominant right coronary. This was followed by a 3.5 x 15 mm Toño frontier stent placed distal to the for stent yet still overlapping and deployed at 16 trista. The balloon was brought back and deployed at 20 then 22 and then 24 trista to post dilate. MADHAVI-3 flow was present before and after the procedure. At the end the procedure the apparatus was removed the sheath was removed and hemostasis was achieved using TR banding patient was transferred to the postop boarding in stable condition ANGIOGRAPHIC RESULTS The left main artery Normal The left anterior descending artery Has proximal 10% luminal regularities with mid vessel 10 to 20% luminal regularities accompanied by moderate diffuse tortuosity The circumflex artery Nondominant with 10 to 20% luminal regularities The right coronary artery Large dominant with proximal 40% and mid vessel 50 to 60% stenosis The WILLSON ventriculogram reveals Hyperdynamic 75 to 80% The left ventricular end-diastolic pressure 10 mmHg IMPRESSION Coronary artery disease as described above Successful stenting of the proximal and mid dominant right coronary artery hemodynamically severe disease reduced to 0% with 2 contiguous drug-eluting stents Hyperdynamic ventricle Normal LVEDP Highly tortuous LAD consistent with hypertensive heart disease PLAN 1. Dual antiplatelet therapy 2. Cardiac rehabilitation 3. Avoidance of tobacco products 4. Risk factor modification 5. LDL less than 55 to be achieved with high intensity statin Electronically signed by : Dioni Lopez MD 02/15/2025 10:31:34
[2025-02-15 08:55] LABS: Hematocrit 42.7 % (42.0-52.0); Hemoglobin 13.6 g/dL (14.1-18.0); Immature Granulocytes % 0.2 %; Mean Corpuscular HGB Conc 31.9 g/dL (31.8-35.4); Mean Corpuscular Hemoglobin 26.1 pg (27.0-31.2); Mean Corpuscular Volume 81.8 fl (80-94); Nucleated Red Blood Cells % 0 %; Platelet Count 359 K/mm3 (142-424); Red Blood Count 5.22 M/mm3 (4.60-6.20); Red Cell Distribution Width-SD 55.0 fL; White Blood Count 10.6 K/mm3 (4.8-10.8)
[2025-02-15 09:09] LABS: Chloride 105 mmol/L (98-107); Potassium 4.4 mmoL/L (3.5-5.1); Sodium 141 mmol/L (136-145)
[2025-02-15 09:12] LABS: Anion Gap 14.4 mEq/L (5-15); Carbon Dioxide 26 mmol/L (22.0-30.0)
[2025-02-15 09:13] LABS: Calcium 9.4 mg/dl (8.4-10.2); Glucose 106 mg/dl (74-100)
[2025-02-15 09:18] LABS: Blood Urea Nitrogen 13 mg/dl (9-20); Creatinine Clearance Estimated 70 mL/min (50-200); Creatinine,Serum 0.70 mg/dl (0.66-1.25); Estimated Glomerular Filt Rate 114 ml/min (>60); GFR (African American) 138 ML/MIN (>60)
[2025-02-15] MEDS: HEPARIN 1,000 UNITS/ML 10ML VIAL (CATH LAB) 5000 UNIT IV (10:01)
[2025-02-15] MEDS: VERAPAMIL 2.5MG/ML 2ML VIAL 2.5 MG IV (10:01)
[2025-02-15] MEDS: HEPARIN 1,000 UNITS/500ML NS (CATH LAB) 3000 UNIT IV (10:01)
[2025-02-15] MEDS: LIDOCAINE 1% 10ML MDV 10 ML IJ (10:02)
[2025-02-15] MEDS: NITROGLYCERIN 800MCG/8ML SYR (CATH LAB) 800 MCG IA (10:02)
[2025-02-15] MEDS: MIDAZOLAM HCL 1MG/ML 5ML VIAL 1 MG IV (10:09)
[2025-02-15] MEDS: IOPAMIDOL-370 (76%);100ML BOTTLE 60 ML IV (14:56)
[2025-02-15 15:00] LABS: CATHL Activated Clotting Time > 400 SEC (74-125)
== END 2025-02-15 13:57 | disposition home or self-care (01) ==
PROVIDERS: Visit Provider Internal Medicine
PROC: 4A023N7 Measurement of Cardiac Sampling and Pressure, Left Heart, Percutaneous Approach (ICD-10-PCS; CPT 93452; principal; 2025-02-15 09:10)
DX: I25.119 Atherosclerotic heart disease of native coronary artery with unspecified angina pectoris (principal); R94.39 Abnormal result of other cardiovascular function study; R06.00 Dyspnea, unspecified; I73.9 Peripheral vascular disease, unspecified; R68.89 Other general symptoms and signs; I10 Essential (primary) hypertension; F17.210 Nicotine dependence, cigarettes, uncomplicated; Z79.01 Long term (current) use of anticoagulants; Z79.82 Long term (current) use of aspirin; Z79.899 Other long term (current) drug therapy
CPT/HCPCS: 80048; 85025; 85347; 92928; 93458; 99152; C1725; C1769; C1874; C9600; J1200; J1644; Q9967

== ENCOUNTER 2025-02-21 13:44 | Outpatient (CLI) | payer MEDICAID, SELFPAY ==
--- NOTE | 2025-02-21 13:45 | CT_ITS ---
FINAL REPORT TECHNIQUE: Axial images of the left foot was obtained with and without contrast by computed tomography. Sagittal coronal reformatted images were obtained and reviewed. This study was performed with techniques to keep radiation doses as low as reasonably achievable, (ALARA). Individualized dose reduction techniques using automated exposure control or adjustment of mA and/or kV according to the patient's size were employed. CLINICAL HISTORY: Evaluation of left arterial ulcer COMPARISON: 10/29/2024 FINDINGS: The bones are osteopenic. There are moderate hypertrophic changes of the first metatarsal phalangeal joint. Hallux valgus deformity is identified. There is mild overlying soft tissue thickening. There is no evidence of subcutaneous emphysema. There is no evidence of abnormal contrast-enhancement. The remaining structures are intact. Hammertoe deformity is seen involving the 2nd through 5th digits. 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 Hammertoe deformity of the 2nd through 5th digits. Reviewed, Interpreted and Dictated by Saul Prince MD Transcribed by Rissa Mendez Authenticated and [facility]
--- OUTSIDE RECORDS SUMMARY | 2025-02-21 13:51 | XMS_ITS | Clinical Summary ---
Author Organization [facility] Address [facility] [place] [address] Phone Care Team Providers Care Leaded Glass Installer Name Role Phone Brandy Martell Unavailable [phone] Conditions or Problems No information available. Medications No information available. Medications Administered No information available. Allergies, Adverse Reactions, Alerts No information available. Results No information available. Plan of Care No information available. Procedures No information available. Vital Signs No information available. Immunizations No information available. Advance Directives No information available.
--- OUTSIDE RECORDS SUMMARY | 2025-02-21 13:51 | XMS_ITS | Clinical Summary ---
Author Organization [facility] are -Transitions Address [address] [place] [phone] Phone Care Team Providers Care Knocker Off Name Role Phone Darshana Hoffmann APRN Primary [...] mass index [BMI] 25.0-25.9, adult Leg cramps 733969106 (SNOMED CT) 05/05 Active 05/05 Darshana Hoffmann APRN Cramp in lower limb Leg pain, bilateral 29511127 (SNOMED CT) 04/21 Active 04/21 Akilah Elder DEPARTMENT OF MATHEMATICS CHAIR Pain in lower limb Body mass index (BMI) 25.0-25.9; adult Z68.25 (ICD-10-CM) 04/21 Removed 04/21 Akilah Elder DEPARTMENT OF MATHEMATICS CHAIR Body mass index [BMI] 25.0-25.9, adult Body mass index (BMI) 21.0-21.9; adult Z68.21 (ICD-10-CM) Correctio n Akilah Elder APRN Body mass index [BMI] 21.0-21.9, adult Sore throat (acute) 271345123 (SNOMED CT) 04/21 Inactive 04/21 Akilah Mejíazenobia DEPARTMENT OF MATHEMATICS CHAIR Pain in throat Runny nose 59221390 (SNOMED CT) 04/21 Inactive 04/21 Akilah Elder DEPARTMENT OF MATHEMATICS CHAIR Rhinitis Body mass index (BMI) 21.0-21.9; adult Z68.21 (ICD-10-CM) Removed Junejennifer Salazar DEPARTMENT OF MATHEMATICS CHAIR Body mass index [BMI] 21.0-21.9, adult Body mass index (BMI) 20.0-20.9; adult Z68.20 (ICD-10-CM) Correctio n Junejennifer Ayalamary anne DEPARTMENT OF MATHEMATICS CHAIR Body mass index [BMI] 20.0-20.9, adult Neck pain, chronic 33399664959 07 (SNOMED CT) Active Deepti Ayalamary anne DEPARTMENT OF MATHEMATICS CHAIR Chronic neck pain Body mass index (BMI) [...] or less, adult Screening for diabetes mellitus 926051102 (SNOMED CT) 08/19 Inactive 08/19 Darshana Potts APRN Diabetes mellitus screening Screening for prostate cancer 154051101 (SNOMED CT) 08/19 Inactive 08/19 Darshana Potts DEPARTMENT OF MATHEMATICS CHAIR Screening for malignant neoplasm of prostate Hx of CVA 458600762 (SNOMED CT) 08/19 Active 08/19 Darshana Potts DEPARTMENT OF MATHEMATICS CHAIR History of cerebrovascula r accident RIGHT PONTINE STROKE Tobacco User 607219624 (SNOMED CT) 08/19 Active 08/19 Darshana Potts DEPARTMENT OF MATHEMATICS CHAIR Tobacco user Hx of alcohol abuse 998558136 (SNOMED CT) 08/19 Active 08/19 Darshana Potts APRN History of alcohol abuse Hx of iron deficiency anemia 942616320 (SNOMED CT) 08/19 Active 08/19 Darshana Potts APRN H/O: anemia - iron deficient Screening for colon cancer 351503598 (SNOMED CT) 08/19 Inactive 08/19 Darshana Potts APRN Screening for malignant neoplasm of colon CLOSED FRACTURE OF NAVICULAR BONE OF WRIST S62.009 (ICD-10-CM) 11/29 Active 11/29 Pratik Monique MD Unspecified fracture of navicular [scaphoid] bone of unspecified wrist FRACTURE, WRIST, RIGHT 87884544 (SNOMED CT) 11/23 Active 11/23 Pratik Monique MD Fracture of carpal bone HYPERTENSIO N 00420494 (SNOMED CT) 11/22 Active 11/22 Pratik Monique MD Hypertensive disorder ALCOHOL ABUSE 75911664 (SNOMED CT) 11/22 Active 11/22 Pratik Monique [...] TABLETS IN 24 HOURS. FOR DIARRHEA loperamide 89831083517 Darshana Hoffmann APRN LOPERAMIDE HCL 2 MG TABS TAKE 2 TABLETS BY MOUTH ONCE THEN TAKE 1 TABLET AFTER EACH LOOSE BOWEL MOVEMENT. MAX 6 TABLETS IN 24 HOURS. as neededFOR DIARRHEA loperamide 72015190132 Darshana Hoffmann APRN iron 325 mg (65 mg iron) tablet Take 1 tablet by mouth once a day ferrous sulfate 43556301185 Darshana Hoffmann APRN LORATADINE 10 MG TABS as needed as directed TAKE 1 TABLET BY MOUTH EVERY DAY for runny nose and allergies loratadine 60634790944 Akilah Elder APRN FLUTICASONE PROPIONATE 50 MCG/ACT SUSP [place] 2 spray into both nostrils once a day as needed as directed FOR NASAL CONGESTION fluticasone propionate 80447926410 Akilah Elder APRN COUGH DROPS 5 MG LOZG Hold 1 lozenge in mouth four times a day as needed for cough/sore throat menthol 49033742747 Akilah Elder APRN NICODERM CQ 14 MG/24HR PT24 Apply 1 patch to skin once a day remove and replace patch daily for 6 weeks nicotine 17822121738 Deepti Salazar APRN ACETAMINOPHEN 500 MG TABS Take 1 tablet by mouth every six to eight hours as needed for pain for neck pain acetaminophen 24568716979 Deepti Salazar APRN ATORVASTATIN CALCIUM 40 MG TABS Take 1 tablet by mouth every night atorvastatin 45197417594 Darshana Hoffmann APRN CLOPIDOGREL BISULFATE 75 MG TABS TAKE 1 TABLET BY MOUTH EVERY DAY clopidogrel 59326559437 Darshana Hoffmann APRN ESCITALOPRAM OXALATE 10 MG TABS Take 1 tablet by mouth once a day escitalopram oxalate 74201643985 Darshana Hoffmann APRN LISINOPRIL 5 MG TABS Take 1 tablet by mouth once a day lisinopril 61261241316 Darshana Hoffmann APRN OXCARBAZEPINE 150 MG TABS 1 tablet by mouth twice a day oxcarbazepine 53892936532 Darshana Hoffmann APRN PANTOPRAZOLE SODIUM 40 MG TBEC Take 1 tablet by mouth once a day pantoprazole 45375571818 Darshana Hoffmann APRN TAMSULOSIN HCL 0.4 MG CAPS Take 1 capsule by mouth every night for prostate tamsulosin 34799653014 Darshana Hoffmann APRN TRAZODONE HCL 50 MG TABS Take 1 tablet by mouth every night at bedtime as needed as directed trazodone 13307442296 Darshana Hoffmann APRN ATORVASTATIN CALCIUM 40 MG TABS Take 1 tablet by mouth every night atorvastatin 35244936491 Darshana Potts APRN AMLODIPINE BESYLATE 5 MG TABS Take 1 tablet by mouth once a day amlodipine 39992244406 Darshana Potts APRN AMLODIPINE BESYLATE 5 MG TABS TAKE 1 TABLET BY MOUTH 1 TIME A DAY AMLODIPINE BESYLATE 90489296580 Pratik Monique MD Medications Administered No information [...] in Blood ABS NEUTROPH 4388 CELLS/UL 10*3/uL 5534-4241 N Neutrophils [#/volume] in Blood MPV 11.4 fL 7.5-12.5 N Platelet aufa n volume [Entitic volume] in Blood by [...] Plan of Care Type Date Detail Referral [facility] [place], [address] Pending order T1 CBC with diff Pending [...] Medication list docu mented in medical record [facility]-[id number] Medication Reconciliation 4004F Patient screened for tobacco use and received tobacco cessation intervention [id number] Current every day smoker 20 11/03/18 [id number] Smoking cessation education CPT-1160F Review of all medica tions by a prescribing practitioner [facility] 6399 T1 CBC with diff [facility] 59230 T1 CMP [id number] Medication Reconciliation CPT-3074F Most recent systolic blood pressure <130 mm Hg CPT-3078F Most recent diastoli c blood pressure <80 mm Hg CPT-1159F Medication list docu mented in medical record CPT-1160F Review of all medica tions by a prescribing practitioner 4004F Patient screened for tobacco use and received tobacco cessation intervention [id number] Current every day smoker 20 11/03/04 [id number] Smoking cessation education SCT-469831738 Giving encouragement to exercise 4004F Patient screened for tobacco use and received tobacco cessation intervention [id number] Medication Reconciliation CPT-3074F Most recent systolic blood pressure <130 mm Hg CPT-3078F Most recent diastoli c blood pressure <80 mm Hg CPT-1159F Medication list docu mented in medical record CPT-1160F Review of all medica tions by a prescribing practitioner [id number] Medication Reconciliation 4004F Patient screened for tobacco use and received tobacco cessation intervention SCT-927110959 Current every day smoker 20 08/02/29 [id number] Smoking cessation education CPT-3074F Most recent systolic [...] c blood pressure <80 mm Hg [facility] 57454 T1 G.C. Chlamydia 4004F Patient screened for tobacco use and received tobacco cessation intervention [facility]-[id number] Medication Reconciliation [facility] 6399 T1 CBC with diff [facility] 10567 T1 CMP [facility] 496 T1 HGBA1c [facility] 27008 T1 TSH reflex to free T4 06/21/03 [facility] 5363 T1 Prostate Screening 08/19 [facility] 96335 T1 Acute Hepatits Panel 2022 [facility] 7573 [...]
[2025-02-21] MEDS: SODIUM CHLORIDE 0.9% 10ML SYR (RAD ONLY) 10 ML IV (14:33)
[2025-02-21] MEDS: IOPAMIDOL-370 (76%);100ML BOTTLE 75 ML IV (14:33)
== END 2025-02-21 23:59 | disposition home or self-care (01) ==
LOC: RAD 13:46
PROVIDERS: PCP Podiatrist; Visit Provider Podiatrist
DX: M19.072 Primary osteoarthritis, left ankle and foot (principal); M20.12 Hallux valgus (acquired), left foot; M20.42 Other hammer toe(s) (acquired), left foot; I70.245 Atherosclerosis of native arteries of left leg with ulceration of other part of foot; L97.529 Non-pressure chronic ulcer of other part of left foot with unspecified severity; M79.89 Other specified soft tissue disorders
CPT/HCPCS: 73702; Q9967

== ENCOUNTER 2025-03-05 11:38 | Outpatient (CLI) | payer MEDICAID, SELFPAY ==
[2025-03-05 12:07] LABS: Hematocrit 42.4 % (42.0-52.0); Hemoglobin 13.6 g/dL (14.1-18.0); Immature Granulocytes % 0.3 %; Mean Corpuscular HGB Conc 32.1 g/dL (31.8-35.4); Mean Corpuscular Hemoglobin 26.5 pg (27.0-31.2); Mean Corpuscular Volume 82.5 fl (80-94); Nucleated Red Blood Cells % 0 %; Platelet Count 337 K/mm3 (142-424); Red Blood Count 5.14 M/mm3 (4.60-6.20); Red Cell Distribution Width-SD 53.2 fL; White Blood Count 9.9 K/mm3 (4.8-10.8)
[2025-03-05 14:30] LABS: Alanine Aminotransferase 21 U/L (12-78); Albumin Level 4.6 g/dl (3.5-5.0); Albumin/Globulin Ratio 1.7 (1.1-1.8); Alkaline Phosphatase 102 U/L (38-126); Anion Gap 13.8 mEq/L (5-15); Aspartate Amino Transferase 22 U/L (17-59); Bilirubin,Total 1.0 mg/dl (0.2-1.3); Blood Urea Nitrogen 12 mg/dl (9-20); Calcium 9.5 mg/dl (8.4-10.2); Carbon Dioxide 23 mmol/L (22.0-30.0); Chloride 105 mmol/L (98-107); Creatinine,Serum 0.70 mg/dl (0.66-1.25); Estimated Glomerular Filt Rate 114 ml/min (>60); GFR (African American) 138 ML/MIN (>60); Globulin 2.7 g/dL (1.3-3.2); Glucose 105 mg/dl (74-100); Potassium 3.8 mmoL/L (3.5-5.1); Sodium 138 mmol/L (136-145); Total Protein,Serum 7.3 g/dl (6.3-8.2)
[2025-03-05 14:36] LABS: C-Reactive Protein 1.2 mg/L (0-4)
== END 2025-03-05 23:59 | disposition home or self-care (01) ==
LOC: LAB 11:38
PROVIDERS: Visit Provider Podiatrist
DX: L97.522 Non-pressure chronic ulcer of other part of left foot with fat layer exposed (principal); M20.12 Hallux valgus (acquired), left foot; G62.9 Polyneuropathy, unspecified
CPT/HCPCS: 36415; 80053; 85025; 85651; 86140

== ENCOUNTER 2025-03-27 10:49 | Day surgery (SDC) | payer MEDICAID, SELFPAY ==
[2025-03-05 15:05] VITALS: BMI 20.9
[2025-03-27] VITALS (10 sets, daily range): BP systolic 78–150; BP diastolic 51–87; PULSE 65–75; RESP 15–18; TEMP 36.1–38; O2SAT 91–97
[2025-03-27 12:09] LABS: Hematocrit 44.0 % (42.0-52.0); Hemoglobin 14.2 g/dL (14.1-18.0); Immature Granulocytes % 0.2 %; Mean Corpuscular HGB Conc 32.3 g/dL (31.8-35.4); Mean Corpuscular Hemoglobin 26.7 pg (27.0-31.2); Mean Corpuscular Volume 82.9 fl (80-94); Nucleated Red Blood Cells % 0 %; Platelet Count 338 K/mm3 (142-424); Red Blood Count 5.31 M/mm3 (4.60-6.20); Red Cell Distribution Width-SD 53.7 fL; White Blood Count 9.4 K/mm3 (4.8-10.8)
--- NOTE | 2025-03-27 12:19 | EXP.ANES.CKL ---
[facility] Disclaimer: The information contained in this section may have been updated after the patient was seen, as this information can be updated by other users. Medical History Dysphagia Food impaction of esophagus Foreign body in throat Acute esophageal obstruction Mixed axonal-demyelinating polyneuropathy Anemia Head contusion Traumatic injury of head with loss of consciousness Bursitis of left foot Cellulitis of left foot Dyspnea Abnormal stress test Amputation finger Peripheral vascular disease Other specified symptoms and signs involving the circulatory and respiratory systems Numbness and tingling Hypertension Surgical History (Updated 03/27/25 @ 11:26 by Judith Stevens RN) History of amputation of left ring finger Family History Other No significant family history Social History (Updated 03/27/25 @ 11:26 by Judith Stevens RN) Smoking Status: Current every day smoker tobacco type: cigarettes packs per day: 1 alcohol intake: never substance use type: former substance user, marijuana and crack/cocaine current occupational status: retired Travel in the last 8 weeks?: None Have you lived/traveled outside US in past 30 days?: No Contact w/someone who lives/traveled outside US past 30 days?: No Exposure to someone with infectious disease in past 14 days?: No Do you have a fever (greater than 100.4 F or 38 C)?: No Have you tested positive for COVID-19?: No Exposed to someone with COVID-19 in past 14 days?: No Do you have a sore throat?: No Do you have a cough?: No Do you have any weakness?: No Do you have any diarrhea?: No Are you experiencing any unusual bleeding?: No Do you have any muscle aches/pain?: No Do you have any abdominal pain?: No Are you experiencing loss of taste or smell?: No [facility] Anesthesia Checklist Patient Identification Patient Identification: Arm Band Structural Data Admitted From: Home Planned Operative Procedure/s: Left Foot Bone Bx, I&D Consent for Planned Operative Procedure(s) Verified: Yes Verified Documents: Surgical Consent and History and Physical NPO Status Verified Time NPO: 00:00 Additional verifications Anesthesia Reactions: No Hx Blood Transfusions: No Blood Transfusion Reaction: No Airway Assessment Mallampati Score:: Class II C-Spine Mobility Assessed: Yes TMJ Mobility Assessed: Yes Neurological Assessment Level of Consciousness: Awake and Alert Anesthesia Plan Anesthesia Risk discussed: Yes Anesthesia Plan: Verified ASA Class: III Anesthesia Type: General
[2025-03-27 12:30] LABS: Alanine Aminotransferase 20 U/L (12-78); Albumin Level 4.8 g/dl (3.5-5.0); Albumin/Globulin Ratio 1.4 (1.1-1.8); Alkaline Phosphatase 106 U/L (38-126); Anion Gap 18.1 mEq/L (5-15); Aspartate Amino Transferase 26 U/L (17-59); Bilirubin,Total 1.1 mg/dl (0.2-1.3); Blood Urea Nitrogen 9 mg/dl (9-20); Calcium 9.5 mg/dl (8.4-10.2); Carbon Dioxide 26 mmol/L (22.0-30.0); Chloride 105 mmol/L (98-107); Creatinine Clearance Estimated 69 mL/min (50-200); Creatinine,Serum 0.70 mg/dl (0.66-1.25); Estimated Glomerular Filt Rate 114 ml/min (>60); GFR (African American) 138 ML/MIN (>60); Globulin 3.5 g/dL (1.3-3.2); Glucose 108 mg/dl (74-100); Potassium 4.1 mmoL/L (3.5-5.1); Sodium 145 mmol/L (136-145); Total Protein,Serum 8.3 g/dl (6.3-8.2)
[2025-03-27 12:35] LABS: C-Reactive Protein 0.8 mg/L (0-4)
[2025-03-27] MEDS: VANCOMYCIN/WATER FOR INJ (PEG) 1.25 GM/250 ML PIGGYBACK IV (13:51)
[2025-03-27] MEDS: CLINDAMYCIN PHOSPHATE/D5W 900 MG/50 ML PIGGYBACK 100 MG IV (13:52)
[2025-03-27] MEDS: BUPIVACAINE 0.5% 30ML VIAL 150 MG (13:54)
[2025-03-27] MEDS: GENTAMICIN 80 MG/2 ML VIAL (13:54)
--- NOTE | 2025-03-27 14:15 | P.OP_ITS ---
Date of procedure: 03/27/25 Pre-op Diagnosis:: Left hallux valgus/bunion Left arterial ulcer PAD Post-op Diagnosis:: Same Procedure performed:: Left foot I&D bone cortex for OM Partial resection metatarsal, silver bunionectomy with capsulotomy Open bone biospy Wound wide excisional debridement Surgeon:: Krista Almodovar DPM ENERGY CONSERVATION ENGINEER:: Luigi Herrera Anesthesia: GETA and local (20cc 0.5% marcaine plain) Estimated blood loss (mL): 10 Clinical Note:: Patient is a 64 year-old male with left foot arterial ulcer. Patient has failed conservative treatment, including multiple debridements, various wound dressings, antibiotics, immobilization, antibiotics. Patient has seen ca rdiology. Discussed conservative versus surgical treatment options. Recent labs and CT left foot suspicious for first metatarsal medial head osteomyelitis. Based on unchanged clinical picture plus suspicion of osteomyelitis combined with bunion/hammertoe deformity, discussed doing partial resection of first metatarsal head and open bone biopsy to rule out osteomyelitis. Discussed oral/IV antibiotics and the possibility of PICC line depending on cultures/IntraOp specimen findings. Discussed the foot can change shape after surgery, toes may migrate, he may have gait changes and transfer skin lesion/new preulcerativecallus areas secondary to changes in foot structure/biomechanics. Risks and benefits were discussed including but not limited to: damage to blood vessels and nerves, bleeding, residual/recurrent/worsening infection, wound complications, need for further surgery, implant/graft failure, need for removal of implant/graft, allergic reaction, prolonged or permanent swelling of the extremity, prolonged or permanent pain or deformity, CRPS/RSD, DVT/PE, and anesthetic complications including anaphylaxis or . Patient understands if wound/graft gets re/infected or does not heal/gangrene, it could lead to prolonged oral or IV antibiotics or increased risk of osteomyelitis, which could lead to possible loss of toe, partial foot or even BKA. No guarantees were given. All questions fully answered. The patient verbalized understanding and agreed to proceed with surgery. Verbal and written consent was obtained. Cardiac clearance granted. On anticoagulation therapy for PAD (stents) which was not stopped. Operative findings:: Left foot hallux valgus with bunion noted. Large dorsal medial eminence with arterial ulcer. The ulcer was scabbed over, wound base 100% yellow eschar. Predebridement wound measured 0.3 x 0.3 x 0.0 cm. No purulence malodor or ascending cellulitis. 15 blade forceps used to sharply excisionally perform full-thickness wound debridement through skin, subcutaneous tissue into/including deep fascia. Ulcer excised/removed in total and sent to pathology specimen. Dorsal medial eminence bone was soft, transected and sent for bone culture bone pathology. Underlying bone was sent as specimen. No purulence from the bone. No sinus tracking or deep signs of infection noted. Prognosis: Fair/good as it appears prior infection has resolved. Operative note:: On this date and time patient was deemed an appropriate surgical candidate. With informed consent signed, the patient was taken to the operating theater room. The patient was positioned supine. General anesthesia was induced. No tourniquet used. IV Vanco 1g, Cefepime 1g given. The left lower extremity was prepped and draped in normal sterile fashion. 10cc 0.5% Marcaine plain was given in an ankle block. Left foot wound debridement, ulcer biopsy: Attention was directed to the distal medial dorsal eminence bunion bump where an ulcer was noted. See operative findings for measurements. The wound base was fibrotic with scar tissue noted. There was no periwound maceration. The skin edges were debrided with 15' blade, some bleeding noted. The wound was sharply excisionally debrided with 15 blade forceps curette and rongeur full-thickness through skin, subcutaneous tissue into the level of the deep fascia. All non-viable fibrotic scar tissue, nonviable tissue and biofilm was debrided. The ulcer was excised and sent as a soft tissue biopsy to path. Post debridement, there was some bleeding was noted. Granular base was noted. Left foot I&D bone cortex, open bone biopsy: Semi elliptical incision was made around the prior wound/scar tissue full-thickness down through deep fascia/joint capsule to the bone. A 15 blade and rongeur was used to resect a piece of the bone for specimen, performing I&D of the bone cortex to evaluate for osteomyelitis. Left partial first metatarsal resection/silver bunionectomy: Linear incision was then mapped out directly over the dorsal medial eminence. Care used to retract neurovascular structures. Mid bleeding noted. Saw was used to resect the large dorsal medial eminence and a piece of the bone was sent for bone culture and bone pathology. Wound flushed with gentamicin irrigation. Joint capsule was thick and synovitic but with no obvious signs of purulence or infection. A piece of the joint capsule was resected for the capsulotomy. This piece of joint capsule was sent for path. The wound was re-explored and no signs of infection noted. Vicryl and 2-0 Nylon was used to close skin in an interrupted simple suture fashion. Skin edges were fully reapproximated. Skin cleansed. 10cc 0.5% Marcaine plain given around incision site. Xeroform, betadine soaked gauze, dry sterile dressing applied to foot. The patient tolerated the procedure and anesthesia well, without complications. Patient transferred to recovery with vital signs stable neurovascular status intact to be discharged back to facility today. Materials: 2-0 Nylon Discharge/plan: Maintain dressing clean dry and intact to left foot, reinforce as necessary. Do not get wet in shower. If dressing gets wet, will need to be changed immediately with: Betadine soaked gauze, dry gauze, Cally/Kerlix, Taj. PWB to heel in short fracture boot, walker. Completed course of oral abx: Doxy until gone. Has Oxycodone 5mg prn pain, ok to take Motrin and Tylenol alterating for pain, Zofran prn nausea. Follow up with Podiatry in one week for wound re-evaluation and dressing change. Condition: stable Disposition: same day Specimens:: Micro: Left 1st met bone culture Path: Left 1st met bone, ulcer, capsule Complications:: None
--- NOTE | 2025-03-27 14:22 | EXP.ANES.I ---
[facility] Anesthesia Record Part I Anesthesia Record I Intake, IV Amount: 1,200 Hydration: Adequate Estimated blood loss (mL): 0 Urine output (mL): 0 Blood Pressure: 93/60 SaO2: 92 Pulse Rate: 68 Airway Patency: Patent Respiratory Rate: 16 Temperature: 97.5 F Patient is:: Awake and Stable Stable to PACU at:: 14:20
--- NOTE | 2025-03-27 15:00 | XR_ITS ---
FINAL REPORT CLINICAL HISTORY: s/p bunionectomy COMPARISON: 12/05/2024 FINDINGS: LEFT FOOT Three views of the left foot demonstrate no acute fracture or dislocation. There is diffuse soft tissue edema about the first metatarsal phalangeal joint. There has been resection at the medial aspect of the distal first metatarsal consistent with known recent bunionectomy. IMPRESSION: Soft tissue edema and changes from recent bunionectomy. Reviewed, Interpreted and Dictated by Saul Prince MD Transcribed by Aditi Lombardi Authenticated and [facility]
--- NOTE | 2025-03-27 16:12 | SUR.PHASEII ---
1515: Report given over the phone to caregiverCourt.
--- NOTE | 2025-03-29 07:45 | P.PNANES_ITS ---
[facility] Anesthesia Record Part II Anesthesia Record Part II Discharge Time: 15:21 Destination: Surgical Day Care (OP Surgery) PACU nurse assessment reviewed?: Yes Patient Condition:: Good Anesthesia Complications:: None Swallowing reflex intact?: Yes Airway Patency: Patent Cyanosis?: No Blood Pressure: 136/87 SaO2: 93 Respiratory Rate: 16 Pulse Rate: 67 Temperature: 97.0 F Mental Status: Alert & Oriented Pain level:: 0 Nausea and/or vomitting:: None Intake, IV Amount: 0 Hydration: Adequate
[2025-03-29 07:46] VITALS: BP 136/87; PULSE 67; RESP 16; TEMP 36.1; O2SAT 93
== END 2025-03-27 15:30 | disposition home or self-care (01) ==
PROVIDERS: PCP Nurse Practitioner Family; Visit Provider Podiatrist
PROC: (CPT 28289; principal; 2025-03-27 12:15)
DX: L97.522 Non-pressure chronic ulcer of other part of left foot with fat layer exposed (principal); M21.612 Bunion of left foot; F17.210 Nicotine dependence, cigarettes, uncomplicated; M79.673 Pain in unspecified foot; I70.25 Atherosclerosis of native arteries of other extremities with ulceration; M20.12 Hallux valgus (acquired), left foot; G62.9 Polyneuropathy, unspecified; I10 Essential (primary) hypertension; Z79.02 Long term (current) use of antithrombotics/antiplatelets; Z79.82 Long term (current) use of aspirin; Z79.01 Long term (current) use of anticoagulants
CPT/HCPCS: 28110; 73630; 80053; 85025; 85651; 86140; 88304; 96374; J0665; J0736; J1100; J1580; J2003; J2250; J2405; J2704; J3010; J3375